=== PATIENT | female | born 1955 | race African-American/Black ===

== ENCOUNTER 2016-09-17 14:55 | Emergency (ER) | payer MEDICAID ==
[2016-09-17] MEDS ORDERED: ASPIRIN 325 MG TABLET, ENT COATED PO ONE (16:05)
[2016-09-17] MEDS ORDERED: FUROSEMIDE 40 MG TABLET PO ONE (16:05)
--- NOTE | 2016-09-17 16:06 | ER Document Report ---
ED Medical Screen (RME) - General Chief Complaint: Chest Pain Stated Complaint: CHEST PAINS Time Seen by Provider: 09/17/16 16:03 Mode of Arrival: Ambulatory Information source: Patient Notes: Patient complains of 2 day history of indigestion type midsternal chest discomfort associated shortness of breath. She also reports worsening shortness of breath and dyspnea on exertion for 2 weeks. Patient reports prior history of symptoms like this in association with congestive heart failure urine she reports no recent changes in her medicines. Also noted to be hypertensive and outpatient facility today and was referred to [facility] for that reason. She is pain-free at the moment Physical exam Well-developed well-nourished female alert no respiratory distress rest Skin warm and dry Chest faint crackles in bases bilaterally good aeration no accessory muscle use Heart regular rate and rhythm TRAVEL OUTSIDE OF THE [place] IN LAST 30 DAYS: No - Related Data Allergies/Adverse Reactions: No Known Allergies Allergy (Verified 09/17/16 15:46) Past Medical History - Past Medical History Cardiac Medical History: Reports: Hx Congestive Heart Failure - Chronic systolic last EF was 45%, Hx Coronary Artery Disease, Hx Hypercholesterolemia, Hx Hypertension Denies: Hx DVT, Hx Heart Attack, Hx Pulmonary Embolism Pulmonary Medical History: Reports: Hx Asthma - medicated prn/no hospitalizations, Hx Bronchitis, Hx COPD Denies: Hx Pneumonia Neurological Medical History: Reports: Hx Cerebrovascular Accident - several years ago/no residual effects. Denies: Hx Seizures Endocrine Medical History: Reports: Hx Diabetes Mellitus Type 2. Denies: Hx Hyperthyroidism, Hx Hypothyroidism Renal/ Medical History: Denies: Hx Peritoneal Dialysis GI Medical History: Denies: Hx Cirrhosis, Hx Gastroesophageal Reflux Disease, Hx Hepatitis, Hx Hiatal Hernia, Hx Ulcer Musculoskeltal Medical History: Denies Hx Arthritis Psychiatric Medical History: Reports: Hx Depression - denies suicidal/homicidal ideation Infectious Medical History: Denies: Hx Hepatitis Past Surgical History: Reports: Hx Section, Hx Tubal Ligation. Denies : Hx Hysterectomy, Hx Mastectomy, Hx Open Heart Surgery, Hx Pacemaker - Immunizations Hx Diphtheria, Pertussis, Tetanus Vaccination: No Physical Exam - Vital signs Vitals: Temp Pulse Resp BP Pulse Ox 98.5 F 86 18 185/93 H 95 09/17/16 15:18 09/17/16 15:18 09/17/16 15:18 09/17/16 15:18 09/17/16 15:18 Course - Vital Signs Vital signs: Temp Pulse Resp BP Pulse Ox 98.5 F 86 18 185/93 H 95 09/17/16 15:18 09/17/16 15:18 09/17/16 15:18 09/17/16 15:18 09/17/16 15:18
[2016-09-17 16:59] LABS: ABSOLUTE EOSINOPHILS # (AUTO) 0.1 10^3/uL (0.0-0.6); ABSOLUTE LYMPHOCYTES (AUTO) 1.9 10^3/uL (0.5-4.7); ABSOLUTE MONOCYTES (AUTO) 0.5 10^3/uL (0.1-1.4); ABSOLUTE NEUT (AUTO) 5.5 10^3/uL (1.7-8.2); BASOPHILS % (AUTO) 0.3 % (0-2); EOSINOPHILS % (AUTO) 0.8 % (0-6); HEMATOCRIT 39.3 % (36.0-47.0); HEMOGLOBIN 12.7 g/dL (12.0-15.5); HGB HCT DIFFERENCE -1.2; LYMPHOCYTES % (AUTO) 23.6 % (13-45); MEAN CORPUSCULAR HEMOGLOBIN 29.4 pg (27.0-33.4); MEAN CORPUSCULAR HGB CONC 32.3 g/dL (32.0-36.0); MEAN CORPUSCULAR VOLUME 91 fl (80-97); MONOCYTES % (AUTO) 6.1 % (3-13); RED BLOOD COUNT 4.33 10^6/uL (3.72-5.28); RED CELL DISTRIBUTION WIDTH 13.8 % (11.5-14.0); SEGMENTED NEUTROPHILS % (AUTO) 69.2 % (42-78)
[2016-09-17 17:19] LABS: ALANINE AMINOTRANSFERASE 23 U/L (9-52); ALBUMIN 4.1 g/dL (3.5-5.0); ALKALINE PHOSPHATASE 110 U/L (38-126); ANION GAP 12 (5-19); ASPARTATE AMINO TRANSFERASE 12 U/L (14-36); BILIRUBIN,DIRECT 0.4 mg/dL (0.0-0.4); BILIRUBIN,TOTAL 0.8 mg/dL (0.2-1.3); BLOOD UREA NITROGEN 15 mg/dL (7-20); CALCIUM 9.4 mg/dL (8.4-10.2); CARBON DIOXIDE 28 mmol/L (22-30); CHLORIDE 100 mmol/L (98-107); CREATINE KINASE 79 U/L (30-135); CREATININE RESULT 0.66 mg/dL (0.52-1.25); GLUCOSE 375 mg/dL (75-110); LIPASE 175.7 U/L (23-300); POTASSIUM 3.7 mmol/L (3.6-5.0); SODIUM 139.6 mmol/L (137-145); TOTAL PROTEIN 7.3 g/dL (6.3-8.2)
[2016-09-17 17:30] LABS: TROPONIN I < 0.012 ng/mL
[2016-09-17] MEDS ORDERED: LIDOCAINE 2% VISCOUS SOLN 20 ML UDCUP PO ONE (19:36)
[2016-09-17] MEDS ORDERED: MAG HYDROX/AL HYDROX/SIMETH SUSP 30 ML UDCUP PO ONE (19:36)
[2016-09-17] MEDS ORDERED: METOCLOPRAMIDE HCL ORAL SOLN 10 MG/10 ML UDCUP PO ONE (19:36)
--- NOTE | 2016-09-17 19:38 | ER Document Report ---
ED Cardiac - General Chief Complaint: Chest Pain Stated Complaint: CHEST PAINS Time Seen by Provider: 09/17/16 16:03 Mode of Arrival: Ambulatory Information source: Patient Notes: Patient is a 61-year-old -[place] female with history of CHF, diabetes, hypertension, hyperlipidemia who presents to the ER today for elevated blood pressure readings that began this morning with some intermittent chest pains. Patient describes her chest pain as "heartburn" and states that it is a burning feeling in the center of her chest that radiates over to the left. She has not taken anything for her chest pain today. She states that the chest pain is exacerbated by deep breathing. She states she was at the doctor this morning and had a normal blood pressure of 110/70. She has not taken her afternoon blood pressure medication yet, carvedilol. She has no history of heart attack or stroke. She denies any shortness of breath, nausea, vomiting, numbness or tingling anywhere. She denies any cough or other symptoms. TRAVEL OUTSIDE OF THE [place] IN LAST 30 DAYS: No - Related Data Allergies/Adverse Reactions: No Known Allergies Allergy (Verified 09/17/16 15:46) Past Medical History - General Information source: Patient - Social History Smoking Status: Never Smoker Chew tobacco use (# tins/day): No Frequency of alcohol use: None Drug Abuse: None Family History: CAD, CVA, DM Patient has suicidal ideation: No Patient has homicidal ideation: No - Past Medical History Cardiac Medical History: Reports: Hx Congestive Heart Failure - Chronic systolic last EF was 45%, Hx Coronary Artery Disease, Hx Hypercholesterolemia, Hx Hypertension Denies: Hx DVT, Hx Heart Attack, Hx Pulmonary Embolism Pulmonary Medical History: Reports: Hx Asthma - medicated prn/no hospitalizations, Hx Bronchitis, Hx COPD Denies: Hx Pneumonia Neurological Medical History: Reports: Hx Cerebrovascular Accident - several years ago/no residual effects. Denies: Hx Seizures Endocrine Medical History: Reports: Hx Diabetes Mellitus Type 2. Denies: Hx Hyperthyroidism, Hx Hypothyroidism Renal/ Medical History: Denies: Hx Peritoneal Dialysis GI Medical History: Denies: Hx Cirrhosis, Hx Gastroesophageal Reflux Disease, Hx Hepatitis, Hx Hiatal Hernia, Hx Ulcer Musculoskeltal Medical History: Denies Hx Arthritis Psychiatric Medical History: Reports: Hx Depression - denies suicidal/homicidal ideation Infectious Medical History: Denies: Hx Hepatitis Past Surgical History: Reports: Hx Section, Hx Tubal Ligation. Denies : Hx Hysterectomy, Hx Mastectomy, Hx Open Heart Surgery, Hx Pacemaker - Immunizations Hx Diphtheria, Pertussis, Tetanus Vaccination: No Review of Systems - Review of Systems Constitutional: No symptoms reported EENT: No symptoms reported Cardiovascular: See HPI Respiratory: See HPI Gastrointestinal: No symptoms reported Genitourinary: No symptoms reported Female Genitourinary: No symptoms reported Musculoskeletal: No symptoms reported Skin: No symptoms reported Hematologic/Lymphatic: No symptoms reported Neurological/Psychological: No symptoms reported Physical Exam - Vital signs Vitals: Temp Pulse Resp BP Pulse Ox 98.5 F 86 18 185/93 H 95 09/17/16 15:18 09/17/16 15:18 09/17/16 15:18 09/17/16 15:18 09/17/16 15:18 - Notes Notes: PHYSICAL EXAMINATION: GENERAL: Well-appearing, reading book, and in no acute distress. HEAD: Atraumatic, normocephalic. EYES: Pupils equal round and reactive to light, extraocular movements intact, sclera anicteric, conjunctiva are normal. NECK: Normal range of motion, supple without lymphadenopathy LUNGS: CTAB and equal. No wheezes rales or rhonchi. HEART: Left chest tender to palpation, Regular rate and rhythm without murmurs ABDOMEN: Soft, no tenderness. No guarding, no rebound BACK: no vertebral tenderness, normal ROM GI/: no CVA tenderness EXTREMITIES: Normal range of motion, no pitting edema. No cyanosis. NEUROLOGICAL: Cranial nerves grossly intact. Normal sensory/motor exams. PSYCH: Normal mood, normal affect. SKIN: Warm, Dry, normal turgor, no rashes or lesions noted Course - Re-evaluation Re-evalutation: 09/17/16 20:46 Patient states the GI cocktail did relieve her pain and also states that lifting her breast relieves her pain is well. She is tender to palpation chest. At this time she has 2 sets of negative cardiac enzymes 4 hours apart and an EKG revealing a normal sinus rhythm at a rate of 85 bpm without evidence of ischemia or abnormality. 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 Follow up with primary care provider, call tomorrow to make followup appointment. Prescriptions: Omeprazole Magnesium [Prilosec Otc] 20 mg PO BID #14 tablet. Sucralfate [Carafate 1 gm Tablet] 1 gm PO ACHS #40 tablet
[2016-09-17 20:04] LABS: APPEARANCE,URINE CLEAR; BILIRUBIN,URINE NEGATIVE (NEGATIVE); GLUCOSE, URINE NEGATIVE (NEGATIVE); KETONES,URINE NEGATIVE (NEGATIVE); LEUKOCYTE ESTERASE,URINE NEGATIVE (NEGATIVE); NITRITE,URINE NEGATIVE (NEGATIVE); PROTEIN,URINE NEGATIVE (NEGATIVE); URINE SPECIFIC GRAVITY 1.004; UROBILINOGEN,URINE NEGATIVE mg/dL (<2.0)
[2016-09-17 20:59] VITALS: BP 118/72
--- NOTE | 2016-09-17 23:38 | EKG REPORT ---
SEVERITY:- ABNORMAL ECG - SINUS RHYTHM PROBABLE LEFT ATRIAL ABNORMALITY LVH WITH SECONDARY REPOLARIZATION ABNORMALITY : Confirmed by: Sanjana Natarajan 17-Sep-2016 23:37:36
== END 2016-09-17 20:59 | disposition home or self-care (01) ==
LOC: ER 14:55
DX: R07.9 Chest pain, unspecified (principal); I10 Essential (primary) hypertension; I25.10 Atherosclerotic heart disease of native coronary artery without angina pectoris; E11.9 Type 2 diabetes mellitus without complications; J44.9 Chronic obstructive pulmonary disease, unspecified; Z79.899 Other long term (current) drug therapy; Z82.49 Family history of ischemic heart disease and other diseases of the circulatory system; Z86.73 Personal history of transient ischemic attack (TIA), and cerebral infarction without residual deficits
CPT/HCPCS: 93005; 99285; 36415; 82553; 82550; 83690; 85025; 80053; 81001; 84484; 83880; 71010; 93010; J3490 ×4

== ENCOUNTER → 2016-12-26 | Outpatient (CLI) | payer SELFPAY ==
--- NOTE | 2017-01-01 17:28 | WOMENS IMAGING REPORT ---
EXAM DESCRIPTION: BILAT SCREENING MAMMO W/CAD COMPLETED DATE/TIME: 12/26/2016 9:44 am REASON FOR STUDY: ROUTINE BILATERAL SCREENING;Z12.31 Z12.31 ENCNTR SCREEN MAMMOGRAM FOR MALIGNANT N EOPLASM OF MARITZA COMPARISON: 2013, 2012 TECHNIQUE: Standard craniocaudal and mediolateral oblique views of each breast recorded using [place] l acquisition. LIMITATIONS: None. FINDINGS: RIGHT BREAST MASSES: In the right breast, 10 cm from the nipple at the 12 o'clock position, for a 5 mm nodule is p resent, more prominent than on previous exams. This requires further evaluation with compression mag nification views, right breast 90 mediolateral view, and ultrasound. CALCIFICATIONS: No new or suspicious calcifications. ARCHITECTURAL DISTORTION: None. DEVELOPING DENSITY: None. ASYMMETRY: None noted. OTHER: No other significant findings. LEFT BREAST MASSES: No suspicious masses. CALCIFICATIONS: No new or suspicious calcifications. ARCHITECTURAL DISTORTION: None. DEVELOPING DENSITY: None. ASYMMETRY: None noted. OTHER: No other significant findings. Read with the assistance of CAD. .[facility] - R2 Cenova Version 1.3 .[facility] - R2 Cenova Version 1.3 .[facility] - R2 Cenova Version 2.4 .[facility] [place] R2 Cenova Version 2.4 .[facility] - R2 [employer] Version 9.2 IMPRESSION: Right breast nodule 12 o'clock position for which additional diagnostic compression magn ification views, 90 mediolateral view, and ultrasound are recommended for followup No mammographic evidence for malignancy left breast BREAST DENSITY: b. There are scattered areas of fibroglandular density. BIRAD: 0 Incomplete: Needs Additional Imaging Evaluation and/or prior Mammograms for Comparison. RECOMMENDATION: RECOMMENDED FOLLOW-UP: Right breast diagnostic mammograms and ultrasound The patient will be contacted for additional imaging. COMMENT: The patient has been notified of the results by letter per [place] requirements. Additional no tification policies are in place for contacting patient with suspicious or incomplete findings. Quality ID #[id number]: The [employer] recommends an annual screening mammogram for women aged 40 years or over. This facility utilizes a reminder system to ensure that all patients receive reminder letters, and/or direct phone calls for appointments. This includes reminders for routine scr eening mammograms, diagnostic mammograms, or other Breast Imaging Interventions when appropriate. Th is patient will be placed in the appropriate reminder system. The [employer] (ACR) has developed recommendations for screening MRI of the breast s in certain patient populations, to be used in conjunction with mammography. Breast MRI surveillanc e may be appropriate for women with more than 20% lifetime risk of developing breast cancer as deter mined by genetic testing, significant family history of the disease, or history of mantle radiation f or Hodgkins Disease. ACR Practice Guidelines 2008. TECHNICAL DOCUMENTATION: FINDING NUMBER: (1) ASSESSMENT: (1) JOB ID: [id number] [employer]- All Rights Reserved
== END ==
LOC: WI 09:56
PROVIDERS: ATTEND Physician Assistant
DX: Z12.31 Encounter for screening mammogram for malignant neoplasm of breast (principal); N63 Unspecified lump in breast
CPT/HCPCS: 77067; G0202

== ENCOUNTER → 2017-01-19 | Outpatient (CLI) | payer MEDICAID ==
--- NOTE | 2017-01-19 16:26 | WOMENS IMAGING REPORT ---
EXAM DESCRIPTION: RIGHT DIAGNOSTIC MAMMO W/CAD; U/S BREAST UNILATERAL, COMPL COMPLETED DATE/TIME: 01/19/2017 1:01 pm; 01/19/2017 11:22 am REASON FOR STUDY: NODULAR DENSITY N63 UNSPECIFIED LUMP IN BREAST COMPARISON: Bilateral screening mammogram 11/14/2011 TECHNIQUE: Cone compression craniocaudal and mediolateral oblique images of the breast recorded with digital acquisition. Right breast 90 mediolateral view. Right breast ultrasound performed by both myself as well as the technologist. LIMITATIONS: None. FINDINGS: BREAST: right MASSES: At the deep 12 o'clock position, a 5 mm mammographic nodule is present with lobular borders. No associated architectural distortion or calcifications. CALCIFICATIONS: No new or suspicious calcifications. ARCHITECTURAL DISTORTION: None. DEVELOPING DENSITY: None. ASYMMETRY: None noted. OTHER: No other significant findings. Right breast ultrasound: Ultrasound was performed by both myself as well as the technologist. The right breast 12 o'clock pos ition, a tiny cluster of cysts is present together measuring about 5 mm in size. This correlates wit h the mammographic findings this is a benign finding which requires no further follow-up. IMPRESSION: Small breast parenchymal cyst right side 12 o'clock position, benign. No mammographic o r sonographic evidence for malignancy. BREAST DENSITY: b. There are scattered areas of fibroglandular density. BIRAD: 2 Benign findings. RECOMMENDATION: RECOMMENDED FOLLOW UP: Please continue yearly bilateral screening mammography in Jan. Consider bilateral screening tomosynthesis. SPECIFIC INTERVENTION/IMAGING/CONSULTATION RECOMMENDED:No additional intervention/ imaging/consultati on needed at this time. COMMUNICATION:These results were discussed with the patient at the time of scanning COMMENT: The patient has been notified of the results by letter per MQ[facility] requirements. Additional no tification policies are in place for contacting patient with suspicious or incomplete findings. Quality ID #[id number]: The [employer] recommends an annual screening mammogram for women aged 40 years or over. This facility utilizes a reminder system to ensure that all patients receive reminder letters, and/or direct phone calls for appointments. This includes reminders for routine scr eening mammograms, diagnostic mammograms, or other Breast Imaging Interventions when appropriate. Th is patient will be placed in the appropriate reminder system. The [employer] (ACR) has developed recommendations for screening MRI of the breast s in certain patient populations, to be used in conjunction with mammography. Breast MRI surveillanc e may be appropriate for women with more than 20% lifetime risk of developing breast cancer as deter mined by genetic testing, significant family history of the disease, or history of mantle radiation f or Hodgkins Disease. ACR Practice Guidelines 2008. TECHNICAL DOCUMENTATION: FINDING NUMBER: (1) ASSESSMENT: (1) JOB ID: [id number]- All Rights Reserved
== END ==
LOC: WI 09:15
PROVIDERS: ATTEND Physician Assistant
DX: Z12.31 Encounter for screening mammogram for malignant neoplasm of breast (principal); N60.01 Solitary cyst of right breast
CPT/HCPCS: 76641; G0206

== ENCOUNTER 2018-06-06 03:49 | Inpatient (IN) | payer MEDICAID ==
[2018-06-06 04:21] LABS: INTERNATIONAL RATION (INR) 0.81; PROTHROMBIN TIME 11.7 SEC (11.4-15.4)
[2018-06-06 04:27] LABS: ABSOLUTE BASOPHILS # (AUTO) 0.1 10^3/uL (0.0-0.2); ABSOLUTE EOSINOPHILS # (AUTO) 0.4 10^3/uL (0.0-0.6); ABSOLUTE LYMPHOCYTES (AUTO) 3.3 10^3/uL (0.5-4.7); ABSOLUTE MONOCYTES (AUTO) 0.9 10^3/uL (0.1-1.4); BASOPHILS % (AUTO) 0.5 % (0-2); EOSINOPHILS % (AUTO) 3.7 % (0-6); HEMATOCRIT 42.6 % (36.0-47.0); HEMOGLOBIN 14.3 g/dL (12.0-15.5); LYMPHOCYTES % (AUTO) 28.3 % (13-45); MEAN CORPUSCULAR HEMOGLOBIN 31.5 pg (27.0-33.4); MEAN CORPUSCULAR HGB CONC 33.6 g/dL (32.0-36.0); MEAN CORPUSCULAR VOLUME 94 fl (80-97); MONOCYTES % (AUTO) 7.4 % (3-13); PLATELET COUNT 391 10^3/uL (150-450); RED BLOOD COUNT 4.54 10^6/uL (3.72-5.28); RED CELL DISTRIBUTION WIDTH 13.6 % (11.5-14.0); SEGMENTED NEUTROPHILS % (AUTO) 60.1 % (42-78); TOTAL CELLS COUNTED % (AUTO) 100 %; WHITE BLOOD COUNT 11.6 10^3/uL (4.0-10.5)
[2018-06-06] MEDS ORDERED: MAG HYDROX/AL HYDROX/SIMETH SUSP 30 ML UDCUP PO ONE (04:40)
[2018-06-06] MEDS ORDERED: FAMOTIDINE 20 MG TABLET PO ONE (04:40)
--- NOTE | 2018-06-06 04:41 | ER Document Report ---
ED Medical Screen (RME) - General Stated Complaint: CHEST PAIN Time Seen by Provider: 06/06/18 04:33 Primary Care Provider: HAILEY BARRETO PA-C [Primary Care Provider] - Follow up as needed Notes: 62-year-old female with chief complaint of chest pain that woke her up tonight. Pain is in the center of her chest. She states it feels like burning and she needs a Tums. Past medical history includes CHF, hypertension, hyperlipidemia, type 2 diabetes, denies history of heart attack. She admits to cocaine use within the past week but denies use over the past 48 hours. Already given 325 mg of aspirin, came by EMS. TRAVEL OUTSIDE OF THE [place] IN LAST 30 DAYS: No - Related Data Allergies/Adverse Reactions: No Known Allergies Allergy (Verified 09/17/16 15:46) Past Medical History - Past Medical History Cardiac Medical History: Reports: Hx Congestive Heart Failure - Chronic systolic last EF was 45%, Hx Coronary Artery Disease, Hx Hypercholesterolemia, Hx Hypertension Denies: Hx DVT, Hx Heart Attack, Hx Pulmonary Embolism Pulmonary Medical History: Reports: Hx Asthma - medicated prn/no hospitalizations, Hx Bronchitis, Hx COPD Denies: Hx Pneumonia Neurological Medical History: Reports: Hx Cerebrovascular Accident - several years ago/no residual effects. Denies: Hx Seizures Endocrine Medical History: Reports: Hx Diabetes Mellitus Type 2. Denies: Hx Hyperthyroidism, Hx Hypothyroidism Renal/ Medical History: Denies: Hx Peritoneal Dialysis GI Medical History: Denies: Hx Cirrhosis, Hx Gastroesophageal Reflux Disease, Hx Hepatitis, Hx Hiatal Hernia, Hx Ulcer Musculoskeltal Medical History: Denies Hx Arthritis Psychiatric Medical History: Reports: Hx Depression - denies suicidal/homicidal ideation Infectious Medical History: Denies: Hx Hepatitis Past Surgical History: Reports: Hx Section, Hx Tubal Ligation. Denies: Hx Hysterectomy, Hx Mastectomy, Hx Open Heart Surgery, Hx Pacemaker - Immunizations Hx Diphtheria, Pertussis, Tetanus Vaccination: No Physical Exam - Respiratory Respiratory status: No respiratory distress. No: Respiratory distress, Labored Chest status: Nontender Breath sounds: Rales - Rales noted bilaterally, worse on the right - Cardiovascular Rhythm: Regular, Extrasystoles. No: Tachycardia, Bradycardia Heart sounds: Normal auscultation, S1 appreciated, S2 appreciated Course - Laboratory Result Diagrams: 06/06/18 04:02 06/06/18 04:02 Laboratory results interpreted by me: 06/06/18 04:02 WBC 11.6 H Doctor's Discharge - Discharge Referrals: HAILEY BARRETO PA-C [Primary Care Provider] - Follow up as needed
--- NOTE | 2018-06-06 04:49 | RADIOLOGY REPORT (SQ) ---
EXAM DESCRIPTION: XR CHEST 1 VIEW COMPLETED DATE/TME: 06/06/2018 03:52 CLINICAL HISTORY: 62 years, Female, CP/SOB COMPARISON: 04/23/2016 chest NUMBER OF VIEWS: 1 TECHNIQUE: Portable chest LIMITATIONS: None. FINDINGS: Cardiomegaly. Osteopenia. Atheromatous change thoracic aorta. Lungs are clear. No pneumothorax IMPRESSION: Cardiomegaly. Lungs are clear copyright 2011 [employer]- All Rights Reserved
[2018-06-06 05:05] LABS: CREATINE KINASE MB 0.38 ng/mL (<4.55); TROPONIN I 0.016 ng/mL
[2018-06-06 06:12] LABS: ALANINE AMINOTRANSFERASE 8 U/L (9-52); ALBUMIN 3.9 g/dL (3.5-5.0); ALKALINE PHOSPHATASE 97 U/L (38-126); ANION GAP 7 (5-19); ASPARTATE AMINO TRANSFERASE 13 U/L (14-36); BILIRUBIN,DIRECT 0.3 mg/dL (0.0-0.4); BILIRUBIN,TOTAL 0.6 mg/dL (0.2-1.3); BLOOD UREA NITROGEN 17 mg/dL (7-20); CALCIUM 9.3 mg/dL (8.4-10.2); CARBON DIOXIDE 34 mmol/L (22-30); CHLORIDE 102 mmol/L (98-107); CREATINE KINASE 36 U/L (30-135); GLUCOSE 174 mg/dL (75-110); SODIUM 142.7 mmol/L (137-145); TOTAL PROTEIN 6.8 g/dL (6.3-8.2)
[2018-06-06] MEDS ORDERED: KETOROLAC TROMETHAMINE INJ/PF 30 MG/1 ML SDV IV ONE (06:31)
--- NOTE | 2018-06-06 07:53 | EKG REPORT ---
SEVERITY:- ABNORMAL ECG - SINUS RHYTHM PROBABLE LEFT ATRIAL ABNORMALITY LVH WITH SECONDARY REPOLARIZATION ABNORMALITY ANTERIOR ST ELEVATION, PROBABLY DUE TO LVH : Confirmed by: Marylin Cavazos MD 06-Jun-2018 07:52:46
--- NOTE | 2018-06-06 07:53 | EKG REPORT ---
SEVERITY:- ABNORMAL ECG - SINUS RHYTHM VENTRICULAR PREMATURE COMPLEX LVH WITH SECONDARY REPOLARIZATION ABNORMALITY : Confirmed by: Marylin Cavazos MD 06-Jun-2018 07:52:41
[2018-06-06] MEDS ORDERED: LEVALBUTEROL HCL NEB 0.63 MG/3 ML AMPUL NEB PRN (08:46)
[2018-06-06] MEDS ORDERED: ONDANSETRON HCL INJ/PF 4 MG/2 ML SDV IV PRN (08:46)
[2018-06-06] MEDS ORDERED: ALBUTEROL SULFATE 0.083% NEB 2.5 MG/3 ML AMPUL NEB PRN (08:46)
[2018-06-06] MEDS ORDERED: ACETAMINOPHEN 325 MG TABLET PO PRN (08:46)
[2018-06-06] MEDS ORDERED: GLUCAGON,HUMAN RECOMB 1 MG INJ IM PRN (09:05)
[2018-06-06] MEDS ORDERED: DEXTROSE 50%-WATER 25 GM/50 ML DISP.SYRIN IV PRN ×2 (09:05)
[2018-06-06] MEDS ORDERED: DEXTROSE 40% GEL 15 GM TUBE PO PRN ×2 (09:05)
--- NOTE | 2018-06-06 09:07 | PDOC H&P ---
History of Present Illness Admission Date/PCP: 06/06/2018 Patient complains of: Chest pain History of Present Illness: BARAK EWING is a 62 year old female history of a previous chest pain status post cardiac catheter twice no stent placements, history of congestive heart failure, history of cocaine use, hypertension, diabetes mellitus, hypertension, depression came to the emergency room with complaints of chest pain. This morning patient says she woke up and went to the restroom after she came back started to have the sudden onset of left-sided chest pains pain scale is 10 x 10 associated with nausea, sweating, shortness of breath ,localized pain describing the pain as heavyness/stabbing pain lasted for couple of hours-decided to came to the emergency room for further evaluation. The daughter gave the patient 4 baby aspirins at home without any relief of chest pain. In the emergency room workup was done by the ER physician EKGs when compared to the previous EKGs did not show any significant change his initial troponin is 0.06 and a repeat troponin is 0.0683. Medical consult was called for admission to rule out acute coronary syndrome. Past Medical History Cardiac Medical History: Reports: Congestive Heart Failure - Chronic systolic last EF was 45%, Coronary Artery Disease, Hyperlipidema, Hypertension Denies: DVT, Myocardial Infarction, Pulmonary Embolism Pulmonary Medical History: Reports: Asthma - medicated prn/no hospitalizations, Bronchitis, Chronic Obstructive Pulmonary Disease (COPD) Denies: Pneumonia Neurological Medical History: Denies: Seizures Endocrine Medical History: Reports: Diabetes Mellitus Type 2 Denies: Hyperthyroidism, Hypothyroidism GI Medical History: Denies: Cirrhosis, Gastroesophageal Reflux Disease, Hepatitis, Hiatal Hernia Musculoskeltal Medical History: Denies: Arthritis Psychiatric Medical History: Reports: Depression - denies suicidal/homicidal ideation Hematology: Denies: Anemia, Sickle Cell Disease Past Surgical History Past Surgical History: Reports: Section, Hysterectomy, Tubal Ligation Denies: Amputation, Mastectomy, Pacemaker Social History Information Source: Patient Smoking Status: Current Every Day Smoker Frequency of Alcohol Use: Rare Hx Recreational Drug Use: Yes - last use was prior to previous admission Drugs: Cocaine, None Hx Prescription Drug Abuse: No - Advance Directive Resuscitation Status: Full Code Family History Family History: CAD, CVA, DM Parental Family History Reviewed: Yes Children Family History Reviewed: Yes Sibling(s) Family History Reviewed.: Yes Medication/Allergy Home Medications: Aspirin [Ecotrin 81 mg EC Tablet] 81 mg PO DAILY #30 tabec 03/03/16 Furosemide [Lasix 20 mg Tablet] 40 mg PO QAM #90 tablet 03/18/16 Losartan Potassium 100 mg PO DAILY #30 tablet 03/18/16 Rosuvastatin Calcium 10 mg PO DAILY #30 03/18/16 Carvedilol 3.125 mg PO BID 04/23/16 Omeprazole Magnesium [Prilosec Otc] 20 mg PO BID #14 tablet. 09/17/16 Sucralfate [Carafate 1 gm Tablet] 1 gm PO ACHS #40 tablet 09/17/16 Allergies/Adverse Reactions: No Known Allergies Allergy (Verified 09/17/16 15:46) Review of Systems Constitutional: ABSENT: fever(s), headache(s) Eyes: ABSENT: visual disturbances Ears: ABSENT: hearing changes Cardiovascular: PRESENT: chest pain Respiratory: PRESENT: dyspnea Gastrointestinal: PRESENT: nausea Integumentary: ABSENT: rash, wounds Neurological: ABSENT: abnormal gait, abnormal speech, confusion, dizziness, focal weakness, syncope Psychiatric: ABSENT: anxiety, depression, homidical ideation, suicidal ideation Physical Exam Vital Signs: Temp Pulse Resp BP Pulse Ox 97.2 F 20 155/70 H 96 06/06/18 04:03 06/06/18 05:08 06/06/18 05:08 06/06/18 05:08 Intake & Output 06/05/18 06/06/18 06/07/18 06:59 06:59 06:59 Weight 74.843 kg General appearance: PRESENT: no acute distress Head exam: PRESENT: atraumatic Eye exam: PRESENT: PERRLA Mouth exam: PRESENT: moist Neck exam: ABSENT: carotid bruit, JVD, lymphadenopathy, thyromegaly Respiratory exam: PRESENT: decreased breath sounds Cardiovascular exam: PRESENT: RRR. ABSENT: diastolic murmur, rubs, systolic murmur GI/Abdominal exam: PRESENT: normal bowel sounds, soft. ABSENT: distended, guarding, mass, organolmegaly, rebound, tenderness Extremities exam: PRESENT: full ROM. ABSENT: calf tenderness, clubbing, pedal edema Neurological exam: PRESENT: alert, awake, oriented to person, oriented to place, oriented to time, oriented to situation, CN II-XII grossly intact. ABSENT: motor sensory deficit Psychiatric exam: PRESENT: appropriate affect, normal mood. ABSENT: homicidal ideation, suicidal ideation Results Laboratory Results: 06/06/18 04:02 06/06/18 05:10 06/06/18 06/06/18 06/06/18 04:02 04:02 05:10 WBC 11.6 H RBC 4.54 Hgb 14.3 Hct 42.6 MCV 94 MCH 31.5 MCHC 33.6 RDW 13.6 Plt Count 391 Seg Neutrophils % 60.1 Lymphocytes % 28.3 Monocytes % 7.4 Eosinophils % 3.7 Basophils % 0.5 Absolute Neutrophils 7.0 Absolute Lymphocytes 3.3 Absolute Monocytes 0.9 Absolute Eosinophils 0.4 Absolute Basophils 0.1 Sodium Cancelled 142.7 Potassium Cancelled 4.0 Chloride Cancelled 102 Carbon Dioxide Cancelled 34 H Anion Gap Cancelled 7 BUN Cancelled 17 Creatinine Cancelled 0.62 Est GFR ( Amer) Cancelled > 60 Est GFR (Non-Af Amer) Cancelled > 60 Glucose Cancelled 174 H Calcium Cancelled 9.3 Total Bilirubin Cancelled 0.6 AST Cancelled 13 L ALT Cancelled 8 L Alkaline Phosphatase Cancelled 97 Total Protein Cancelled 6.8 Albumin Cancelled 3.9 06/06/18 06/06/18 06/06/18 04:02 04:02 05:10 Creatine Kinase Cancelled 36 CK-MB (CK-2) 0.38 Troponin I 0.016 06/06/18 06:50 Creatine Kinase CK-MB (CK-2) Troponin I 0.083 Impressions: Chest X-Ray 06/06/18 03:52 IMPRESSION: Cardiomegaly. Lungs are clear copyright 2011 [employer]- All Rights Reserved Assessment & Plan - Diagnosis (1) Chest pain Is this a current diagnosis for this admission?: Yes Plan: 06/06/2018-patient came in with chest pains. Probably secondary to cocaine use. Cocaine may be causing the coronary arterial spasms. Plan is to put her in telemetry so far the EKG her troponins are normal. To do cardiac enzymes x3, echocardiogram, cardiology consult was requested. Plan is not to give beta-b lockers because of the cocaine use. Aspirin was started, placed on Lovenox 40 mg subcu daily. Patient is already on Crestor 10 mg p.o. nightly and lipid panel was requested for tomorrow morning. Patient was admitted under observation. (2) Cocaine use Plan: 06/06/2018 patient has history of chronic use of cocaine. she used the cocaine prior to the ER visit. Counseling was provided for more than 10 minutes to quit cocaine use. (3) CHF (congestive heart failure) Is this a current diagnosis for this admission?: Yes Plan: 06/06/2018 patient has history of congestive heart failure probably secondary to drug use. She is taking Lasix at home. On examination chest was clear no pedal edema. Patient is not in fluid overload. BNP was requested. We do not have any recent echocardiogram report requested for echocardiogram today. Patient is on Lasix 20 mg daily at home plan is to continue the medication during the hospital stay. (4) Hypertension Qualifiers: Hypertension type: essential hypertension Qualified Code(s): I10 - Essential (primary) hypertension Is this a current diagnosis for this admission?: Yes Plan: 06/06/2018 patient is given the history of hypertension. At home she is on amlodipine 10 mg p.o. daily, Coreg 25 mg p.o. twice a day, furosemide 20 mg daily. Plan is to hold Coreg because of the history of cocaine use. We will check the blood pressures every shift. (5) Diabetes 1.5, managed as type 2 Is this a current diagnosis for this admission?: Yes Plan: 06/06/2018-patient has a history of diabetes mellitus type 2 she is to take metformin at home that is 400 mg daily and she is also uses insulin at home patient does not know the name of the insulin she is taking plan is to start the patient on insulin sliding scale before meals and at bedtime to hold metformin and to check hemoglobin A1c during this hospital stay. (6) Smoker Is this a current diagnosis for this admission?: Yes Plan: 06/06/2018 patient has history of chronic smoking I am going to place her on nicotine patch 21 mg daily. Smoking counseling was provided more than 10 minutes patient was strongly advised to quit smoking. (7) Heartburn Is this a current diagnosis for this admission?: Yes Plan: 06/06/2018 patient is given the history of heartburn secondary to GERD. She was started on famotidine 20 mg p.o. twice a day. Chest pain may be secondary to heartburn. - Time Time Spent: 50 to 70 Minutes Smoking Cessation Education: over 10 minutes Anticipated discharge: Home
[2018-06-06] MEDS ORDERED: NICOTINE 21 MG/24 HR PATCH.TD24 TD ONE (09:08)
[2018-06-06] MEDS ORDERED: (PENDING PHARMACY ID) (Losartan Potassium [Losartan Potassium] 100 MG) PO SCH (10:00)
[2018-06-06] MEDS ORDERED: (PENDING PHARMACY ID) (Rosuvastatin Calcium [Rosuvastatin Calcium] 10 MG) PO SCH (10:00)
[2018-06-06] MEDS ORDERED: ENOXAPARIN SODIUM INJ 40 MG/0.4 ML DISP.SYRIN SUBCUT SCH (10:00)
[2018-06-06] MEDS: ASPIRIN 81 MG TABLET, ENT COATED PO SCH (10:13)
[2018-06-06] MEDS: SUCRALFATE 1 GM TABLET PO SCH ×3 (10:13→21:42)
[2018-06-06] MEDS: DOCUSATE SODIUM 100 MG CAPSULE PO SCH ×2 (10:13→18:00)
[2018-06-06] MEDS: LOSARTAN POTASSIUM 50 MG TABLET PO SCH (10:15)
[2018-06-06] MEDS: FAMOTIDINE INJ/PF 20 MG/2 ML SDV IV SCH ×2 (10:15→21:42)
--- NOTE | 2018-06-06 10:57 | ER Document Report ---
ED General - General Chief Complaint: Chest Pain Stated Complaint: CHEST PAIN Time Seen by Provider: 06/06/18 04:33 TRAVEL OUTSIDE OF THE [place] IN LAST 30 DAYS: No - HPI Patient complains to provider of: Chest pain Notes: Patient coming in for evaluation of chest pain. Patient seen by triage provider his notes provided below 62-year-old female with chief complaint of chest pain that woke her up tonight. Pain is in the center of her chest. She states it feels like burning and she needs a Tums. Past medical history includes CHF, hypertension, hyperlipidemia, type 2 diabetes, denies history of heart attack. She admits to cocaine use within the past week but denies use over the past 48 hours. Already given 325 mg of aspirin, came by EMS. Patient upon my evaluation stating that pain is better patient does state that she used cocaine however tells myself that he was on for a week ago. Patient denies any fever chills nausea vomiting denies any radiation of her chest pain. Patient denies any shortness of breath. Patient upon my evaluation is resting comfortably. Patient does state the pain is worse whenever she moves around no pain with deep breathing no recent travel A brief review of the patient's past medical records available in [employer] was performed - Related Data Allergies/Adverse Reactions: No Known Allergies Allergy (Verified 09/17/16 15:46) Past Medical History - Social History Smoking Status: Current Every Day Smoker Chew tobacco use (# tins/day): No Frequency of alcohol use: Rare Drug Abuse: Cocaine Family History: CAD, CVA, DM Patient has suicidal ideation: No Patient has homicidal ideation: No - Past Medical History Cardiac Medical History: Reports: Hx Congestive Heart Failure - Chronic systolic last EF was 45%, Hx Coronary Artery Disease, Hx Hypercholesterolemia, Hx Hypertension Denies: Hx DVT, Hx Heart Attack, Hx Pulmonary Embolism Pulmonary Medical History: Reports: Hx Asthma - medicated prn/no hos pitalizations, Hx Bronchitis, Hx COPD Denies: Hx Pneumonia Neurological Medical History: Reports: Hx Cerebrovascular Accident - several years ago/no residual effects. Denies: Hx Seizures Endocrine Medical History: Reports: Hx Diabetes Mellitus Type 2. Denies: Hx Hyperthyroidism, Hx Hypothyroidism Renal/ Medical History: Denies: Hx Peritoneal Dialysis GI Medical History: Denies: Hx Cirrhosis, Hx Gastroesophageal Reflux Disease, Hx Hepatitis, Hx Hiatal Hernia, Hx Ulcer Musculoskeletal Medical History: Denies Hx Arthritis Psychiatric Medical History: Reports: Hx Depression - denies suicidal/homicidal ideation Infectious Medical History: Denies: Hx Hepatitis Past Surgical History: Reports: Hx Section, Hx Hysterectomy, Hx Tubal Ligation. Denies: Hx Mastectomy, Hx Open Heart Surgery, Hx Pacemaker - Immunizations Hx Diphtheria, Pertussis, Tetanus Vaccination: No Review of Systems - Review of Systems Constitutional: No symptoms reported EENT: No symptoms reported Cardiovascular: Chest pain Respiratory: No symptoms reported Gastrointestinal: No symptoms reported Genitourinary: No symptoms reported Female Genitourinary: No symptoms reported Musculoskeletal: No symptoms reported Skin: No symptoms reported Hematologic/Lymphatic: No symptoms reported Neurological/Psychological: No symptoms reported Physical Exam - Vital signs Vitals: Pulse Ox 98 06/06/18 03:52 Interpretation: Normal - General General appearance: Appears well, Alert - HEENT Head: Normocephalic, Atraumatic Eyes: Normal Pupils: PERRL - Respiratory Respiratory status: No respiratory distress Chest status: Tender Breath sounds: Normal Chest palpation: Normal Notes: Palpation of the anterior chest wall does not reproduce the patient's pain - Cardiovascular Rhythm: Regular Heart sounds: Normal auscultation Murmur: No - Abdominal Inspection: Normal Distension: No distension Bowel sounds: Normal Tenderness: Nontender Organomegaly: No organomegaly - Back Back: Normal, Nontender - Extremities General upper extremity: Normal inspection, Nontender, Normal color, Normal ROM, Normal temperature General lower extremity: Normal inspection, Nontender, Normal color, Normal ROM, Normal temperature, Normal weight bearing. No: Kacie's sign - Neurological Neuro grossly intact: Yes Cognition: Normal Orientation: AAOx4 Bernice Coma Scale Eye Opening: Spontaneous [place] Coma Scale Verbal: Oriented Bernice Coma Scale Motor: Obeys Commands [place] Coma Scale Total: 15 Speech: Normal Motor strength normal: LUE, RUE, LLE, RLE Sensory: Normal - Psychological Associated symptoms: Normal affect, Normal mood - Skin Skin Temperature: Warm Skin Moisture: Dry Skin Color: Normal Course - Re-evaluation Re-evalutation: 06/06/18 13:28 Patient EKG does show some ST segment elevation that is very minimal in the anterior leads V2, V3, V4 which is similar to EKGs in the past. This is documented in knitting inspector notes more likely due to LVH patient denies history of any catheterization or stress testing. Initial troponin returned slightly elevated did encourage patient to stay for a second troponin at that upon my second evaluation patient requesting a leave is that she is chest pain-free. Second troponin returned elevated more than 3 times the initial however still indeterminate. Because of the continued elevation the patient's troponin do feel the best course would be to observe the patient discussed with the hospital staff agrees with observation at this time - Vital Signs Vital signs: Temp Pulse Resp BP Pulse Ox 97.2 F 20 155/70 H 96 06/06/18 04:03 06/06/18 05:08 06/06/18 05:08 06/06/18 05:08 - Laboratory Result Diagrams: 06/06/18 04:02 06/06/18 05:10 Laboratory results interpreted by me: 06/06/18 06/06/18 04:02 05:10 WBC 11.6 H Carbon Dioxide 34 H Glucose 174 H AST 13 L ALT 8 L Discharge - Discharge Clinical Impression: Cocaine use, Obstructive sleep apnea, Smoker, Dyslipidemia Hypertension Qualifiers: Hypertension type: essential hypertension Qualified Code(s): I10 - Essential (primary) hypertension Chest pain Qualifiers: Chest pain type: other chest pain Qualified Code(s): R07.89 - Other chest pain Condition: Good Disposition: ADMITTED OBSERVATION Admitting Provider: Hospitalist - [facility] Unit Admitted: Telemetry
[2018-06-06 11:23] LABS: CREATINE KINASE MB 3.63 ng/mL (<4.55)
[2018-06-06 11:30] LABS: TROPONIN I 0.53 ng/mL
--- NOTE | 2018-06-06 12:16 | XCELERA REPORT ---
[address] [address] Transthoracic Echocardiogram Report Name: BARAK EWING Age: 62 yrs Gender: Female : 1955 Patient Status: Emergency Patient Location: ER Study Date: 06/06/2018 10:05 AM Reason For Study: chest pain Ordering Physician: CELESTINO LEBRON Performed By: Federico Gruber Interpretation Summary Study quality fair. Mild asymmetrical LVH with LVEF visually estimated low normal at around 50% and 48% by biplane method. RV size and systolic function appears normal. The transmitral spectral Doppler flow pattern is abnormal for age There is a mild amount of mitral regurgitation AV leaflets appear focally thickened/ calcified but appear to open well. There is a trace amount of tricuspid regurgitation Right ventricular systolic pressure is normal. There is a trace or physiologic amount of pulmonic regurgitation There is no pericardial effusion. IVC normal in size and respiratory variation. The aortic root is normal size. MMode/2D Measurements & Calculations RVDd: 2.5 cm LVIDd: 5.9 cm FS: 15.5 % Ao root diam: IVSd: 0.98 cm LVIDs: 5.0 cm EDV(Teich): 175.0 ml2.5 cm LVPWd: 1.3 cm ESV(Teich): 118.6 mlAo root area: EF(Teich): 32.2 % 4.9 cm2 LVOT diam: 1.8 cmEDV(MOD-sp4): SV(MOD-sp4): LVOT area: 188.7 ml 108.2 ml 2.4 cm2 ESV(MOD-sp4): 80.5 ml EF(MOD-sp4): 57.3 % Doppler Measurements & Calculations MV E max cachorro: MV dec slope: Ao V2 max: LV V1 max P.3 cm/sec 140.7 cm/sec 6.2 mmHg MV A max cachorro: 470.4 cm/sec2 Ao max PG: LV V1 mean P.9 cm/sec MV dec time: 7.9 mmHg 2.9 mmHg MV E/A: 1.6 0.22 sec Ao V2 mean: LV V1 max: 97.1 cm/sec 124.8 cm/sec Ao mean PG: LV V1 mean: 4.2 mmHg 78.8 cm/sec Ao V2 VTI: 25.5 cmLV V1 VTI: 22.5 cm JONATHON(I,D): 2.1 cm2 JONATHON(V,D): 2.2 cm2 MR max cachorro: SV(LVOT): 54.6 ml PA V2 max: PI end-d cachorro: 417.9 cm/sec 76.4 cm/sec 94.6 cm/sec MR max PG: PA max P.9 mmHg 2.3 mmHg TR max cachorro: 234.8 cm/sec TR max P.0 mmHg Left Ventricle LV EF is 50%. The transmitral spectral Doppler flow pattern is abnormal for age. Right Ventricle A moderator band is seen in the right ventricle. The right ventricle is normal in size, thickness and function. The right ventricular systolic function is normal. Atria The right atrium is normal. LA volume index not provided. Mitral Valve The mitral valve leaflets appear thickened, but open well. There is no mitral valve stenosis. There is a mild amount of mitral regurgitation. Aortic Valve AV leaflets appear focally thickened/ calcified but appear to open well. The aortic valve is trileaflet. There is a peak gradient of 7.92 mm of Hg. Tricuspid Valve TV partially seen. There is a trace amount of tricuspid regurgitation. Right ventricular systolic pressure is normal. Pulmonic Valve The pulmonic valve is not well visualized. There is a trace or physiologic amount of pulmonic regurgitation. Great Vessels The aortic root is normal size. IVC normal in size and respiratory variation. Effusions There is no pericardial effusion. : CELESTINO LEBRON > Merrick Hollins
[2018-06-06 12:26] LABS: AMORPHOUS SEDIMENT,URINE TRACE /HPF; APPEARANCE,URINE CLOUDY; BILIRUBIN,URINE NEGATIVE (NEGATIVE); COLOR,URINE AMBER; GLUCOSE, URINE NEGATIVE (NEGATIVE); KETONES,URINE TRACE mg/dL (NEGATIVE); LEUKOCYTE ESTERASE,URINE NEGATIVE (NEGATIVE); NITRITE,URINE NEGATIVE (NEGATIVE); PROTEIN,URINE NEGATIVE (NEGATIVE); URINE SPECIFIC GRAVITY 1.032
[2018-06-06 12:39] LABS: URINE AMPHETAMINES SCREEN NEGATIVE; URINE BARBITURATES SCREEN NEGATIVE; URINE BENZODIAZEPINES SCREEN NEGATIVE; URINE COCAINE SCREEN UNCONFIRMED POSITIVE; URINE MARIJUANA (THC) SCREEN NEGATIVE; URINE METHADONE SCREEN NEGATIVE; URINE PHENCYCLIDINE SCREEN NEGATIVE
--- NOTE | 2018-06-06 12:42 | PDOC CONSULTATION ---
Consultation Consult Date: 06/06/18 Consult reason:: chest pain History of Present Illness Admission Date/PCP: 06/06/18 10:17 History of Present Illness: BARAK EWING is a 62 year old female with with past medical history of substance abuse with both cigarette smoking and cocaine use, hypertension, hyperlipidemia comes in with complaints of left-sided chest pain which she claims happened at rest last night and felt like a pressure but has improved somewhat since she has been in the ER. 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 She claims she has had more than one stress test in the past which were negative but cannot recollect if she ever had a cardiac cath. She used to smoke almost a pack of cigarettes a day but now smokes 1-2 cigarettes a day. She also claims that she uses cocaine once or twice a month and use it around 6 days ago. She is single and lives with her boyfriend for the last 20 years. She denies any previous cardiac stents or bypass surgery. She claims that her mother had a stroke. At this point of time she denies any shortness of breath but still reports chest pain at rest which is not related or worsened by exertion or postural change. He also gives a history of heartburn and nausea at times and feels like her chest pain is related to her diet. Past Medical History Cardiac Medical History: Reports: Congestive Heart Failure - Chronic systolic last EF was 45%, Coronary Artery Disease, Hyperlipidema, Hypertension Denies: DVT, Myocardial Infarction, Pulmonary Embolism Pulmonary Medical History: Reports: Asthma - medicated prn/no hospitalizations, Bronchitis, Chronic Obstructive Pulmonary Disease (COPD) Denies: Pneumonia Neurological Medical History: Denies: Seizures Endocrine Medical History: Reports: Diabetes Mellitus Type 2 Denies: Hyperthyroidism, Hypothyroidism GI Medical History: Denies: Cirrhosis, Gastroesophageal Reflux Disease, Hepatitis, Hiatal Hernia Musculoskeltal Medical History: Denies: Arthritis Psychiatric Medical History: Reports: Depression - denies suicidal/homicidal ideation, Substance Abuse, Tobacco Dependency Hematology: Denies: Anemia, Sickle Cell Disease Past Surgical History Past Surgical History: Reports: Section, Hysterectomy, Tubal Ligation Denies: Amputation, Mastectomy, Pacemaker Social History Smoking Status: Current Every Day Smoker Frequency of Alcohol Use: Rare Hx Recreational Drug Use: Yes - last use was prior to previous admission Drugs: None, Cocaine Hx Prescription Drug Abuse: No - Advance Directive Resuscitation Status: Full Code Family History Family History: CAD, CVA, DM Parental Family History Reviewed: Yes Children Family History Reviewed: Unknown Sibling(s) Family History Reviewed.: Unknown Medication/Allergy Home Medications: Aspirin [Ecotrin 81 mg EC Tablet] 81 mg PO DAILY #30 tabec 03/03/16 Furosemide [Lasix 20 mg Tablet] 40 mg PO QAM #90 tablet 03/18/16 Losartan Potassium 100 mg PO DAILY #30 tablet 03/18/16 Rosuvastatin Calcium 10 mg PO DAILY #30 03/18/16 Carvedilol 3.125 mg PO BID 04/23/16 Omeprazole Magnesium [Prilosec Otc] 20 mg PO BID #14 tablet. 09/17/16 Sucralfate [Carafate 1 gm Tablet] 1 gm PO ACHS #40 tablet 09/17/16 Allergies/Adverse Reactions: No Known Allergies Allergy (Verified 09/17/16 15:46) Review of Systems Cardiovascular: PRESENT: chest pain, dyspnea on exertion Gastrointestinal: PRESENT: heartburn Physical Exam Vital Signs: Temp Pulse Resp BP Pulse Ox 97.2 F 20 155/70 H 96 06/06/18 04:03 06/06/18 05:08 06/06/18 05:08 06/06/18 05:08 Intake & Output 06/05/18 06/06/18 06/07/18 06:59 06:59 06:59 Weight 74.843 kg General appearance: PRESENT: no acute distress Head exam: PRESENT: atraumatic, normocephalic Respiratory exam: PRESENT: chest wall tenderness, clear to auscultation sindy Pulses: PRESENT: normal radial pulses, normal femoral pulses, normal dorsalis pedis pul, +2 pedal pulses bilateral Musculoskeletal exam: PRESENT: ambulatory, full ROM Neurological exam: PRESENT: alert, oriented to person, oriented to place, oriented to time, oriented to situation, CN II-XII grossly intact Results Laboratory Results: 06/06/18 04:02 06/06/18 05:10 06/06/18 06/06/18 06/06/18 04:02 04:02 05:10 WBC 11.6 H RBC 4.54 Hgb 14.3 Hct 42.6 MCV 94 MCH 31.5 MCHC 33.6 RDW 13.6 Plt Count 391 Seg Neutrophils % 60.1 Lymphocytes % 28.3 Monocytes % 7.4 Eosinophils % 3.7 Basophils % 0.5 Absolute Neutrophils 7.0 Absolute Lymphocytes 3.3 Absolute Monocytes 0.9 Absolute Eosinophils 0.4 Absolute Basophils 0.1 Sodium Cancelled 142.7 Potassium Cancelled 4.0 Chloride Cancelled 102 Carbon Dioxide Cancelled 34 H Anion Gap Cancelled 7 BUN Cancelled 17 Creatinine Cancelled 0.62 Est GFR ( Amer) Cancelled > 60 Est GFR (Non-Af Amer) Cancelled > 60 Glucose Cancelled 174 H Calcium Cancelled 9.3 Total Bilirubin Cancelled 0.6 AST Cancelled 13 L ALT Cancelled 8 L Alkaline Phosphatase Cancelled 97 Total Protein Cancelled 6.8 Albumin Cancelled 3.9 Urine Color Urine Appearance Urine pH Ur Specific [place] Urine Protein Urine Glucose (UA) Urine Ketones Urine Blood Urine Nitrite Ur Leukocyte Esterase Urine WBC (Auto) Urine RBC (Auto) 06/06/18 11:37 WBC RBC Hgb Hct MCV MCH MCHC RDW Plt Count Seg Neutrophils % Lymphocytes % Monocytes % Eosinophils % Basophils % Absolute Neutrophils Absolute Lymphocytes Absolute Monocytes Absolute Eosinophils Absolute Basophils Sodium Potassium Chloride Carbon Dioxide Anion Gap BUN Creatinine Est GFR ( Amer) Est GFR (Non-Af Amer) Glucose Calcium Total Bilirubin AST ALT Alkaline Phosphatase Total Protein Albumin Urine Color [place] Urine Appearance CLOUDY Urine pH 5.0 Ur Specific [place] 1.032 Urine Protein NEGATIVE Urine Glucose (UA) NEGATIVE Urine Ketones TRACE H Urine Blood NEGATIVE Urine Nitrite NEGATIVE Ur Leukocyte Esterase NEGATIVE Urine WBC (Auto) 5 Urine RBC (Auto) 1 06/06/18 06/06/18 06/06/18 04:02 04:02 05:10 Creatine Kinase Cancelled 36 CK-MB (CK-2) 0.38 Troponin I 0.016 06/06/18 06/06/18 06/06/18 06:50 10:33 10:33 Creatine Kinase 62 CK-MB (CK-2) 3.63 Troponin I 0.083 0.530 Impressions: Chest X-Ray 06/06/18 03:52 IMPRESSION: Cardiomegaly. Lungs are clear copyright 2011 [email or web address]- All Rights Reserved Assessment & Plan - Diagnosis (1) Chest pain Qualifiers: Chest pain type: other chest pain Qualified Code(s): R07.89 - Other chest pain; R07.8 - Other chest pain Is this a current diagnosis for this admission?: Yes (2) Elevated troponin I level Is this a current diagnosis for this admission?: Yes (3) Hypertension Qualifiers: Hypertension type: essential hypertension Qualified Code(s): I10 - Essential (primary) hypertension Is this a current diagnosis for this admission?: Yes (5) Smoker Is this a current diagnosis for this admission?: Yes - Notes Notes: Reviewed labs, EKG and imaging test. Patient with multiple risk factors for atherosclerotic cardiovascular disease and continued substance abuse presents with somewhat atypical chest pain and found to have elevated cardiac biomarkers. EKG shows sinus rhythm with LVH with secondary repolarization changes. Recent cocaine use can lead to myocardial injury and elevated cardiac biomarkers. In view of her multiple risk for atherosclerotic disease will treated as a non-ST elevation [place] and recommend aspirin, statin, therapeutic anticoagulation and avoidance of beta-gregorio therapy at this point of time. Recommend urine toxicology. Reviewed her echocardiogram and she has low normal EF at around 50% and her echocardiogram a few years ago showed a EF of 45-50%. Recommend getting old records of the patient to see if she is ever had any cardiac catheterization and if not then she would need invasive coronary workup to rule out obstructive coronary artery disease. As discussed at length with patient need for risk factor reduction and lifestyle changes including substance abuse cessation. Will discuss with Dr. Cavazos who is going to assume care of the patient tomorrow regarding timing of her cardiac catheterization. - Time Time Spent: Greater than 70 Minutes Smoking Education Provided: Over 3 minutes
[2018-06-06] MEDS: INSULIN REG, HUMAN 100 UNIT/ML 3 ML VIAL (PYX) SUBCUT PRN (13:05)
[2018-06-06 17:10] LABS: CREATINE KINASE MB 3.42 ng/mL (<4.55)
[2018-06-06 17:14] LABS: TROPONIN I 0.832 ng/mL
[2018-06-06] MEDS: CITALOPRAM HYDROBROMIDE 20 MG TABLET PO SCH (18:00)
[2018-06-06] MEDS: ATORVASTATIN CALCIUM 20 MG TABLET PO SCH (21:42)
[2018-06-06] MEDS: ENOXAPARIN SODIUM INJ 80 MG/0.8 ML DISP.SYRIN SUBCUT SCH (21:43)
[2018-06-06] MEDS ORDERED: ENOXAPARIN SODIUM INJ 80 MG/0.8 ML DISP.SYRIN SUBCUT SCH (22:00)
[2018-06-06] MEDS ORDERED: CARVEDILOL 12.5 MG TABLET PO SCH (22:00)
[2018-06-06] MEDS ORDERED: CARVEDILOL 3.125 MG TABLET PO SCH (22:00)
[2018-06-06 22:59] LABS: CREATINE KINASE MB 2.72 ng/mL (<4.55); TROPONIN I 0.765 ng/mL
[2018-06-07 04:42] LABS: HEMATOCRIT 37.7 % (36.0-47.0); HEMOGLOBIN 12.5 g/dL (12.0-15.5); MEAN CORPUSCULAR HEMOGLOBIN 30.7 pg (27.0-33.4); MEAN CORPUSCULAR HGB CONC 33.1 g/dL (32.0-36.0); MEAN CORPUSCULAR VOLUME 93 fl (80-97); PLATELET COUNT 345 10^3/uL (150-450); RED BLOOD COUNT 4.07 10^6/uL (3.72-5.28); RED CELL DISTRIBUTION WIDTH 13.6 % (11.5-14.0); WHITE BLOOD COUNT 8.2 10^3/uL (4.0-10.5)
[2018-06-07 04:48] LABS: INTERNATIONAL RATION (INR) 0.88; PROTHROMBIN TIME 12.4 SEC (11.4-15.4)
[2018-06-07 05:07] LABS: ALANINE AMINOTRANSFERASE 14 U/L (9-52); ALBUMIN 3.5 g/dL (3.5-5.0); ALKALINE PHOSPHATASE 73 U/L (38-126); ANION GAP 7 (5-19); ASPARTATE AMINO TRANSFERASE 14 U/L (14-36); BILIRUBIN,DIRECT 0.2 mg/dL (0.0-0.4); BILIRUBIN,TOTAL 0.5 mg/dL (0.2-1.3); BLOOD UREA NITROGEN 18 mg/dL (7-20); CARBON DIOXIDE 32 mmol/L (22-30); CHLORIDE 103 mmol/L (98-107); CHOLESTEROL 181.39 mg/dL (0-200); CREATINE KINASE 52 U/L (30-135); GLUCOSE 140 mg/dL (75-110); POTASSIUM 4.2 mmol/L (3.6-5.0); SODIUM 141.8 mmol/L (137-145); TOTAL PROTEIN 6.2 g/dL (6.3-8.2); TRIGLYCERIDES 104 mg/dL (<150)
[2018-06-07 05:18] LABS: DIRECT LDL 110 mg/dL (<100)
[2018-06-07 05:19] LABS: CREATINE KINASE MB 1.65 ng/mL (<4.55); TROPONIN I 0.563 ng/mL
--- NOTE | 2018-06-07 07:29 | EKG REPORT ---
SEVERITY:- ABNORMAL ECG - SINUS RHYTHM PROBABLE LEFT ATRIAL ABNORMALITY LEFT VENTRICULAR HYPERTROPHY BORDERLINE PROLONGED QT INTERVAL : Confirmed by: Marylin Cavazos MD 07-Jun-2018 07:28:45
[2018-06-07] MEDS: SUCRALFATE 1 GM TABLET PO SCH ×4 (08:45→21:35)
[2018-06-07] MEDS: FUROSEMIDE 20 MG TABLET PO SCH ×2 (08:46)
[2018-06-07] MEDS ORDERED: (PENDING PHARMACY ID) (Citalopram Hydrobromide [Citalopram Hbr] 20 MG) PO SCH (10:00)
[2018-06-07] MEDS: DOCUSATE SODIUM 100 MG CAPSULE PO SCH ×2 (10:25→17:15)
[2018-06-07] MEDS: CITALOPRAM HYDROBROMIDE 20 MG TABLET PO SCH (10:25)
[2018-06-07] MEDS: ASPIRIN 81 MG TABLET, ENT COATED PO SCH (10:25)
[2018-06-07] MEDS: AMLODIPINE BESYLATE 10 MG TABLET PO SCH (10:25)
[2018-06-07] MEDS: FAMOTIDINE INJ/PF 20 MG/2 ML SDV IV SCH ×2 (10:26→21:35)
[2018-06-07] MEDS: LOSARTAN POTASSIUM 50 MG TABLET PO SCH (10:26)
[2018-06-07] MEDS: ENOXAPARIN SODIUM INJ 80 MG/0.8 ML DISP.SYRIN SUBCUT SCH ×2 (10:26→21:34)
--- NOTE | 2018-06-07 10:51 | PDOC PROGRESS REPORT ---
Subjective Progress Note for:: 06/07/18 Subjective:: 06/07/2018-this 62-year-old female came to the emergency room with complaints of chest pain he has a previous history of chest pain is also admitting using cocaine before the ER visit. Troponins are slightly elevated at the time of admission and trended up 2.8 on the latest troponin is 0.563. No EKG changes. Discussed the care with the tag writer yesterday he recommended cardiac cath. This morning he had a long discussion with the patient patient agreed to have a cardiac catheter tomorrow. We are going to repeat the cardiac enzymes today. INR is 0.88 today. She is going to receive Lovenox 75 mg at 6 PM instead of 10 PM tonight. Reason For Visit: CHEST PAIN Physical Exam Vital Signs: Temp Pulse Resp BP Pulse Ox 98.5 F 59 L 14 150/71 H 95 06/07/18 05:02 06/07/18 10:30 06/07/18 10:30 06/07/18 05:02 06/07/18 10:30 Intake & Output 06/06/18 06/07/18 06/08/18 06:59 06:59 06:59 Intake Total 280 Balance 280 Weight 74.843 kg 71.3 kg General appearance: PRESENT: no acute distress Head exam: PRESENT: atraumatic Eye exam: PRESENT: PERRLA Neck exam: ABSENT: carotid bruit, JVD, lymphadenopathy, thyromegaly Respiratory exam: PRESENT: clear to auscultation sindy. ABSENT: rales, rhonchi, wheezes Cardiovascular exam: PRESENT: RRR. ABSENT: diastolic murmur, rubs, systolic murmur GI/Abdominal exam: PRESENT: normal bowel sounds, soft. ABSENT: distended, guarding, mass, organolmegaly, rebound, tenderness Extremities exam: PRESENT: full ROM. ABSENT: calf tenderness, clubbing, pedal edema Neurological exam: PRESENT: alert, awake, oriented to person, oriented to place, oriented to time, oriented to situation, CN II-XII grossly intact. ABSENT: motor sensory deficit Psychiatric exam: PRESENT: appropriate affect, normal mood. ABSENT: homicidal ideation, suicidal ideation Results Laboratory Results: 06/07/18 04:08 06/07/18 04:08 06/06/18 06/07/18 06/07/18 11:37 04:08 04:08 WBC 8.2 RBC 4.07 Hgb 12.5 Hct 37.7 MCV 93 MCH 30.7 MCHC 33.1 RDW 13.6 Plt Count 345 Sodium 141.8 Potassium 4.2 Chloride 103 Carbon Dioxide 32 H Anion Gap 7 BUN 18 Creatinine 0.68 Est GFR ( Amer) > 60 Est GFR (Non-Af Amer) > 60 Glucose 140 H Calcium 9.0 Magnesium 2.0 Total Bilirubin 0.5 AST 14 ALT 14 Alkaline Phosphatase 73 Total Protein 6.2 L Albumin 3.5 Triglycerides 104 Cholesterol 181.39 LDL Cholesterol Direct 110 H VLDL Cholesterol 21.0 HDL Cholesterol 47 TSH Urine Color [place] Urine Appearance CLOUDY Urine pH 5.0 Ur Specific [place] 1.032 Urine Protein NEGATIVE Urine Glucose (UA) NEGATIVE Urine Ketones TRACE H Urine Blood NEGATIVE Urine Nitrite NEGATIVE Ur Leukocyte Esterase NEGATIVE Urine WBC (Auto) 5 Urine RBC (Auto) 1 06/07/18 04:08 WBC RBC Hgb Hct MCV MCH MCHC RDW Plt Count Sodium Potassium Chloride Carbon Dioxide Anion Gap BUN Creatinine Est GFR ( Amer) Est GFR (Non-Af Amer) Glucose Calcium Magnesium Total Bilirubin AST ALT Alkaline Phosphatase Total Protein Albumin Triglycerides Cholesterol LDL Cholesterol Direct VLDL Cholesterol HDL Cholesterol TSH 2.14 Urine Color Urine Appearance Urine pH Ur Specific [place] Urine Protein Urine Glucose (UA) Urine Ketones Urine Blood Urine Nitrite Ur Leukocyte Esterase Urine WBC (Auto) Urine RBC (Auto) 06/06/18 06/06/18 06/06/18 04:02 04:02 05:10 Creatine Kinase Cancelled 36 CK-MB (CK-2) 0.38 Troponin I 0.016 NT-Pro-B Natriuret Pep 06/06/18 06/06/18 06/06/18 06:50 10:33 10:33 Creatine Kinase 62 CK-MB (CK-2) 3.63 Troponin I 0.083 0.530 NT-Pro-B Natriuret Pep 06/06/18 06/06/18 06/06/18 16:20 16:20 22:23 Creatine Kinase 69 49 CK-MB (CK-2) 3.42 Troponin I 0.832 NT-Pro-B Natriuret Pep 06/06/18 06/07/18 06/07/18 22:23 04:08 04:08 Creatine Kinase 52 CK-MB (CK-2) 2.72 1.65 Troponin I 0.765 0.563 NT-Pro-B Natriuret Pep 1010 H Impressions: Chest X-Ray 06/06/18 03:52 IMPRESSION: Cardiomegaly. Lungs are clear copyright 2010 [employer]- All Rights Reserved Assessment & Plan - Diagnosis (1) Chest pain Qualifiers: Chest pain type: other chest pain Qualified Code(s): R07.89 - Other chest pain; R07.8 - Other chest pain Is this a current diagnosis for this admission?: Yes Plan: 06/06/2018-patient came in with chest pains. Probably secondary to cocaine use. Cocaine may be causing the coronary arterial spasms. Plan is to put her in telemetry so far the EKG her troponins are normal. To do cardiac enzymes x3, echocardiogram, cardiology consult was requested. Plan is not to give beta- blockers because of the cocaine use. Aspirin was started, placed on Lovenox 40 mg subcu daily. Patient is already on Crestor 10 mg p.o. nightly and lipid panel was requested for tomorrow morning. Patient was admitted under observation. 06/07/2018-patient came in with chest pain. Acute HI core measures were implemented. Initial troponin is 0.5 trended up to 0.863 and latest troponin is 0.56. Discussed the care with tag writer yesterday he is recommended cardiac cath. Patient agreed for the cardiac catheter tomorrow. Be going to give her Lovenox 75 mg subcu at 6 PM today instead of 10 PM for cardiac catheter tomorrow INR is 0.88. Patient status is going to be changed from observation to inpatient. Chest pain most likely due to cocaine use causing coronary artery spasm. (2) Cocaine use Is this a current diagnosis for this admission?: Yes Plan: 06/06/2018 patient has history of chronic use of cocaine. she used the cocaine prior to the ER visit. Counseling was provided for more than 10 minutes to quit cocaine use. 06/07/2018-patient has history of cocaine use. She admitted to take cocaine before her ER visit. Patient was strongly advised to quit using cocaine. (3) CHF (congestive heart failure) Is this a current diagnosis for this admission?: Yes Plan: 06/06/2018 patient has history of congestive heart failure probably secondary to drug use. She is taking Lasix at home. On examination chest was clear no pedal edema. Patient is not in fluid overload. BNP was requested. We do not have any recent echocardiogram report requested for echocardiogram today. Patient is on Lasix 20 mg daily at home plan is to continue the medication during the hospital stay. 06/07/2018-patient has history of congestive heart failure. BNP is 1000. Echocardiogram was requested. Patient is presently on Lasix 20 mg p.o. daily plan to continue the present management. In my opinion patient has a chronic congestive heart failure with EF of around 50%. she has a systolic heart failure. (4) Hypertension Qualifiers: Hypertension type: essential hypertension Qualified Code(s): I10 - Essential (primary) hypertension Is this a current diagnosis for this admission?: Yes Plan: 06/06/2018 patient is given the history of hypertension. At home she is on amlodipine 10 mg p.o. daily, Coreg 25 mg p.o. twice a day, furosemide 20 mg daily. Plan is to hold Coreg because of the history of cocaine use. We will check the blood pressures every shift. 06/07/2018-patient's blood pressure today is 150/71. Asymptomatic. Presently on amlodipine 10 mg p.o. daily furosemide 20 mg daily. Coreg was on hold for now and the patient is going for cardiac catheter tomorrow. (5) Diabetes 1.5, managed as type 2 Is this a current diagnosis for this admission?: Yes Plan: 06/06/2018-patient has a history of diabetes mellitus type 2 she is to take metformin at home that is 400 mg daily and she is also uses insulin at home patient does not know the name of the insulin she is taking plan is to start the patient on insulin sliding scale before meals and at bedtime to hold metformin and to check hemoglobin A1c during this hospital stay. 06/07/2018-patient has history of type 2 diabetes mellitus she is taking metformin 500 mg p.o. daily at home and also insulin at home. Started on insulin sliding scale and metformin is on hold during this hospital stay latest blood sugar is 130 and hemoglobin A1c 7.8. Diet ,exercise, weight loss compliant with the medications was discussed with the patient. Dietary consult was requested. (6) Smoker Is this a current diagnosis for this admission?: Yes Plan: 06/06/2018 patient has history of chronic smoking I am going to place her on nicotine patch 21 mg daily. Smoking counseling was provided more than 10 minutes patient was strongly advised to quit smoking. 06/07/2018-patient has history of chronic smoking she was placed on nicotine patch 21 mg daily. Again smoking counseling was provided today. (7) Heartburn Is this a current diagnosis for this admission?: Yes Plan: 06/06/2018 patient is given the history of heartburn secondary to GERD. She was started on famotidine 20 mg p.o. twice a day. Chest pain may be secondary to heartburn. 06/07/2018-patient has history of heartburn probably secondary to GERD. She is on famotidine 20 mg p.o. twice daily no complaints today. - Time Time Spent with patient: 15-24 minutes Smoking Cessation Education: over 10 minutes Medications reviewed and adjusted accordingly: Yes Anticipated discharge: Home
[2018-06-07 11:47] LABS: CREATINE KINASE MB 1.35 ng/mL (<4.55); TROPONIN I 0.373 ng/mL
[2018-06-07 11:50] LABS: APPEARANCE,URINE SLIGHTLY-CLOUDY; BILIRUBIN,URINE NEGATIVE (NEGATIVE); COLOR,URINE YELLOW; GLUCOSE, URINE NEGATIVE (NEGATIVE); KETONES,URINE NEGATIVE (NEGATIVE); LEUKOCYTE ESTERASE,URINE NEGATIVE (NEGATIVE); NITRITE,URINE NEGATIVE (NEGATIVE); PROTEIN,URINE NEGATIVE (NEGATIVE); URINE SPECIFIC GRAVITY 1.014; UROBILINOGEN,URINE NEGATIVE mg/dL (<2.0)
--- NOTE | 2018-06-07 13:45 | Physician Advisory Note ---
Physician Advisor ProgressNote .: Pursuant to the plan for Rolando Black, I have reviewed the medical record for this patient. Physician Advisor Statement: Nice documentation of type CHF. Per recent review of [employer], AMI dx is appropriate when there is typical trop I rise & fall + either (A) Acute sx, or (B) Acute EKG changes, or (C) New wall mostion abnormality; Unstable angina dx is appropriate when there are sx, but no trop I change of significance, +/- EKG changes. Please consider documenting, if you agree: 1. "Acute CP, suspect due to " [acute NSTEMI likely involving __ wall & __ coronary artery? unstable angina? acute ischemic heart dz? cocaine without HI/angina/ischemic heart dz? ....?] STatus: Medicaid pt, needing cath after Alo are sufficiently decreased & last Lovenox dose is not fully active. Appropriately changed to Inpt status. CK
[2018-06-07 18:47] LABS: CREATINE KINASE MB 0.64 ng/mL (<4.55); TROPONIN I 0.344 ng/mL
[2018-06-07] MEDS: ATORVASTATIN CALCIUM 20 MG TABLET PO SCH (21:35)
[2018-06-07] MEDS: INSULIN REG, HUMAN 100 UNIT/ML 3 ML VIAL (PYX) SUBCUT PRN (21:35)
--- NOTE | 2018-06-07 22:38 | Progress Note ---
Provider Note Provider Note: CARDIOLOGY PROGRESS NOTE by Dr. Marylin Goetz on 05/31/2018. SUBJECTIVE: The patient has no further chest pain. There is the troponins are trending down. There is no shortness of breath. There is no PND orthopnea. There is no palpitations. There is no arrhythmias seen on the monitor. After discussions done [see below] the patient is consented for cardiac catheterization for definitive delineation of her coronary anatomy. There is no TIA CVA symptoms. \ PHYSICAL EXAMINATION: The patient is well-built and well-nourished. In no acute distress. She is well-groomed. Selected Entries 06/07/18 06/07/18 11:16 19:14 Temperature 97.6 F 97.7 F Temperature Oral Oral Source Pulse Rate 51 L 68 Respiratory 18 16 Rate Blood Pressure 154/82 H 154/71 H Blood Pressure 106 98 Mean BP Location Left Arm Left Arm BP Position Supine Supine O2 Sat by Pulse 100 98 Oximetry Oxygen Delivery Room Air Room Air Method HEAD: Is atraumatic normocephalic. EYES: Pupils are equal round regular react to light accommodation. Extraocular movements are normal. There is no conjunc tival pallor. There is no scleral icterus. ENT: Is negative. NECK: Is supple. There is no JVD. Carotids are equal there is no bruit. There is no lymphadenopathy. There is no goiter. There is no accessory muscles of respiration in use. LUNGS: There is diminished air entry and prolonged expiration, without any rhonchi rales or wheezing. On percussion there is hyperresonance. There is no chest wall tenderness on palpation. HEART: S1-S2 is heard there is no S3 gallop. There is no S4 gallop there is systolic murmur left sternal border and the apex without radiation. There is no rub. ABDOMEN: Is soft. Nontender. There is no paraspinal megaly. Bowel sounds are well heard. There is no tender areas masses. Extremities: Femorals are well felt. There is no femoral bruits. Leg pulses well felt. There is no pedal edema. There is no DVT or cellulitis. There is no calf tenderness. [employer] SALES [employer]ESSION[employer]: The patient is conscious awake alert oriented x3 with no focal deficits. PSYCH: The patie nt's judgment and insight are intact her affect is normal. 06/06/18 06/06/1819 11:37 22:23 04:08 WBC RBC Hgb Hct MCV MCH MCHC RDW Plt Count PT INR Sodium 141.8 Potassium 4.2 Chloride 103 Carbon Dioxide 32 H BUN 18 Creatinine 0.68 Est GFR ( Amer) > 60 Glucose 140 H POC Glucose Calcium 9.0 Magnesium 2.0 Total Bilirubin 0.5 Direct Bilirubin 0.2 Neonat Total Bilirubin Not Reportable Neonat Direct Bilirubin Not Reportable Neonat Indirect Bili Not Reportable AST 14 ALT 14 Alkaline Phosphatase 73 Creatine Kinase 52 CK-MB (CK-2) 2.72 Troponin I 0.765 NT-Pro-B Natriuret Pep Total Protein 6.2 L Albumin 3.5 Triglycerides 104 Cholesterol 181.39 VLDL Cholesterol 21.0 HDL Cholesterol 47 TSH Urine Cocaine Screen UNCONFIRMED POSITIVE 06/07/18 06/07/18 06/07/18 04:08 04:08 04:08 WBC 8.2 RBC 4.07 Hgb 12.5 Hct 37.7 MCV 93 MCH 30.7 MCHC 33.1 RDW 13.6 Plt Count 345 PT 12.4 INR 0.88 Sodium Potassium Chloride Carbon Dioxide BUN Creatinine Est GFR ( Amer) Glucose POC Glucose Calcium Magnesium Total Bilirubin Direct Bilirubin Neonat Total Bilirubin Neonat Direct Bilirubin Neonat Indirect Bili AST ALT Alkaline Phosphatase Creatine Kinase CK-MB (CK-2) 1.65 Troponin I 0.563 NT-Pro-B Natriuret Pep 1010 H Total Protein Albumin Triglycerides Cholesterol VLDL Cholesterol HDL Cholesterol TSH Urine Cocaine Screen 06/07/18 06/07/18 06/07/18 04:08 11:04 11:17 WBC RBC Hgb Hct MCV MCH MCHC RDW Plt Count PT INR Sodium Potassium Chloride Carbon Dioxide BUN Creatinine Est GFR ( Amer) Glucose POC Glucose 177 H Calcium Magnesium Total Bilirubin Direct Bilirubin Neonat Total Bilirubin Neonat Direct Bilirubin Neonat Indirect Bili AST ALT Alkaline Phosphatase Creatine Kinase CK-MB (CK-2) 1.35 Troponin I 0.373 NT-Pro-B Natriuret Pep Total Protein Albumin Triglycerides Cholesterol VLDL Cholesterol HDL Cholesterol TSH 2.14 Urine Cocaine Screen 06/07/18 06/07/18 17:43 17:43 WBC RBC Hgb Hct MCV MCH MCHC RDW Plt Count PT INR Sodium Potassium Chloride Carbon Dioxide BUN Creatinine Est GFR ( Amer) Glucose POC Glucose Calcium Magnesium Total Bilirubin Direct Bilirubin Neonat Total Bilirubin Neonat Direct Bilirubin Neonat Indirect Bili AST ALT Alkaline Phosphatase Creatine Kinase 43 CK-MB (CK-2) 0.64 Troponin I 0.344 NT-Pro-B Natriuret Pep Total Protein Albumin Triglycerides Cholesterol VLDL Cholesterol HDL Cholesterol TSH Urine Cocaine Screen IMPRESSION/RECOMMENDATION: 1. Non-ST elevation SD: The troponins are trending down. The patient is chest pain-free this is most likely secondary to spasm, but with the patient's multiple risk factors cannot exclude underlying coronary artery disease. Note the patient the patient in the past states that she has a negative stress test. She in 2016 had a cardiac MRI, which was consistent with old myocardial infarction. At that time she was treated medically. The patient since then has had admissions for non-ST elevation SD following chest pain. Even now the patient states that on the days that she does not take cocaine she does have with exertion on occasions chest heaviness which turns into heartburn. Hence I agree with the recommendation by Dr. Hollins, the patient for cardiac catheter ization to define coronary anatomy. This has been discussed with the patient. The risks benefits and complications of conscious sedation and cardiac catheterization have been discussed in detail. We showed the patient cardiac cath teaching video. The patient is agreeable for cardiac catheterization, and gives fully informed consent. This has been discussed with Dr. Raheem Mendoza, who is agreeable. Would recommend not to use a beta-gregorio for at least a few days, would treat the patient's hypertension with the amlodipine. If heart rate is a problem would recommend starting the patient on clonidine. 2. 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 3. Hypertension: Would avoid beta-blockers. Recommendations as above. 4. COPD by exam. 5. Cardia myopathy with chronic systolic heart failure. Patient's LV ejection fraction is 50% by recent echo. 6. Hyperlipidemia: Continue statins 7. Cocaine abuse: I have discussed the ill effects of cocaine the fact that cocaine can lead to coronary artery spasm and myocardial infarction cardia myopathy has been discussed with the patient detail. 8. Tobacco abuse disorder: Tobacco cessation counseling given. Medications reviewed. Management plan discussed with the attending physician on the case. As mentioned earlier case was discussed with Dr. Raheem Mendoza. Patient set up for cardiac catheterization in the morning. Medical decision making is of high complexity. 40 minutes spent on this patient more than 50% of time spent in direct patient care. The patient is a full code. The patient's daughter is her surrogate healthcare decision maker
[2018-06-08 00:24] LABS: CREATINE KINASE MB 0.51 ng/mL (<4.55); TROPONIN I 0.358 ng/mL
[2018-06-08] MEDS ORDERED: RADIAL COCKTAIL SYRINGE 10 ML IV PRN ×4 (05:00)
[2018-06-08 06:34] LABS: INTERNATIONAL RATION (INR) 0.83; PROTHROMBIN TIME 11.8 SEC (11.4-15.4)
[2018-06-08] MEDS: SUCRALFATE 1 GM TABLET PO SCH (08:22)
[2018-06-08] MEDS: FUROSEMIDE 20 MG TABLET PO SCH ×2 (08:22→08:23)
[2018-06-08] MEDS ORDERED: HEPARIN SODIUM,PORCINE/NS/PF 2,000 UNIT/1,000 ML RTUINJ IV ONE (09:29)
[2018-06-08] MEDS ORDERED: LIDOCAINE 1% INJ-PF (10 MG/ML) 30 ML SDV ONE (09:29)
[2018-06-08] MEDS: DOCUSATE SODIUM 100 MG CAPSULE PO SCH ×2 (09:44→17:38)
[2018-06-08] MEDS: CITALOPRAM HYDROBROMIDE 20 MG TABLET PO SCH (09:44)
[2018-06-08] MEDS: ASPIRIN 81 MG TABLET, ENT COATED PO SCH (09:45)
[2018-06-08] MEDS: LOSARTAN POTASSIUM 50 MG TABLET PO SCH (09:45)
[2018-06-08] MEDS: FAMOTIDINE INJ/PF 20 MG/2 ML SDV IV SCH (09:45)
[2018-06-08] MEDS: AMLODIPINE BESYLATE 10 MG TABLET PO SCH (09:45)
[2018-06-08] MEDS ORDERED: DIAZEPAM 5 MG TABLET ONE (09:47)
[2018-06-08] MEDS ORDERED: DIPHENHYDRAMINE HCL 25 MG CAPSULE ONE (09:47)
[2018-06-08] MEDS ORDERED: MIDAZOLAM 2 MG/2 ML INJ ONE (10:00)
[2018-06-08] MEDS ORDERED: FENTANYL CITRATE INJ/PF 100 MCG/2 ML AMPUL ONE ×2 (10:00→11:10)
[2018-06-08] MEDS ORDERED: HEPARIN SOD (PORCINE) 1,000 UNIT/ML 10 ML VIAL ONE (10:00)
[2018-06-08] MEDS ORDERED: DIPHENHYDRAMINE HCL 50 MG/ML VIAL ONE (10:30)
[2018-06-08] MEDS ORDERED: NITROGLYCERIN/D5W 50 MG/250 ML RTUINJ IV ONE (11:03)
[2018-06-08] MEDS ORDERED: INSULIN REG, HUMAN 100 UNIT/ML 3 ML VIAL (PYX) SUBCUT SCH (12:00)
--- NOTE | 2018-06-08 12:06 | Operative Report ---
Operative Report DATE OF SURGERY: 06/08/18 PREOPERATIVE DIAGNOSIS: Angina, chest pain POSTOPERATIVE DIAGNOSIS: Multivessel coronary disease ischemic cardiomyopathy OPERATION: Radial approach left heart catheterization coronary angiography and left ventriculography SURGEON: SHERITA BENITO ANESTHESIA: Moderate Sedation INTRAOPERATIVE FINDINGS: After informed consent was obtained the patient was brought to the cardiac catheterization lab the right wrist was prepared in usual sterile great manner and anesthetized with 1% lidocaine solution hemogram and access was gained without difficulty using micropuncture technique. The patient was anticoagulated with 4000 units of heparin and an intra-arterial cocktail of verapamil and lidocaine was administered. The patient had significant radial ar gagan spasm which was managed carefully during the procedure with moderate sedation and IV nitroglycerin drip was administered. Conscious sedation was initiated monitored and maintained during the procedure with a start time 1039 and a completion time of 1131 for conscious sedation time of 52 minutes. A total of 100 mcg of fentanyl and 1 mg of Versed were administered for conscious sedation. Hemodynamic data: Left ventricular pressure at the beginning the case is 153/19 post ventriculography LV pressure is 157/20 3 aortic pressure on pullback is 159/63 there is no gradient across the aortic valve. Left ventriculography: Fluoroscopy demonstrates heavy calcification of all 3 of the false pass vessels including the left main LAD circumflex and right coronary artery there is mild anterior hypokinesis mitral regurgitation is not seen the ascending aortic root is normal in diameter global left ventricular function appears to be well preserved. Coronary angiography: The right coronary artery is heavily calcified in the proximal right coronary artery has a 30-40% stenosis there is a 90% stenosis in the proximal third between the right atrial and first right ventricular branch there is also a 50-60% stenosis in the midportion of the RCA with a high-grade stenosis after the second right ventricular marginal branch the right coronary artery is a dominant vessel. Left main: The left main has an eccentric stenosis that appears in the 50-80% range in certain views. LAD: The LAD is a very large transapical vessel the first major diagonal branch of the LAD also has a 75-85% stenosis. Circumflex: The circumflex is also diffusely diseased there is a 60% ostial stenosis there is a 40-50% stenosis between the first and second obtuse marginal branch the second obtuse marginal branch at its origin has a 70% stenosis in. Impression: 1. Preserved left ventricular function. 2. Eccentric 60-70% distal left main stenosis. 3. Severe multivessel coronary disease involving the proximal LAD, first LAD diagonal, second obtuse marginal, and right coronary artery PROCEDURE: Recommendations: Cardiothoracic bypass surgery
--- NOTE | 2018-06-08 12:45 | PDOC TRANSFER SUMMARY ---
General Admission Date/PCP: 06/07/18 10:40 Resuscitation Status: Full Code - Transfer Diagnosis (1) Chest pain Is this a current diagnosis for this admission?: Yes Diagnosis Summary: 06/06/2018-patient came in with chest pains. Probably secondary to cocaine use. Cocaine may be causing the coronary arterial spasms. Plan is to put her in telemetry so far the EKG her troponins are normal. To do cardiac enzymes x3, echocardiogram, cardiology consult was requested. Plan is not to give beta- blockers because of the cocaine use. Aspirin was started, placed on Lovenox 40 mg subcu daily. Patient is already on Crestor 10 mg p.o. nightly and lipid panel was requested for tomorrow morning. Patient was admitted under observation. 06/07/2018-patient came in with chest pain. Acute ND core measures were im plemented. Initial troponin is 0.5 trended up to 0.863 and latest troponin is 0.56. Discussed the care with r d internship yesterday he is recommended cardiac cath. Patient agreed for the cardiac catheter tomorrow. Be going to give her Lovenox 75 mg subcu at 6 PM today instead of 10 PM for cardiac catheter tomorrow INR is 0.88. Patient status is going to be changed from observation to inpatient. Chest pain most likely due to cocaine use causing coronary artery spasm. [id number]-ohzh-old female with history of coronary artery disease came to the emergency room with complaints of chest pain. Initial troponin is 0.5 trended up to 2.863 and we continue to do the follow-up troponins the last one was 0.56. Cardiology consult was done the recommendation is patient benefits from the cardiac cath. Acute ND core measures were implemented. She was started on Lovenox therapeutic dose. Patient went for the cardiac cath this morning. Dr. Raheem Mendoza call me if both abnormal findings noticed during the cardiac cath. The findings on the cardiac cath are Left ventriculography: Fluoroscopy demonstrates heavy calcification of all 3 of the seminole vessels including the left main LAD circumflex and right coronary artery there is mild anterior hypokinesis mitral regurgitation is not seen the ascending aortic root is normal in diameter global left ventricular function appears to be well preserved. Coronary angiography: The right coronary artery is heavily calcified in the proximal right coronary artery has a 30-40% stenosis there is a 90% stenosis in the proximal third between the right atrial and first right ventricular branch there is also a 50-60% stenosis in the midportion of the RCA with a high-grade stenosis after the second right ventricular marginal branch the right coronary artery is a dominant vessel. Left main: The left main has an eccentric stenosis that appears in the 50-80% range in certain views. LAD: The LAD is a very large transapical vessel the first major diagonal branch of the LAD also has a 75-85% stenosis. Circumflex: The circumflex is also diffusely diseased there is a 60% ostial stenosis there is a 40-50% stenosis between the first and second obtuse marginal branch the second obtuse marginal branch at its origin has a 70% stenosis in. Impression: 1. Preserved left ventricular function. 2. Eccentric 60-70% distal left main stenosis. 3. Severe multivessel coronary disease involving the proximal LAD, first LAD diagonal, second obtuse marginal, and right coronary artery Recommendation is cardiothoracic bypass surgery . Be going to make arrangements for the patient was transferred to [facility] for the procedure. Chest pain is most likely secondary to ischemic heart disease. (2) Cocaine use Is this a current diagnosis for this admission?: Yes Diagnosis Summary: 06/06/2018 patient has history of chronic use of cocaine. she used the cocaine prior to the ER visit. Counseling was provided for more than 10 minutes to quit cocaine use. 06/07/2018-patient has history of cocaine use. She admitted to take cocaine before her ER visit. Patient was strongly advised to quit using cocaine. 06/07/2018 patient has history of chronic use of cocaine. As per her she was in the hospital a few times before for the chest pains. Never had a cardiac cath b efore but she did tell me she had a stress test in [facility]. She was strongly advised to stop using cocaine. (3) CHF (congestive heart failure) Is this a current diagnosis for this admission?: Yes Diagnosis Summary: 06/06/2018 patient has history of congestive heart failure probably secondary to drug use. She is taking Lasix at home. On examination chest was clear no pedal edema. Patient is not in fluid overload. BNP was requested. We do not have any recent echocardiogram report requested for echocardiogram today. Patient is on Lasix 20 mg daily at home plan is to continue the medication during the hospi yasmine stay. 06/07/2018-patient has history of congestive heart failure. BNP is 1000. Echocardiogram was requested. Patient is presently on Lasix 20 mg p.o. daily plan to continue the present management. In my opinion patient has a chronic congestive heart failure with EF of around 50%. she has a systolic heart failure. 06/08/2018-echocardiogram shows EF of around 50%. She has chronic systolic heart failure. Initial BNP is around 1000. No evidence of any fluid overload on examination. (4) Hypertension Is this a current diagnosis for this admission?: Yes Diagnosis Summary: 06/06/2018 patient is given the history of hypertension. At home she is on amlodipine 10 mg p.o. daily, Coreg 25 mg p.o. twice a day, furosemide 20 mg daily. Plan is to hold Coreg because of the history of cocaine use. We will check the blood pressures every shift. 06/07/2018-patient's blood pressure today is 150/71. Asymptomatic. Presently on amlodipine 10 mg p.o. daily furosemide 20 mg daily. Coreg was on hold for now and the patient is going for cardiac catheter tomorrow. 06/08/2018-patient's blood pressure today is 141/65 with heart rate of 55. Patient is on amlodipine 10 mg daily, furosemide 20 mg p.o. daily. She is also on Coreg at home. Coreg was on hold because of the history of cocaine use. (5) Diabetes 1.5, managed as type 2 Is this a current diagnosis for this admission?: Yes Diagnosis Summary: 06/06/2018-patient has a history of diabetes mellitus type 2 she is to take metformin at home that is 400 mg daily and she is also uses insulin at home p atient does not know the name of the insulin she is taking plan is to start the patient on insulin sliding scale before meals and at bedtime to hold metformin and to check hemoglobin A1c during this hospital stay. 06/07/2018-patient has history of type 2 diabetes mellitus she is taking metformin 500 mg p.o. daily at home and also insulin at home. Started on insulin sliding scale and metformin is on hold during this hospital stay latest blood sugar is 130 and hemoglobin A1c 7.8. Diet ,exercise, weight loss compliant with the medications was discussed with the patient. Dietary consult was requested. 06/08/2018 patient has history of type 2 diabetes mellitus she is on insulin, metformin at home. Presently she is on insulin sliding scale in the hospital. Hemoglobin A1c was 7.8. Latest blood sugar is 150. (6) Smoker Is this a current diagnosis for this admission?: Yes Diagnosis Summary: 06/08/2018 patient is a chronic smoker smoking counseling was provided for more than 10 minutes. She was placed on nicotine patch during the hospital stay. (7) Heartburn Is this a current diagnosis for this admission?: Yes Diagnosis Summary: 06/06/2018 patient is given the history of heartburn secondary to GERD. She was started on famotidine 20 mg p.o. twice a day. Chest pain may be secondary to heartburn. 06/07/2018-patient has history of heartburn probably secondary to GERD. She is on famotidine 20 mg p.o. twice daily no complaints today. 06/08/2018 at the time of admission patient is complaining of heartburn probably secondary to GERD. She was started on famotidine 20 mg p.o. twice daily and no complaints during the hospital stay. - Transfer Medications Home Medications: Amlodipine Besylate [Norvasc 10 mg Tablet] 10 mg PO DAILY 06/06/18 Carvedilol [Coreg 25 mg Tablet] 25 mg PO Q12 06/06/18 Citalopram Hydrobromide [Citalopram HBr] 20 mg PO DAILY 06/06/18 Furosemide [Lasix 20 mg Tablet] 20 mg PO QAM 06/06/18 Insulin Glargine,Hum.rec.anlog [Lantus Insulin Inj 300 Unit/3 ml Pen] 1 unit SUBCUT QHS 06/06/18 Insulin Lispro [Humalog Insulin 100 Unit/1 ml 3 ml Vial] 0 unit SUBCUT .SLD SCALE 06/06/18 Metformin HCl [Metformin HCl ER] 1,000 mg PO DAILY 06/06/18 Pravastatin Sodium [Pravachol] 10 mg PO QHS 06/06/18 Transfer Medications: Current Medications Acetaminophen (Tylenol 325 Mg Tablet) 650 mg PO Q4HP PRN PRN Reason: FEVER >101 Stop: 07/06/18 08:45 Albuterol (Ventolin 0.083% Neb 2.5 Mg/3 Ml Ampul) 2.5 mg NEB [id number] PRN PRN Reason: SHORTNESS OF BREATH Stop: 07/06/18 08:45 Amlodipine Besylate (Norvasc 10 Mg Tablet) 10 mg PO DAILY [facility] Stop: 07/07/18 09:59 Last Admin: 06/08/18 09:45 Dose: Not Given Documented by: Aspirin (Ecotrin 81 Mg Ec Tablet) 81 mg PO DAILY [facility] Stop: 07/06/18 09:59 Last Admin: 06/08/18 09:45 Dose: Not Given Documented by: Atorvastatin Calcium (Lipitor 20 Mg Tablet) 20 mg PO QHS [facility] Stop: 07/06/18 21:59 Last Admin: 06/07/18 21:35 Dose: 20 mg Documented by: Citalopram Hydrobromide (Celexa 20 Mg Tablet) 20 mg PO DAILY [facility] Stop: 07/06/18 16:59 Last Admin: 06/08/18 09:44 Dose: Not Given Documented by: Dextrose (Dextrose Inj 50% Syringe (25 Gm/50 Ml)) 25 gm IV PRN PRN; Protocol PRN Reason: PER PROTOCOL Stop: 07/06/18 09:04 Dextrose (Dextrose Inj 50% Syringe (25 Gm/50 Ml)) 12.5 gm IV PRN PRN; Protocol PRN Reason: FOR BG 50-69 IN ALERT PATIENT Stop: 07/06/18 09:04 Diazepam (Valium 5 Mg Tablet) 5 mg PO .ONCALL TO VICE CHANCELLOR PRN PRN Reason: THIS MED IS NOT "PRN" Stop: 06/09/18 23:59 Diphenhydramine HCl (Benadryl 50 Mg Capsule) 50 mg PO .ONCALL TO VICE CHANCELLOR PRN PRN Reason: THIS MED IS NOT "PRN" Stop: 06/09/18 23:59 Docusate Sodium (Colace 100 Mg Capsule) 100 mg PO BID [facility] Stop: 07/06/18 09:59 Last Admin: 06/08/18 09:44 Dose: Not Given Documented by: Famotidine (Pepcid Inj/Pf 20 Mg/2 Ml Sdv) 20 mg IV Q12 [facility] Stop: 07/06/18 09:59 Last Admin: 06/08/18 09:45 Dose: Not Given Documented by: Furosemide (Lasix 20 Mg Tablet) 40 mg PO QAM [facility] Stop: 07/07/18 07:59 Last Admin: 06/08/18 08:22 Dose: Not Given Documented by: Furosemide (Lasix 20 Mg Tablet) 20 mg PO QAM [facility] Stop: 07/07/18 07:59 Last Admin: 06/08/18 08:23 Dose: Not Given Documented by: Glucagon (Glucagen Inj 1 Mg Vial) 1 mg IM PRN PRN; Protocol PRN Reason: Evaluate for BG < 70 Stop: 07/06/18 09:04 Glucose (Glutose 40% Gel 15 Gm Tube) 15 gm PO PRN PRN; Protocol PRN Reason: FOR BG 50-69 IN ALERT PATIENT Stop: 07/06/18 09:04 Glucose (Glutose 40% Gel 15 Gm Tube) 30 gm PO PRN PRN; Protocol PRN Reason: FOR BG < 50 IN ALERT PATIENT Stop: 07/06/18 09:04 Verapamil HCl 5 mg/ Lidocaine HCl 2 ml/ Sodium Chloride 6 ml / Syringe 10 mls @ 0 mls/hr IV .CATHLAB PRN PRN Reason: THIS MED IS NOT "PRN" Stop: 06/08/18 23:59 Sodium Chloride (Nacl 0.9% 1000 Ml Iv Soln) 1,000 mls @ 100 mls/hr IV MORGAN NUOUS PRN PRN Reason: THIS MED IS NOT "PRN" Stop: 06/09/18 23:59 Last Admin: 06/08/18 05:55 Dose: 100 mls/hr Documented by: Insulin Human Regular (Humulin R (Pyxis) Insulin 100 Unit/Ml 3ml) 0 - 12 unit SUBCUT Q6 [facility]; Protocol Stop: 07/06/18 11:59 Levalbuterol HCl (Xopenex Neb 0.63 Mg/3 Ml Ampul) 0.63 mg NEB RTQ4HP PRN PRN Reason: SHORTNESS OF BREATH Stop: 07/06/18 08:45 Losartan Potassium (Cozaar 50 Mg Tablet) 100 mg PO DAILY [facility] Stop: 07/06/18 09:59 Last Admin: 06/08/18 09:45 Dose: Not Given Documented by: Ondansetron HCl (Zofran Inj/Pf 4 Mg/2 Ml Sdv) 4 mg IV Q8HP PRN PRN Reason: FOR NAUSEA/VOMITING Stop: 07/06/18 08:45 Patient Own Medication (Pravastatin Sodium [Pravachol]) 10 mg PO .QHS [facility] Stop: 07/06/18 21:59 Sucralfate (Carafate 1 Gm Tablet) 1 gm PO ACHS MELINDA Stop: 07/06/18 10:59 Last Admin: 06/08/18 08:22 Dose: Not Given Documented by: - Allergies Allergies/Adverse Reactions: No Known Allergies Allergy (Verified 09/17/16 15:46) - Diet/Activity Discharge Diet: Diabetic Discharge Activity: Bedrest Physical Exam Vital Signs: Temp Pulse Resp BP Pulse Ox 97.8 F 57 L 19 144/86 H 98 06/08/18 07:36 06/08/18 12:00 06/08/18 12:00 06/08/18 12:00 06/08/18 12:00 Intake & Output 06/07/18 06/08/18 06/09/18 06:59 06:59 06:59 Intake Total 280 1075 Balance 280 1075 Weight 71.3 kg 71.1 kg General appearance: PRESENT: no acute distress Head exam: PRESENT: atraumatic Eye exam: PRESENT: PERRLA Mouth exam: PRESENT: moist, tongue midline Neck exam: ABSENT: carotid bruit, JVD, lymphadenopathy, thyromegaly Respiratory exam: PRESENT: decreased breath sounds Cardiovascular exam: PRESENT: RRR. ABSENT: diastolic murmur, rubs, systolic murmur GI/Abdominal exam: PRESENT: normal bowel sounds, soft. ABSENT: distended, guarding, mass, organolmegaly, rebound, tenderness Extremities exam: PRESENT: full ROM. ABSENT: calf tenderness, clubbing, pedal edema Neurological exam: PRESENT: alert, awake, oriented to person, oriented to place, oriented to time, oriented to situation, CN II-XII grossly intact. ABSENT: motor sensory deficit Psychiatric exam: PRESENT: appropriate affect, normal mood. ABSENT: homicidal ideation, suicidal ideation Results Laboratory Results: 06/07/18 04:08 06/07/18 04:08 06/06/18 06/06/18 06/06/18 04:02 04:02 05:10 Creatine Kinase Cancelled 36 CK-MB (CK-2) 0.38 Troponin I 0.016 NT-Pro-B Natriuret Pep 06/06/18 06/06/18 06/06/18 06:50 10:33 10:33 Creatine Kinase 62 CK-MB (CK-2) 3.63 Troponin I 0.083 0.530 NT-Pro-B Natriuret Pep 06/06/18 06/06/18 06/06/18 16:20 16:20 22:23 Creatine Kinase 69 49 CK-MB (CK-2) 3.42 Troponin I 0.832 NT-Pro-B Natriuret Pep 06/06/18 06/07/18 06/07/18 22:23 04:08 04:08 Creatine Kinase 52 CK-MB (CK-2) 2.72 1.65 Troponin I 0.765 0.563 NT-Pro-B Natriuret Pep 1010 H 06/07/18 06/07/18 06/07/18 11:04 11:04 17:43 Creatine Kinase 54 43 CK-MB (CK-2) 1.35 Troponin I 0.373 NT-Pro-B Natriuret Pep 06/07/18 06/07/18 06/07/18 17:43 23:50 23:50 Creatine Kinase 40 CK-MB (CK-2) 0.64 0.51 Troponin I 0.344 0.358 NT-Pro-B Natriuret Pep Impressions: Chest X-Ray 06/06/18 03:52 IMPRESSION: Cardiomegaly. Lungs are clear copyright 2011 [employer]- All Rights Reserved Plan Discharge Plan: Plan is to transfer the patient to [facility] for cardiothoracic surgery. Time Spent: Greater than 30 Minutes
[2018-06-08 23:40] VITALS: BP 156/86
[2018-06-09] MEDS ORDERED: NORMAL SALINE 1000 ML 1,000 ML IV PRN (05:00)
[2018-06-09] MEDS ORDERED: DIPHENHYDRAMINE HCL 50 MG CAPSULE PO PRN (05:00)
[2018-06-09] MEDS ORDERED: DIAZEPAM 5 MG TABLET PO PRN (05:00)
== END 2018-06-08 21:30 | disposition short-term general hospital (02) | DRG 287 ==
LOC: ER 03:49 → EH 10:17 → 3S 17:01 → OBSVTOIN 06-07 10:40
PROVIDERS: ADMIT Internal Medicine; ATTEND Internal Medicine
PROC: 4A023N7 Measurement of Cardiac Sampling and Pressure, Left Heart, Percutaneous Approach (ICD-10-PCS; principal; 2018-06-08)
PROC: B2151ZZ Fluoroscopy of Left Heart using Low Osmolar Contrast (ICD-10-PCS; 2018-06-08)
PROC: B2111ZZ Fluoroscopy of Multiple Coronary Arteries using Low Osmolar Contrast (ICD-10-PCS; 2018-06-08)
DX: I25.10 Atherosclerotic heart disease of native coronary artery without angina pectoris (principal); I50.22 Chronic systolic (congestive) heart failure; I11.0 Hypertensive heart disease with heart failure; F14.10 Cocaine abuse, uncomplicated; E78.5 Hyperlipidemia, unspecified; E11.9 Type 2 diabetes mellitus without complications; F17.210 Nicotine dependence, cigarettes, uncomplicated; I42.9 Cardiomyopathy, unspecified; F32.9 Major depressive disorder, single episode, unspecified; R74.8 Abnormal levels of other serum enzymes; G47.33 Obstructive sleep apnea (adult) (pediatric); K21.9 Gastro-esophageal reflux disease without esophagitis; R12 Heartburn; Z79.4 Long term (current) use of insulin; Z79.82 Long term (current) use of aspirin; Z79.899 Other long term (current) drug therapy; Z82.49 Family history of ischemic heart disease and other diseases of the circulatory system; Z83.3 Family history of diabetes mellitus; Z86.73 Personal history of transient ischemic attack (TIA), and cerebral infarction without residual deficits
CPT/HCPCS: 36415; 71045; 80053; 80061; 80307; 81001; 82550; 82553; 82962; 83036; 83735; 83880; 84443; 84484; 85025; 85027; 85610; 93005; 93010; 93306; 93458; 96372; 96374; 99285; G0378; J1200; J1644; J1650; J1815; J1885; J2250; J3010; J3490; J7030; S0028

== ENCOUNTER 2019-02-15 19:52 | Observation (INO) | payer MEDICAID ==
--- NOTE | 2019-02-15 20:18 | ER Document Report ---
ED Medical Screen (RME) - General Chief Complaint: Chest Pressure Stated Complaint: CHEST DISCOMFORT/SHORTNESS OF BREATH Time Seen by Provider: 02/15/19 20:02 Notes: Patient is a 63-year-old female with history of hypertension, CHF, cardiomyopa thy, sleep apnea, hyperlipidemia, and stroke who presents emergency department with shortness of breath. She also states that she has some chest heaviness. She has had this for the past month. She also stopped taking her medications about a month ago. Exam: Crackles noted to the bases of lungs. I have greeted and performed a rapid initial assessment of this patient. A comprehensive ED assessment and evaluation of the patient, analysis of test results and completion of medical decision making process will be conducted by an additional ED providers. TRAVEL OUTSIDE OF THE [place] IN LAST 30 DAYS: No - Related Data Allergies/Adverse Reactions: No Known Allergies Allergy (Verified 09/17/16 15:46) Past Medical History - Social History Chew tobacco use (# tins/day): No Frequency of alcohol use: None Drug Abuse: None - Past Medical History Cardiac Medical History: Reports: Hx Congestive Heart Failure - Chronic systolic last EF was 45%, Hx Coronary Artery Disease, Hx Hypercholesterolemia, Hx Hypertension Denies: Hx DVT, Hx Heart Attack, Hx Pulmonary Embolism Pulmonary Medical History: Reports: Hx Asthma - medicated prn/no hospitaliza tions, Hx Bronchitis, Hx COPD Denies: Hx Pneumonia Neurological Medical History: Reports: Hx Cerebrovascular Accident - several years ago/no residual effects. Denies: Hx Seizures Endocrine Medical History: Reports: Hx Diabetes Mellitus Type 2. Denies: Hx Hyperthyroidism, Hx Hypothyroidism Renal/ Medical History: Denies: Hx Peritoneal Dialysis GI Medical History: Denies: Hx Cirrhosis, Hx Gastroesophageal Reflux Disease, Hx Hepatitis, Hx Hiatal Hernia, Hx Ulcer Musculoskeltal Medical History: Denies Hx Arthritis Psychiatric Medical History: Reports: Hx Depression - denies suicidal/homicidal ideation Infectious Medical History: Denies: Hx Hepatitis Past Surgical History: Reports: Hx Section, Hx Hysterectomy, Hx Tubal Ligation. Denies: Hx Mastectomy, Hx Open Heart Surgery, Hx Pacemaker - Immunizations Hx Diphtheria, Pertussis, Tetanus Vaccination: No Physical Exam - Vital signs Vitals: Temp Pulse Resp BP 97.8 F 82 98 H 206/101 H 02/15/19 19:53 02/15/19 19:53 02/15/19 19:53 02/15/19 19:53 Course - Vital Signs Vital signs: Temp Pulse Resp BP Pulse Ox 97.8 F 82 98 H 206/101 H 02/15/19 19:53 02/15/19 19:53 02/15/19 19:53 02/15/19 19:53
[2019-02-15 20:51] LABS: ABSOLUTE EOSINOPHILS # (AUTO) 0.2 10^3/uL (0.0-0.6); ABSOLUTE LYMPHOCYTES (AUTO) 2.1 10^3/uL (0.5-4.7); ABSOLUTE MONOCYTES (AUTO) 0.6 10^3/uL (0.1-1.4); ABSOLUTE NEUT (AUTO) 5.9 10^3/uL (1.7-8.2); BASOPHILS % (AUTO) 0.5 % (0-2); EOSINOPHILS % (AUTO) 2.3 % (0-6); HEMATOCRIT 41.5 % (36.0-47.0); HEMOGLOBIN 13.5 g/dL (12.0-15.5); LYMPHOCYTES % (AUTO) 23.9 % (13-45); MEAN CORPUSCULAR HGB CONC 32.6 g/dL (32.0-36.0); MEAN CORPUSCULAR VOLUME 92 fl (80-97); MONOCYTES % (AUTO) 6.3 % (3-13); PLATELET COUNT 339 10^3/uL (150-450); RED BLOOD COUNT 4.51 10^6/uL (3.72-5.28); RED CELL DISTRIBUTION WIDTH 14.1 % (11.5-14.0); TOTAL CELLS COUNTED % (AUTO) 100 %; WHITE BLOOD COUNT 8.8 10^3/uL (4.0-10.5)
--- NOTE | 2019-02-15 20:51 | RADIOLOGY REPORT (SQ) ---
EXAM DESCRIPTION: XR CHEST 1 VIEW COMPLETED DATE/TME: 02/15/2019 20:17 CLINICAL HISTORY: 63 years, Female, shortness of breath Findings: The heart is moderately enlarged. Status post median sternotomy. No consolidation or pleural effusion. No pulmonary edema or pneumothorax. IMPRESSION: No acute disease.
--- NOTE | 2019-02-15 20:54 | ER Document Report ---
ED Cardiac - General Chief Complaint: Chest Pressure Stated Complaint: CHEST DISCOMFORT/SHORTNESS OF BREATH Time Seen by Provider: 02/15/19 20:54 Mode of Arrival: Ambulatory Information source: Patient Notes: HISTORY OF PRESENT ILLNESS: Patient is a 63-year-old female with a past medical history of multiple chronic conditions including coronary artery disease status post CABG who presents with sudden onset chest heaviness described as "a weight on my chest" associated with shortness of breath that began acutely one day ago while the patient was at rest. Patient reports she had identical symptoms before her last CABG 2 years ago. Location: Substernal chest Onset: Sudden one day ago Alleviation: None Provocation: Movement Quality: Heaviness, difficulty breathing Radiation: None Severity: Moderate at worst, currently resolved Timing: Intermittent History of CAD: Yes Associated symptoms: Reports shortness of breath and difficulty breathing, reports postural nocturnal dyspnea, denies swelling of the extremities REVIEW OF SYSTEMS: CONSTITUTIONAL : Denies fever or chills, no sweats. Denies recent illness. EENT: Denies eye, ear, throat, or mouth pain or symptoms. Denies nasal or sinus congestion. CARDIOVASCULAR: Positive for chest pain. Denies swelling of the legs. RESPIRATORY: Denies cough, cold, or chest congestion. Positive for shortness of breath and difficulty breathing. Denies wheezing. GASTROINTESTINAL: Denies abdominal pain. Denies nausea, vomiting, or diarrhea. Denies constipation. GENITOURINARY: Denies difficulty urinating, painful urination, burning, frequency, or blood in urine. MUSCULOSKELETAL: Denies neck or back pain or joint pain or swelling. SKIN: Denies rash or skin lesions. HEMATOLOGIC : Denies easy bruising or bleeding. LYMPHATIC: Denies swollen, enlarged glands. NEUROLOGICAL: Denies altered mental status or loss of consciousness. Denies headache. Denies weakness or paralysis or loss of use of either side. Denies problems with gait or speech. Denies sensory or motor loss. PSYCHIATRIC: Denies anxiety or stress or depression. All other systems reviewed and negative. PHYSICAL EXAMINATION: GENERAL: Well-appearing, well-nourished and in no acute distress. HEAD: Atraumatic, normocephalic. No scalp deformity, depression, or crepitance. EYES: Pupils are 3 mm and equal/round/reactive to light, extraocular movements intact, sclera anicteric, conjunctiva are normal. ENT: Nares patent bilaterally, oropharynx. Moist mucous membranes. No tonsil hypertrophy. NECK: Normal range of motion, supple without lymphadenopathy. LUNGS: Breath sounds present, equal, and clear to auscultation bilaterally. No wheezes, rales, or rhonchi. HEART: Regular rate and rhythm without murmurs, rubs, or gallops. 2+ peripheral pulses. Normal capillary refill. ABDOMEN: Soft, nontender, nondistended. Normoactive bowel sounds. No guarding, no rebound. No masses appreciated. BACK: Normal contour, no midline tenderness. Rectal exam deferred. GENITAL/PELVIC: Deferred. EXTREMITIES: Normal range of motion, no pitting or edema. No cyanosis. NEUROLOGICAL: No focal neurological deficits. Moves all extremities spontaneously and on command. PSYCH: Normal mood, normal affect. No suicidal thoughts/ideations. No homicidal thoughts/ideations. No hallucinations. SKIN: Warm, dry, normal turgor, no rashes or lesions noted. ASSESSMENT AND PLAN: This patient is a 63-year-old female who presents with chest pain or shortness of breath that began 1 day ago concerning for unstable angina. 1. Will obtain cardiac work-up and admit to the hospital. 2. Will give morphine as needed for pain control. TRAVEL OUTSIDE OF THE [place] IN LAST 30 DAYS: No - HPI Patient complains to provider of: Chest tightness, Shortness of breath Was the onset of pain: Sudden Is the pain a: New problem Chest pain location: Substernal Quality of pain: Heaviness Chest pain radiation location: None Severity now: Mild Severity at worst: Moderate Pain level currently: 1 Chest pain precipitating factors: At Rest Cardiac risk factors: Diabetes, Hypertension, Hx CHF, Hx [place] Positive cardiac history: Yes Associated symptoms: Shortness of breath Exacerbated by: Denies Relieved by: Nothing Similar symptoms previously: Yes Recently seen / treated by doctor: No - Related Data Allergies/Adverse Reactions: No Known Allergies Allergy (Verified 09/17/16 15:46) Past Medical History - General Information source: Patient - Social History Smoking Status: Current Every Day Smoker Chew tobacco use (# tins/day): No Frequency of alcohol use: None Drug Abuse: None Lives with: Alone Family History: CAD, CVA, DM Patient has suicidal ideation: No Patient has homicidal ideation: No - Past Medical History Cardiac Medical History: Reports: Hx Congestive Heart Failure - Chronic systolic last EF was 45%, Hx Coronary Artery Disease, Hx Hypercholesterolemia, Hx Hypertension Denies: Hx DVT, Hx Heart Attack, Hx Pulmonary Embolism Pulmonary Medical History: Reports: Hx Asthma - medicated prn/no hospitalizations, Hx Bronchitis, Hx COPD Denies: Hx Pneumonia EENT Medical History: Reports: None Neurological Medical History: Reports: Hx Cerebrovascular Accident - several years ago/no residual effects. Denies: Hx Seizures Endocrine Medical History: Reports: Hx Diabetes Mellitus Type 2. Denies: Hx Hyperthyroidism, Hx Hypothyroidism Renal/ Medical History: Reports: None. Denies: Hx Peritoneal Dialysis Malignancy Medical History: Reports: None GI Medical History: Reports: None. Denies: Hx Cirrhosis, Hx Gastroesophageal Reflux Disease, Hx Hepatitis, Hx Hiatal Hernia, Hx Ulcer Musculoskeletal Medical History: Reports None, Denies Hx Arthritis Skin Medical History: Reports None Psychiatric Medical History: Reports: Hx Depression - denies suicidal/homicidal ideation Traumatic Medical History: Reports: None Infectious Medical History: Reports: None. Denies: Hx Hepatitis Past Surgical History: Reports: Hx Section, Hx Hysterectomy, Hx Tubal Ligation. Denies: Hx Mastectomy, Hx Open Heart Surgery, Hx Pacemaker - Immunizations Hx Diphtheria, Pertussis, Tetanus Vaccination: No Review of Systems - Review of Systems Constitutional: No symptoms reported EENT: No symptoms reported Cardiovascular: See HPI, Chest pain, Dyspnea Respiratory: See HPI, Short of breath Gastrointestinal: No symptoms reported Genitourinary: No symptoms reported Female Genitourinary: No symptoms reported Musculoskeletal: No symptoms reported Skin: No symptoms reported Hematologic/Lymphatic: No symptoms reported Neurological/Psychological: No symptoms reported -: Yes All other systems reviewed and negative Physical Exam - Vital signs Vitals: Temp Pulse Resp BP 97.8 F 82 98 H 206/101 H 02/15/19 19:53 02/15/19 19:53 02/15/19 19:53 02/15/19 19:53 Interpretation: Normal Course - Re-evaluation Re-evalutation: 02/15/19 23:27 Troponin is negative. Labs are otherwise at the patient's baseline with mildly elevated BNP, chest x-ray is normal. Will admit to the hospital. - Vital Signs Vital signs: Temp Pulse Resp BP Pulse Ox 97.8 F 82 18 173/76 H 97 02/15/19 19:53 02/15/19 19:53 02/15/19 23:01 02/15/19 23:01 02/15/19 23:01 - Laboratory Result Diagrams: 02/15/19 20:24 02/15/19 20:24 Laboratory results interpreted by me: 02/15/19 02/15/19 02/15/19 20:24 20:24 20:24 RDW 14.1 H Est GFR (MDRD) Non-Af 59 L Glucose 145 H Magnesium 1.5 L NT-Pro-B Natriuret Pep 1080 H - Diagnostic Test Radiology reviewed: Image reviewed, Reports reviewed - EKG Interpretation by Me EKG shows normal: Sinus rhythm Rate: Normal Rhythm: NSR [place]/QRS: No: Right axis deviation, Left axis deviation, RBBB, LBBB, IVCD, LAHB/LAFB, LPHB/LPFB, Bifasicular block Voltage: No: Increased voltage, Consistant with LVH, Decreased voltage, Throughout, Limb leads P Waves: No: BRYON, LAE, Absent, AV Dissociation, Other Heart block present: No: 1st Degree, Mobitz 1, Mobitz 2, CHB (3rd degree block) When compared to previous EKG there are: Changes noted, Other - More pronounced T wave inversions in the lateral leads - Consults Dr. Lemus Time consulted: 00:08 - will admit Consulted provider: will come to ER Discharge - Discharge Clinical Impression: Dyspnea on exertion Chest pain Qualifiers: Chest pain type: unspecified Qualified Code(s): R07.9 - Chest pain, unspecified Condition: Stable Disposition: ADMITTED INPATIENT Admitting Provider: Allan (Hospitalist) Unit Admitted: Telemetry
[2019-02-15 21:07] LABS: ALBUMIN 3.9 g/dL (3.5-5.0); ALKALINE PHOSPHATASE 115 U/L (38-126); ANION GAP 8 (5-19); ASPARTATE AMINO TRANSFERASE 16 U/L (14-36); BILIRUBIN,DIRECT 0.1 mg/dL (0.0-0.4); BILIRUBIN,TOTAL 0.4 mg/dL (0.2-1.3); BLOOD UREA NITROGEN 19 mg/dL (7-20); CALCIUM 9.2 mg/dL (8.4-10.2); CARBON DIOXIDE 30 mmol/L (22-30); CHLORIDE 102 mmol/L (98-107); CREATINE KINASE 79 U/L (30-135); GLUCOSE 145 mg/dL (75-110); POTASSIUM 3.6 mmol/L (3.6-5.0); TOTAL PROTEIN 7.2 g/dL (6.3-8.2)
[2019-02-15 21:30] LABS: CREATINE KINASE MB 0.92 ng/mL (<4.55); NT PRO BNP 1080 pg/mL (5-900); TROPONIN I < 0.012 ng/mL
[2019-02-16 00:04] LABS: APPEARANCE,URINE CLEAR; BILIRUBIN,URINE NEGATIVE (NEGATIVE); COLOR,URINE STRAW; GLUCOSE, URINE NEGATIVE (NEGATIVE); KETONES,URINE NEGATIVE (NEGATIVE); LEUKOCYTE ESTERASE,URINE NEGATIVE (NEGATIVE); NITRITE,URINE NEGATIVE (NEGATIVE); PROTEIN,URINE NEGATIVE (NEGATIVE); URINE SPECIFIC GRAVITY 1.005; UROBILINOGEN,URINE NEGATIVE mg/dL (<2.0)
[2019-02-16 00:11] LABS: URINE AMPHETAMINES SCREEN NEGATIVE; URINE BARBITURATES SCREEN NEGATIVE; URINE BENZODIAZEPINES SCREEN NEGATIVE; URINE COCAINE SCREEN NEGATIVE; URINE MARIJUANA (THC) SCREEN NEGATIVE; URINE METHADONE SCREEN NEGATIVE; URINE PHENCYCLIDINE SCREEN NEGATIVE
[2019-02-16] MEDS ORDERED: ACETAMINOPHEN 325 MG TABLET PO PRN (05:30)
[2019-02-16] MEDS ORDERED: NITROGLYCERIN 0.4 MG/TAB 25 TAB/BOTTLE SL PRN (05:30)
--- NOTE | 2019-02-16 06:33 | PDOC H&P ---
History of Present Illness Admission Date/PCP: 02/16/19 00:18 Patient complains of: Cough and shortness of breath History of Present Illness: BARAK EWING is a 63 year old female with a past medical history of COPD, coronary artery disease status post coronary artery bypass graft 9 months ago at [facility]. Current tobacco, alcohol and crack cocaine abuse and medication noncompliance. Patient presents with approximately 1 week of shortness of breath and nonproductive cough with some degree of chest heaviness prompting evaluation in the emergency room where she is found to have an unremarkable work-up and is referred to the hospitalist for chest pain. Patient may admits regular crack cocaine use, discontinuing all medications 4 months ago. She is pain-free and her primary complaint is clearly respiratory. Past Medical History Cardiac Medical History: Reports: Congestive Heart Failure - Chronic systolic last EF was 45%, Coronary Artery Disease, Hyperlipidema, Hypertension Denies: DVT, Myocardial Infarction, Pulmonary Embolism Pulmonary Medical History: Reports: Asthma - medicated prn/no hospitalizations, Bronchitis, Chronic Obstructive Pulmonary Disease (COPD) Denies: Pneumonia EENT Medical History: Reports: None Neurological Medical History: Denies: Seizures Endocrine Medical History: Reports: Diabetes Mellitus Type 2 Denies: Hyperthyroidism, Hypothyroidism Renal/ Medical History: Reports: None Malignancy Medical History: Reports: None GI Medical History: Reports: None Denies: Cirrhosis, Gastroesophageal Reflux Disease, Hepatitis, Hiatal Hernia Musculoskeltal Medical History: Reports: None Denies: Arthritis Skin Medical History: Reports: None Psychiatric Medical History: Reports: Depression - denies suicidal/homicidal ideation Traumatic Medical History: Reports: None Hematology: Denies: Anemia, Sickle Cell Disease Infectious Medical History: Reports: None Past Surgical History Past Surgical History: Reports: Cardiac Catheterization, Section, Coronary Artery Bypass Graft, Hysterectomy, Tubal Ligation Denies: Amputation, Mastectomy, Pacemaker Social History Information Source: Patient Lives with: Alone Smoking Status: Current Every Day Smoker Electronic Cigarette use?: No Frequency of Alcohol Use: Occasional Hx Recreational Drug Use: Yes - last use was prior to previous admission Drugs: Cocaine Hx Prescription Drug Abuse: No - Advance Directive Resuscitation Status: Full Code Family History Family History: CAD, CVA, DM Parental Family History Reviewed: Yes Children Family History Reviewed: Yes Sibling(s) Family History Reviewed.: Yes Medication/Allergy Home Medications: Aspirin [Ecotrin 81 mg EC Tablet] 81 mg PO DAILY #30 tabec 03/03/16 Losartan Potassium 100 mg PO DAILY #30 tablet 03/18/16 Amlodipine Besylate [Norvasc 10 mg Tablet] 10 mg PO DAILY 06/06/18 Carvedilol [Coreg 25 mg Tablet] 25 mg PO Q12 06/06/18 Citalopram Hydrobromide [Citalopram HBr] 20 mg PO DAILY 06/06/18 Furosemide [Lasix 20 mg Tablet] 20 mg PO QAM 06/06/18 Insulin Glargine,Hum.rec.anlog [Lantus Insulin Inj 300 Unit/3 ml Pen] 1 unit SUBCUT QHS 06/06/18 Insulin Lispro [Humalog Insulin 100 Unit/1 ml 3 ml Vial] 0 unit SUBCUT .SLD SCALE 06/06/18 Metformin HCl [Metformin HCl ER] 1,000 mg PO DAILY 06/06/18 Pravastatin Sodium [Pravachol] 10 mg PO QHS 06/06/18 Allergies/Adverse Reactions: No Known Allergies Allergy (Verified 09/17/16 15:46) Review of Systems Constitutional: ABSENT: chills, fever(s), headache(s), weight gain, weight loss Eyes: ABSENT: visual disturbances Ears: ABSENT: hearing changes Cardiovascular: ABSENT: chest pain, dyspnea on exertion, edema, orthropnea, palpitations Respiratory: PRESENT: as per HPI, cough, dyspnea, sputum. ABSENT: hemoptysis Gastrointestinal: ABSENT: abdominal pain, constipation, diarrhea, hematemesis, hematochezia, nausea, vomiting Genitourinary: ABSENT: dysuria, hematuria Musculoskeletal: ABSENT: joint swelling Integumentary: ABSENT: rash, wounds Neurological: ABSENT: abnormal gait, abnormal speech, confusion, dizziness, focal weakness, syncope Psychiatric: ABSENT: anxiety, depression, homidical ideation, suicidal ideation Endocrine: ABSENT: cold intolerance, heat intolerance, polydipsia, polyuria Hematologic/Lymphatic: ABSENT: easy bleeding, easy bruising Physical Exam Vital Signs: Temp Pulse Resp BP Pulse Ox 97.9 F 82 14 172/77 H 97 02/16/19 05:59 02/15/19 19:53 02/16/19 05:01 02/16/19 05:01 02/16/19 05:01 Intake & Output 02/14/19 02/15/19 02/16/19 11:59 11:59 11:59 Weight 73.3 kg General appearance: PRESENT: no acute distress, cooperative, well-developed, well-nourished Head exam: PRESENT: atraumatic, normocephalic Eye exam: PRESENT: conjunctiva pink, EOMI, PERRLA. ABSENT: scleral icterus Ear exam: PRESENT: normal external ear exam Mouth exam: PRESENT: moist, tongue midline Neck exam: ABSENT: carotid bruit, JVD, lymphadenopathy, thyromegaly Respiratory exam: PRESENT: accessory muscle use, prolonged expiratory phas, rales, retraction, symmetrical, tachypnea. ABSENT: rhonchi, wheezes Cardiovascular exam: PRESENT: RRR. ABSENT: diastolic murmur, rubs, systolic murmur Pulses: PRESENT: normal dorsalis pedis pul Vascular exam: PRESENT: normal capillary refill GI/Abdominal exam: PRESENT: normal bowel sounds, soft. ABSENT: distended, guarding, mass, organolmegaly, rebound, tenderness Rectal exam: PRESENT: deferred Extremities exam: PRESENT: full ROM. ABSENT: calf tenderness, clubbing, pedal edema Neurological exam: PRESENT: alert, awake, oriented to person, oriented to place, oriented to time, oriented to situation, CN II-XII grossly intact. ABSENT: m otor sensory deficit Psychiatric exam: PRESENT: appropriate affect, normal mood. ABSENT: homicidal ideation, suicidal ideation Skin exam: PRESENT: dry, intact, warm. ABSENT: cyanosis, rash Results Laboratory Results: 02/15/19 20:24 02/15/19 20:24 02/15/19 02/15/19 02/15/19 20:24 20:24 23:32 WBC 8.8 RBC 4.51 Hgb 13.5 Hct 41.5 MCV 92 MCH 30.0 MCHC 32.6 RDW 14.1 H Plt Count 339 Seg Neutrophils % 67.0 Sodium 139.7 Potassium 3.6 Chloride 102 Carbon Dioxide 30 Anion Gap 8 BUN 19 Creatinine 0.96 Est GFR ( Amer) > 60 Glucose 145 H Calcium 9.2 Magnesium 1.5 L Total Bilirubin 0.4 AST 16 Alkaline Phosphatase 115 Total Protein 7.2 Albumin 3.9 Urine Color STRAW Urine Appearance CLEAR Urine pH 7.0 Ur Specific Yolyn 1.005 Urine Protein NEGATIVE Urine Glucose (UA) NEGATIVE Urine Ketones NEGATIVE Urine Blood NEGATIVE Urine Nitrite NEGATIVE Ur Leukocyte Esterase NEGATIVE Urine WBC (Auto) 0 02/15/19 02/15/19 02/16/19 20:24 20:24 00:30 Creatine Kinase 79 CK-MB (CK-2) 0.92 Troponin I < 0.012 0.015 NT-Pro-B Natriuret Pep 1080 H 02/16/19 04:06 Creatine Kinase CK-MB (CK-2) Troponin I < 0.012 NT-Pro-B Natriuret Pep Impressions: Chest X-Ray 02/15/19 20:17 IMPRESSION: No acute disease. Assessment and Plan - Diagnosis (1) Acute bronchitis Is this a current diagnosis for this admission?: Yes Plan: Empiric antibiotics, chlorpheniramine, Flonase, albuterol and Atrovent (2) COPD exacerbation Is this a current diagnosis for this admission?: Yes Plan: Supplemental oxygen, flutter valve, education (3) Chest pain Qualifiers: Chest pain type: unspecified Qualified Code(s): R07.9 - Chest pain, unspecified Is this a current diagnosis for this admission?: Yes Plan: Atypical chest pain though the patient's pain is atypical there are multiple risk factors for coronary artery disease and subsequently will observe and evaluation of acute coronary syndrome versus coronary artery disease with anginal equivalents. Cardiac monitoring blood pressure Q6 hours ,TSH, lipid profile, serial cardiac enzymes and cardiac stress test (4) Dyspnea on exertion Is this a current diagnosis for this admission?: Yes Plan: Most likely secondary to #1, (5) Cocaine use Is this a current diagnosis for this admission?: Yes Plan: Supportive care, clonidine, Valium as needed - Time Time Spent with patient: 25-34 minutes - Inpatient Certification Medical Necessity: Need Close Monitoring Due to Risk of Patient Decompensation
[2019-02-16 07:06] LABS: CHOLESTEROL 212.72 mg/dL (0-200); TRIGLYCERIDES 126 mg/dL (<150)
[2019-02-16 07:17] LABS: DIRECT LDL 136 mg/dL (<100)
[2019-02-16] MEDS: CHLORPHENIRAMINE MALEATE 4 MG TABLET PO SCH ×3 (07:38→21:26)
--- NOTE | 2019-02-16 08:01 | EKG REPORT ---
SEVERITY:- ABNORMAL ECG - SINUS RHYTHM PROBABLE LEFT ATRIAL ABNORMALITY LVH WITH SECONDARY REPOLARIZATION ABNORMALITY ANTERIOR ST ELEVATION, PROBABLY DUE TO LVH : Confirmed by: Lennox Yusuf MD 16-Feb-2019 08:01:24
[2019-02-16] MEDS: PREDNISONE 20 MG TABLET PO SCH ×2 (10:12→17:33)
[2019-02-16] MEDS: ASPIRIN 81 MG TABLET, ENT COATED PO SCH (10:12)
[2019-02-16] MEDS: CLOPIDOGREL BISULFATE 75 MG TABLET PO SCH (10:12)
[2019-02-16] MEDS: AZITHROMYCIN 500 MG in DEXTROSE 5%-WATER 250 ML IV SCH (10:13)
[2019-02-16] MEDS: FLUTICASONE NASAL SPRAY 50 MCG/SPRY 120 SPRAY/16 GM NASL SCH ×2 (10:13→21:30)
[2019-02-16] MEDS: HYDRALAZINE HCL INJ/PF 20 MG/1 ML SDV IV PRN (17:58)
[2019-02-16] MEDS ORDERED: ATORVASTATIN CALCIUM 40 MG TABLET PO SCH (22:00)
[2019-02-17] MEDS: CHLORPHENIRAMINE MALEATE 4 MG TABLET PO SCH (04:27)
[2019-02-17] MEDS ORDERED: INFLUENZA QUAD (6MOS+) 2019-20 VAC 0.5 ML SYR IM ONE (08:00)
[2019-02-17] MEDS: HYDRALAZINE HCL INJ/PF 20 MG/1 ML SDV IV PRN (09:07)
[2019-02-17] MEDS: PREDNISONE 20 MG TABLET PO SCH (11:29)
[2019-02-17] MEDS: AZITHROMYCIN 500 MG in DEXTROSE 5%-WATER 250 ML IV SCH (11:29)
[2019-02-17] MEDS: ASPIRIN 81 MG TABLET, ENT COATED PO SCH (11:29)
[2019-02-17] MEDS: CLOPIDOGREL BISULFATE 75 MG TABLET PO SCH (11:29)
[2019-02-17] MEDS: FLUTICASONE NASAL SPRAY 50 MCG/SPRY 120 SPRAY/16 GM NASL SCH (11:30)
[2019-02-17 15:28] VITALS: BP 174/85
--- NOTE | 2019-02-17 17:54 | PDOC DISCHARGE SUMMARY ---
Impression - Admit/DC Date/PCP Admission Date/Primary Care Provider: 02/16/19 00:18 Discharge Date: 02/17/19 - Additional Information Resuscitation Status: Full Code Discharge Diet: Cardiac Discharge Activity: Balance Activity w/Rest, Slowly Increase Activity Referrals: ISAIAS NAPIER MD [NO LOCAL MD] - 03/10/19 11:30 am HAILEY BARRETO PA-C [NO LOCAL MD] - 03/01/19 11:00 am Prescriptions: Azithromycin 500 mg PO DAILY #5 tablet Prednisone [Deltasone 20 mg Tablet] 40 mg PO DAILY #10 tablet Lisinopril [Prinivil 10 mg Tablet] 10 mg PO DAILY #30 tablet Home Medications: Albuterol Sulfate [Proair HFA Inhalation Aerosol 8.5 gm MDI] 2 puff IH Q4HP PRN 02/16/19 Aspirin [Ecotrin 81 mg EC Tablet] 81 mg PO DAILY 02/16/19 Potassium Chloride [Klor-Con 10 Meq Capsule ER] 10 meq PO DAILY 02/16/19 Azithromycin 500 mg PO DAILY #5 tablet 02/17/19 Lisinopril [Prinivil 10 mg Tablet] 10 mg PO DAILY #30 tablet 02/17/19 Prednisone [Deltasone 20 mg Tablet] 40 mg PO DAILY #10 tablet 02/17/19 History of Present Illiness History of Present Illness: BARAK EWING is a 63 year old female with a past medical history of COPD, coronary artery disease status post coronary artery bypass graft 9 months ago at [facility]. Current tobacco, alcohol and crack cocaine abuse and medication noncompliance. Patient presents with approximately 1 week of shortness of breath and nonproductive cough with some degree of chest heaviness prompting evaluation in the emergency room where she is found to have an unremarkable work-up and is referred to the hospitalist for chest pain. Patient may admits regular crack cocaine use, discontinuing all medications 4 months ago. She is pain-free and her primary complaint is clearly respiratory. Hospital Course Hospital Course: She was put on some prednisone and some azithromycin and she had some improvement in her breathing. Her troponins were negative. She had a stress test that was negative. It was noted that she had an EF of around 36%. She already has a blast setter in [place] and follow-up has been scheduled. I put her on some lisinopril for her blood pressure, I did not put her on a beta- gregorio because I am concerned about the negative interaction between that and the crack cocaine that she has been using. If she can go for a length of time without being on crack cocaine then initiation of a beta-gregorio can be considered at that time. Her labs and examination were reassuring and she was discharged in good condition. Physical Exam Vital Signs: Temp Pulse Resp BP Pulse Ox 97.8 F 88 18 174/85 H 100 02/17/19 15:22 02/17/19 15:22 02/17/19 15:22 02/17/19 15:22 02/17/19 15:22 Intake & Output 02/16/19 02/17/19 02/18/19 06:59 06:59 06:59 Intake Total 472 250 Balance 472 250 Weight 73.3 kg 68.5 kg General appearance: PRESENT: no acute distress, cooperative, disheveled Respiratory exam: PRESENT: rhonchi, symmetrical, unlabored. ABSENT: accessory muscle use, chest wall tenderness, clear to auscultation sindy, crackles, prolonged expiratory phas, tachypnea, wheezes Cardiovascular exam: PRESENT: RRR, +S1, +S2 Pulses: PRESENT: normal carotid pulses Vascular exam: PRESENT: normal capillary refill GI/Abdominal exam: PRESENT: normal bowel sounds, soft. ABSENT: distended, guarding, rebound, tenderness Extremities exam: ABSENT: clubbing, pedal edema Musculoskeletal exam: PRESENT: normal inspection. ABSENT: deformity Neurological exam: PRESENT: alert, awake, oriented to person, oriented to place, oriented to time, oriented to situation Psychiatric exam: PRESENT: appropriate affect, normal mood Skin exam: PRESENT: dry, warm Results Laboratory Results: WBC 8.8 10^3/uL (4.0-10.5) 02/15/19 20:24 RBC 4.51 10^6/uL (3.72-5.28) 02/15/19 20:24 Hgb 13.5 g/dL (12.0-15.5) 02/15/19 20:24 Hct 41.5 % (36.0-47.0) 02/15/19 20:24 MCV 92 fl (80-97) 02/15/19 20:24 MCH 30.0 pg (27.0-33.4) 02/15/19 20:24 MCHC 32.6 g/dL (32.0-36.0) 02/15/19 20:24 RDW 14.1 % (11.5-14.0) H 02/15/19 20:24 Plt Count 339 10^3/uL (150-450) 02/15/19 20:24 Lymph % (Auto) 23.9 % (13-45) 02/15/19 20:24 [place] % (Auto) 6.3 % (3-13) 02/15/19 20:24 Eos % (Auto) 2.3 % (0-6) 02/15/19 20:24 Baso % (Auto) 0.5 % (0-2) 02/15/19 20:24 Absolute Neuts (auto) 5.9 10^3/uL (1.7-8.2) 02/15/19 20:24 Absolute Lymphs (auto) 2.1 10^3/uL (0.5-4.7) 02/15/19 20:24 Absolute Monos (auto) 0.6 10^3/uL (0.1-1.4) 02/15/19 20:24 Absolute Eos (auto) 0.2 10^3/uL (0.0-0.6) 02/15/19 20:24 Absolute Basos (auto) 0.0 10^3/uL (0.0-0.2) 02/15/19 20:24 Seg Neutrophils % 67.0 % (42-78) 02/15/19 20:24 Sodium 139.7 mmol/L (137-145) 02/15/19 20:24 Potassium 3.6 mmol/L (3.6-5.0) 02/15/19 20:24 Chloride 102 mmol/L (98-107) 02/15/19 20:24 Carbon Dioxide 30 mmol/L (22-30) 02/15/19 20:24 Anion Gap 8 (5-19) 02/15/19 20:24 BUN 19 mg/dL (7-20) 02/15/19 20:24 Creatinine 0.96 mg/dL (0.52-1.25) 02/15/19 20:24 Est GFR ( Amer) > 60 (>60) 02/15/19 20:24 Est GFR (MDRD) Non-Af 59 (>60) L 02/15/19 20:24 Glucose 145 mg/dL (75-110) H 02/15/19 20:24 POC Glucose 248 mg/dL (70-110) H 02/16/19 18:48 Hemoglobin A1c % 8.0 % (4.7-6.0) H 02/16/19 06:34 Calcium 9.2 mg/dL (8.4-10.2) 02/15/19 20:24 Magnesium 1.5 mg/dL (1.6-2.3) L 02/15/19 20:24 Total Bilirubin 0.4 mg/dL (0.2-1.3) 02/15/19 20:24 Direct Bilirubin 0.1 mg/dL (0.0-0.4) 02/15/19 20:24 Neonat Total Bilirubin Not Reportable 02/15/19 20:24 Neonat Direct Bilirubin Not Reportable 02/15/19 20:24 Neonat Indirect Bili Not Reportable 02/15/19 20:24 AST 16 U/L (14-36) 02/15/19 20:24 ALT 13 U/L (<35) 02/15/19 20:24 Alkaline Phosphatase 115 U/L (38-126) 02/15/19 20:24 Creatine Kinase 79 U/L (30-135) 02/15/19 20:24 CK-MB (CK-2) 0.92 ng/mL (<4.55) 02/15/19 20:24 Troponin I < 0.012 ng/mL 02/16/19 19:07 NT-Pro-B Natriuret Pep 1080 pg/mL (5-900) H 02/15/19 20:24 Total Protein 7.2 g/dL (6.3-8.2) 02/15/19 20:24 Albumin 3.9 g/dL (3.5-5.0) 02/15/19 20:24 Triglycerides 126 mg/dL (<150) 02/16/19 06:34 Cholesterol 212.72 mg/dL (0-200) H 02/16/19 06:34 LDL Cholesterol Direct 136 mg/dL (<100) H 02/16/19 06:34 VLDL Cholesterol 25.0 mg/dL (10-31) 02/16/19 06:34 HDL Cholesterol 51 mg/dL (>40) 02/16/19 06:34 Urine Color STRAW 02/15/19 23:32 Urine Appearance CLEAR 02/15/19 23:32 Urine pH 7.0 (5.0-9.0) 02/15/19 23:32 Ur Specific Mobile 1.005 02/15/19 23:32 Urine Protein NEGATIVE mg/dL (NEGATIVE) 02/15/19 23:32 Urine Glucose (UA) NEGATIVE mg/dL (NEGATIVE) 02/15/19 23:32 Urine Ketones NEGATIVE mg/dL (NEGATIVE) 02/15/19 23:32 Urine Blood NEGATIVE (NEGATIVE) 02/15/19 23:32 Urine Nitrite NEGATIVE (NEGATIVE) 02/15/19 23:32 Urine Bilirubin NEGATIVE (NEGATIVE) 02/15/19 23:32 Urine Urobilinogen NEGATIVE mg/dL (<2.0) 02/15/19 23:32 Ur Leukocyte Esterase NEGATIVE (NEGATIVE) 02/15/19 23:32 Urine WBC (Auto) 0 /HPF 02/15/19 23:32 Urine Bacteria (Auto) TRACE /HPF 02/15/19 23:32 Squamous Epi Cells Auto 2 /HPF 02/15/19 23:32 Urine Mucus (Auto) RARE /LPF 02/15/19 23:32 Urine Ascorbic Acid NEGATIVE (NEGATIVE) 02/15/19 23:32 Urine Opiates Screen NEGATIVE 02/15/19 23:32 Urine Methadone Screen NEGATIVE 02/15/19 23:32 Ur Barbiturates Screen NEGATIVE 02/15/19 23:32 Ur Phencyclidine Scrn NEGATIVE 02/15/19 23:32 Ur Amphetamines Screen NEGATIVE 02/15/19 23:32 U Benzodiazepines Scrn NEGATIVE 02/15/19 23:32 Urine Cocaine Screen NEGATIVE 02/15/19 23:32 U Marijuana (THC) Screen NEGATIVE 02/15/19 23:32 02/15/19 02/16/19 02/16/19 20:24 00:30 04:06 CK-MB (CK-2) 0.92 Troponin I < 0.012 0.015 < 0.012 NT-Pro-B Natriuret Pep 1080 H 02/16/19 02/16/19 02/16/19 06:34 13:33 19:07 CK-MB (CK-2) Troponin I < 0.012 < 0.012 < 0.012 NT-Pro-B Natriuret Pep Impressions: Chest X-Ray 02/15/19 20:17 IMPRESSION: No acute disease. Plan Time Spent: Greater than 30 Minutes Stroke Is this a Stroke Patient?: No Acute Heart Failure - Is this a Heart Failure Patient?: Yes Documentation of LVEF assessment?: Planned for after discharge LVEF < 40%?: Yes-if yes answer questions a through e a) Discharged on ACEI?: Yes b) Discharges on ARB?: No-document contraindications c) Discharged on ARNI?: No-Document Contraindications - Discharged on FLORENCIA inhibitor d) Discharged on evidence-based Beta gregorio(carvedilol, sustained release metoprolol succinate, or bisoprolol)?: No, document contraindications - Current cocaine use e) For LVEF <35%, discharged on Aldosterone antagonist?: N/A (LVEF > or = 35%) 3. Anticoagulant therapy for permanect/persistent/paraoxysmal Afib or Aflutter: N/A Follow-up Appointment scheduled within 7 days?: Yes
--- NOTE | 2019-02-18 00:33 | DRAGON STRESS TEST REPORT ---
Intravenous Lexiscan Cardiolite stress test using single photon emmision computerized tomography. Date of procedure: 02/17/2019. Ordering Provider: Patient's status Indication: Chest pain. Coronary risk factors: Age, diabetes mellitus, hypertension, dyslipidemia, tobacco abuse disorder, and family history of coronary artery disease. Resting EKG: Sinus Rhythm. LVH with strain pattern Stress EKG: No changes of ischemia. The patient had no chest pain or discomfort. There was no arrhythmias seen. The patient complained of increasing shortness of breath with some end expiratory wheezing. This was reversed and resolved with 50 mg of intravenous Aminophyllin given slowly. Reason for termination: Protocol. Conclusions: Normal EKG and hemodynamic response to IV Lexiscan. Nuclear data: At rest the patient was given 11.88 millicuries of technetium 99m sestamibi injected intravenously. As per protocol rest non gated SPECT images were obtained. Subsequently the patient was given intravenous Lexiscan at a dose of 0.4 mg in 5 mL intravenously, followed by flush with normal saline. Subsequently the stress dose of 34.5 millicuries of technetium 99m sestamibi was injected intravenously. As per protocol stress gated images were obtained. Nuclear interpretation: Review of images showed that all segments of the myocardium had normal perfusion at rest, and normal perfusion post stress with IV Lexiscan. All segments of the myocardium had normal thickening by gated study. The left ventricle was dilated in both rest and stress images, with enlargement of the left ventricle in both the rest and stress images. There is moderate global hypokinesis. T. I D. ratio was normal at 1.08. There is no transient ischemic dilatation of the left ventricle. Computer read rest, and stress left ventricular ejection fraction were 36 %, and 34 %, respectively. Visually the left ventricle ejection fraction both the stress and rest images were moderately decreased. Conclusion: 1. There is no scintigraphic evidence of Lexiscan induced myocardial ischemia. 2. There is no scintigraphic evidence of myocardial infarction/scar. 3. There is evidence of dilated cardiomyopathy with moderately reduced LV ejection fraction. Recommendations: Aggressive risk factor modification, and treating the underlying co- morbidities. Check echo for LV ejection fraction correlation. Aggressive treatment of cardiomyopathy. [facility]
== END 2019-02-17 16:00 | disposition home or self-care (01) ==
LOC: ER 19:52 → EH 02-16 00:18 → INTOOBSV 02-16 00:18 → 5 02-16 17:29
PROVIDERS: ADMIT Internal Medicine; ATTEND Internal Medicine
DX: J44.1 Chronic obstructive pulmonary disease with (acute) exacerbation (principal); R07.9 Chest pain, unspecified; I11.0 Hypertensive heart disease with heart failure; I50.9 Heart failure, unspecified; E66.9 Obesity, unspecified; I25.10 Atherosclerotic heart disease of native coronary artery without angina pectoris; F10.10 Alcohol abuse, uncomplicated; F14.10 Cocaine abuse, uncomplicated; E78.5 Hyperlipidemia, unspecified; J45.909 Unspecified asthma, uncomplicated; E11.9 Type 2 diabetes mellitus without complications; F17.200 Nicotine dependence, unspecified, uncomplicated; Z79.82 Long term (current) use of aspirin; Z95.5 Presence of coronary angioplasty implant and graft; Z91.14 Patient's other noncompliance with medication regimen; Z83.3 Family history of diabetes mellitus; Z82.3 Family history of stroke; Z82.49 Family history of ischemic heart disease and other diseases of the circulatory system
CPT/HCPCS: 93005; 99285; 36415 ×2; 82553; 82962; 82550; 83735; 85025; 80053; 81001; 84484 ×2; 80307; 83036; 80061; 83880; 93017; 71045; 78452; 90686; 94799 ×2; 93010; 94667 ×2; 94668; G0378 ×3; A9500; J3490 ×5; J0360 ×2; J7512 ×2; J7060 ×2; J0456 ×2; Q9969

== ENCOUNTER 2019-12-06 00:43 | Emergency (ER) | payer MEDICAID ==
[2019-12-06 00:59] VITALS: BP 168/74
--- NOTE | 2019-12-06 03:02 | ER Document Report ---
ED Medical Screen (RME) - General Chief Complaint: Numbness of Arm Stated Complaint: LEFT ARM PAIN/MOUTH TWITCHING/CHEST TIGHTNESS Time Seen by Provider: 12/06/19 02:53 Notes: 64-year-old female with more than 1 complaint. First complaint is that she started feeling pain in her right shoulder area that felt sharp with radiating pain down her arm and shooting tingling sensation in her hand. She also started feeling chest pressure at the time, she states she also developed a headache at that time. She also had twitching on her left side of her mouth, but denies facial drooping. She states she was almost at [facility] so she went anyway but she continued to feel this and became concerned. This was before 5 PM. She states her headache resolved, she still has intermittent discomfort and tingling in her right arm. Patient has had a CABG and had a stroke 2 months ago, states she is taking baby aspirin. TRAVEL OUTSIDE OF THE [place] IN LAST 30 DAYS: No - Related Data Allergies/Adverse Reactions: No Known Allergies Allergy (Verified 09/17/16 15:46) Past Medical History - Past Medical History Cardiac Medical History: Reports: Hx Congestive Heart Failure, Hx Coronary Artery Disease, Hx Hypercholesterolemia, Hx Hypertension Denies: Hx DVT, Hx Heart Attack, Hx Pulmonary Embolism Pulmonary Medical History: Reports: Hx Asthma, Hx Bronchitis, Hx COPD Denies: Hx Pneumonia Neurological Medical History: Reports: Hx Cerebrovascular Accident - several ye ars ago/no residual effects. Denies: Hx Seizures Endocrine Medical History: Reports: Hx Diabetes Mellitus Type 2. Denies: Hx Hyperthyroidism, Hx Hypothyroidism Renal/ Medical History: Denies: Hx Peritoneal Dialysis GI Medical History: Denies: Hx Cirrhosis, Hx Gastroesophageal Reflux Disease, Hx Hepatitis, Hx Hiatal Hernia, Hx Ulcer Musculoskeltal Medical History: Denies Hx Arthritis Psychiatric Medical History: Reports: Hx Depression - denies suicidal/homicidal ideation Infectious Medical History: Denies: Hx Hepatitis Past Surgical History: Reports: Hx Cardiac Catheterization, Hx Cardiac Surgery - CABG, Hx Section, Hx Coronary Artery Bypass Graft, Hx Hysterectomy, Hx Tubal Ligation. Denies: Hx Mastectomy, Hx Open Heart Surgery, Hx Pacemaker - Immunizations Hx Diphtheria, Pertussis, Tetanus Vaccination: No Physical Exam - Vital signs Vitals: Temp Pulse Resp BP Pulse Ox 98.5 F 66 20 168/74 H 98 12/06/19 00:58 12/06/19 00:58 12/06/19 00:58 12/06/19 00:58 12/06/19 00:58 - Neurological Orientation: AAOx4. No: Disoriented to person [place] Coma Scale Eye Opening: Spontaneous Bernice Coma Scale Verbal: Oriented Bernice Coma Scale Motor: Obeys Commands Bernice Coma Scale Total: 15 Speech: Normal. No: Dysarthria Cranial nerves: Normal. No: Facial palsy, Forehead sparing Cerebellar coordination: Normal. 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 Patient has no current chest pain but she does have pain with palpation and movement of the right arm. Initiating work-up for chest pain, CT of the head will be performed, remaining work-up pending. I have greeted and performed a rapid initial assessment of this patient. A comprehensive ED assessment and evaluation of the patient, analysis of test results and completion of the medical decision making process will be conducted by additional ED providers. - Vital Signs Vital signs: Temp Pulse Resp BP Pulse Ox 98.5 F 66 20 168/74 H 98 12/06/19 00:58 12/06/19 00:58 12/06/19 00:58 12/06/19 00:58 12/06/19 00:58
[2019-12-06 03:48] LABS: ABSOLUTE EOSINOPHILS # (AUTO) 0.2 10^3/uL (0.0-0.6); ABSOLUTE LYMPHOCYTES (AUTO) 2.3 10^3/uL (0.5-4.7); ABSOLUTE MONOCYTES (AUTO) 0.6 10^3/uL (0.1-1.4); ABSOLUTE NEUT (AUTO) 5.9 10^3/uL (1.7-8.2); BASOPHILS % (AUTO) 0.4 % (0-2); EOSINOPHILS % (AUTO) 1.9 % (0-6); HEMATOCRIT 38.5 % (36.0-47.0); HEMOGLOBIN 12.6 g/dL (12.0-15.5); LYMPHOCYTES % (AUTO) 25.4 % (13-45); MEAN CORPUSCULAR HEMOGLOBIN 30.9 pg (27.0-33.4); MEAN CORPUSCULAR HGB CONC 32.8 g/dL (32.0-36.0); MEAN CORPUSCULAR VOLUME 94 fl (80-97); MONOCYTES % (AUTO) 6.2 % (3-13); PLATELET COUNT 383 10^3/uL (150-450); SEGMENTED NEUTROPHILS % (AUTO) 66.1 % (42-78); TOTAL CELLS COUNTED % (AUTO) 100 %; WHITE BLOOD COUNT 8.9 10^3/uL (4.0-10.5)
[2019-12-06 04:04] LABS: ALBUMIN 4.6 g/dL (3.5-5.0); ALKALINE PHOSPHATASE 122 U/L (38-126); ANION GAP 8 (5-19); ASPARTATE AMINO TRANSFERASE 17 U/L (14-36); BILIRUBIN,TOTAL 0.6 mg/dL (0.2-1.3); BLOOD UREA NITROGEN 22 mg/dL (7-20); CALCIUM 9.5 mg/dL (8.4-10.2); CARBON DIOXIDE 32 mmol/L (22-30); CHLORIDE 100 mmol/L (98-107); GLUCOSE 173 mg/dL (75-110); POTASSIUM 3.5 mmol/L (3.6-5.0); TOTAL PROTEIN 8.1 g/dL (6.3-8.2)
[2019-12-06 04:22] LABS: APPEARANCE,URINE SLIGHTLY-CLOUDY; BILIRUBIN,URINE NEGATIVE (NEGATIVE); COLOR,URINE YELLOW; GLUCOSE, URINE 150 mg/dL (NEGATIVE); KETONES,URINE NEGATIVE (NEGATIVE); LEUKOCYTE ESTERASE,URINE NEGATIVE (NEGATIVE); NITRITE,URINE NEGATIVE (NEGATIVE); PROTEIN,URINE NEGATIVE (NEGATIVE); UROBILINOGEN,URINE NEGATIVE mg/dL (<2.0)
--- NOTE | 2019-12-06 04:36 | RADIOLOGY REPORT (SQ) ---
INDICATION: headache, right arm numbness. COMPARISON: None CORRELATION: None TECHNIQUE: Noncontrast spiral axial CT images were obtained from the skull base to vertex. This exam was performed according to our departmental dose-optimization program, which includes automated exposure control, adjustment of the mA and/or kV according to patient size and/or use of iterative reconstruction techniques. FINDINGS: There is no evidence of acute intracranial hemorrhage, midline shift, mass effect or mass lesion. Nelson-white differentiation is normal. There is no evidence of acute large territory infarct. Ventricles and extracerebral spaces are within normal limits, for age. Vascular calcification The visualized paranasal sinuses are grossly clear. The orbits and eyeballs are unremarkable. The mastoid air cells are clear. Skull base and calvarium appear intact. IMPRESSION: No acute intracranial process is identified.
--- NOTE | 2019-12-06 04:37 | RADIOLOGY REPORT (SQ) ---
Right shoulder three view on 12/06/2019 at 4:00 AM CLINICAL INDICATION: Right shoulder pain COMPARISON: 05/23/2013 FINDINGS: The AC joint is well aligned. Mild degenerative changes are noted in the glenohumeral joint. The glenohumeral joint is well located. There are no fractures. No other bony abnormality is noted. IMPRESSION: Degenerative changes of the right shoulder with no acute abnormality.
--- NOTE | 2019-12-06 04:38 | RADIOLOGY REPORT (SQ) ---
CHEST 1 VIEW on 12/06/2019 at 3:59 AM CLINICAL INDICATION: Chest pain COMPARISON: 02/15/2019 FINDINGS: The patient is status post median sternotomy. Heart is borderline in size. There is minimal biapical scarring. The lungs are otherwise clear. Hilar and mediastinal contours are within normal limits. Pulmonary vascularity is within normal limits. IMPRESSION: No acute disease.
--- NOTE | 2019-12-06 10:13 | EKG REPORT ---
SEVERITY:- ABNORMAL ECG - SINUS RHYTHM PROBABLE LEFT ATRIAL ABNORMALITY LVH WITH SECONDARY REPOLARIZATION ABNORMALITY : Confirmed by: Marylin Cavazos MD 06-Dec-2019 10:13:02
== END 2019-12-06 07:21 | disposition left against medical advice (07) ==
LOC: ER 00:43
DX: R20.0 Anesthesia of skin (principal); M79.602 Pain in left arm; I50.9 Heart failure, unspecified; I25.10 Atherosclerotic heart disease of native coronary artery without angina pectoris; I11.0 Hypertensive heart disease with heart failure; E78.00 Pure hypercholesterolemia, unspecified; E11.9 Type 2 diabetes mellitus without complications; Z86.73 Personal history of transient ischemic attack (TIA), and cerebral infarction without residual deficits; Z95.1 Presence of aortocoronary bypass graft; Z79.82 Long term (current) use of aspirin
CPT/HCPCS: 36415; 70450; 71045; 80053; 81001; 84484; 85025; 93005; 93010; 99281

== ENCOUNTER 2020-01-06 12:59 | Emergency (ER) | payer MEDICAID ==
--- NOTE | 2020-01-06 13:18 | ER Document Report ---
ED Medical Screen (RME) - General Chief Complaint: Syncope Stated Complaint: SYNCOPE Time Seen by Provider: 01/06/20 13:10 Mode of Arrival: Ambulatory Information source: Patient Notes: 64-year-old female presented to ED for syncopal episode at home. She states she woke up this morning took her medicines went to the bathroom felt a little dizzy and unsteady and then the next thing she knows she woke up in the floor in a different room. She states she injured both knees but she is able to walk. She states she does have a history of a cardiac arrest with a 5 way bypass stroke blood pressure stroke and diabetes. She is on multiple blood pressure medicine she is on Brilinta states she is also on a shot that she takes once a week but she does not remember the name of that. She is alert oriented answering questions appropriately at this time. I have greeted and performed a rapid initial assessment of this patient. A comprehensive ED assessment and evaluation of the patient, analysis of test results and completion of medical decision making process will be conducted by an additional ED providers. TRAVEL OUTSIDE OF THE [place] IN LAST 30 DAYS: No - Related Data Allergies/Adverse Reactions: No Known Allergies Allergy (Verified 09/17/16 15:46) Past Medical History - Past Medical History Cardiac Medical History: Reports: Hx Congestive Heart Failure, Hx Coronary Artery Disease, Hx Hypercholesterolemia, Hx Hypertension Denies: Hx DVT, Hx Heart Attack, Hx Pulmonary Embolism Pulmonary Medical History: Reports: Hx Asthma, Hx Bronchitis, Hx COPD Denies: Hx Pneumonia Neurological Medical History: Reports: Hx Cerebrovascular Accident - several years ago/no residual effects. Denies: Hx Seizures Endocrine Medical History: Reports: Hx Diabetes Mellitus Type 2. Denies: Hx Hyperthyroidism, Hx Hypothyroidism Renal/ Medical History: Denies: Hx Peritoneal Dialysis GI Medical History: Denies: Hx Cirrhosis, Hx Gastroesophageal Reflux Disease, Hx Hepatitis, Hx Hiatal Hernia, Hx Ulcer Musculoskeltal Medical History: Denies Hx Arthritis Psychiatric Medical History: Reports: Hx Depression - denies suicidal/homicidal ideation Infectious Medical History: Denies: Hx Hepatitis Past Surgical History: Reports: Hx Cardiac Catheterization, Hx Cardiac Surgery - CABG, Hx Section, Hx Coronary Artery Bypass Graft, Hx Hysterectomy, Hx Tubal Ligation. Denies: Hx Mastectomy, Hx Open Heart Surgery, Hx Pacemaker - Immunizations Hx Diphtheria, Pertussis, Tetanus Vaccination: No Physical Exam - Vital signs Vitals: Temp Pulse Resp BP Pulse Ox 98.0 F 78 24 H 128/68 H 96 01/06/20 13:03 01/06/20 13:03 01/06/20 13:03 01/06/20 13:03 01/06/20 13:03 Course - Vital Signs Vital signs: Temp Pulse Resp BP Pulse Ox 98.0 F 78 24 H 128/68 H 96 01/06/20 13:03 01/06/20 13:03 01/06/20 13:03 01/06/20 13:03 01/06/20 13:03
--- NOTE | 2020-01-06 13:45 | RADIOLOGY REPORT (SQ) ---
EXAM DESCRIPTION: CT HEAD WITHOUT IMAGES COMPLETED DATE/TIME: 01/06/2020 1:29 pm REASON FOR STUDY: Syncope with loss of consciousness COMPARISON: CT of the head without contrast from 12/06/2019. TECHNIQUE: Axial images acquired through the brain without intravenous contrast. Images reviewed wi th bone, brain and subdural windows. Additional sagittal and coronal reconstructions were generated. Images stored on PACS. All CT scanners at this facility use dose modulation, iterative reconstruction, and/or weight based d osing when appropriate to reduce radiation dose to as low as reasonably achievable (ALARA). [facility]: Dose Right [facility]: CareDose [facility]: Dose Right [facility]: Teradose 4D [facility]: [employer] RADIATION DOSE: CT Rad equipment meets quality standard of care and radiation dose reduction techniq ues were employed. CTDIvol: 53.2 mGy. DLP: 937 mGy-cm. LIMITATIONS: None. FINDINGS: There is no acute intracranial hemorrhage, vascular territorial infarct, extra-axial fluid collection, mass effect or midline shift. The gtz-white matter differentiation is preserved. The caliber of the ventricles is concordant with the degree of sulcation. There is no effacement of the cerebral sulci or basal subarachnoid cisterns. The globes are aphakic. The orbits are intact. The paranasal sinuses are clear. There is no fractu re of the calvarium. IMPRESSION: No acute intracranial abnormality. EVIDENCE OF ACUTE STROKE: NO. COMMENT: Quality ID # [id number]: Final reports with documentation of one or more dose reduction techniques (e.g., Automated exposure control, adjustment of the mA and/or kV according to patient size, use of iterative reconstruction technique) TECHNICAL DOCUMENTATION: JOB ID: [id number] 2010 [employer]- All Rights Reserved Reading location - IP/workstation name: [email or web address]-[email or web address]
[2020-01-06 14:04] LABS: ABSOLUTE EOSINOPHILS # (AUTO) 0.1 10^3/uL (0.0-0.6); ABSOLUTE LYMPHOCYTES (AUTO) 1.4 10^3/uL (0.5-4.7); ABSOLUTE MONOCYTES (AUTO) 0.5 10^3/uL (0.1-1.4); ABSOLUTE NEUT (AUTO) 5.6 10^3/uL (1.7-8.2); BASOPHILS % (AUTO) 0.2 % (0-2); EOSINOPHILS % (AUTO) 1.4 % (0-6); HEMATOCRIT 37.9 % (36.0-47.0); HEMOGLOBIN 12.6 g/dL (12.0-15.5); LYMPHOCYTES % (AUTO) 18.4 % (13-45); MEAN CORPUSCULAR HGB CONC 33.3 g/dL (32.0-36.0); MEAN CORPUSCULAR VOLUME 93 fl (80-97); MONOCYTES % (AUTO) 7.1 % (3-13); PLATELET COUNT 333 10^3/uL (150-450); RED BLOOD COUNT 4.07 10^6/uL (3.72-5.28); RED CELL DISTRIBUTION WIDTH 14.7 % (11.5-14.0); SEGMENTED NEUTROPHILS % (AUTO) 72.9 % (42-78); TOTAL CELLS COUNTED % (AUTO) 100 %; WHITE BLOOD COUNT 7.7 10^3/uL (4.0-10.5)
--- NOTE | 2020-01-06 14:17 | RADIOLOGY REPORT (SQ) ---
EXAM DESCRIPTION: CHEST SINGLE VIEW IMAGES COMPLETED DATE/TIME: 01/06/2020 2:10 pm REASON FOR STUDY: Syncope COMPARISON: AP view of the chest from 12/06/2019. EXAM PARAMETERS: NUMBER OF VIEWS: One view. TECHNIQUE: An AP view of the chest was obtained. RADIATION DOSE: NA LIMITATIONS: None. FINDINGS: LUNGS AND PLEURA: No consolidation, pleural effusion or pneumothorax. MEDIASTINUM AND HILAR STRUCTURES: No mediastinal or hilar contour abnormality. HEART AND VASCULAR STRUCTURES: The cardiac silhouette is enlarged. BONES: No acute findings. HARDWARE: Sternotomy wires. OTHER: No other finding. IMPRESSION: Low inspiratory lung volumes and cardiomegaly without a superimposed acute cardiopulmona ry process. TECHNICAL DOCUMENTATION: JOB ID: [id number] 2010 [employer]- All Rights Reserved Reading location - IP/workstation name: [email or web address]
[2020-01-06 14:23] LABS: ALBUMIN 4.4 g/dL (3.5-5.0); ALKALINE PHOSPHATASE 210 U/L (38-126); ANION GAP 11 (5-19); ASPARTATE AMINO TRANSFERASE 19 U/L (14-36); BILIRUBIN,DIRECT 0.2 mg/dL (0.0-0.4); BILIRUBIN,TOTAL 0.7 mg/dL (0.2-1.3); BLOOD UREA NITROGEN 21 mg/dL (7-20); CALCIUM 9.6 mg/dL (8.4-10.2); CARBON DIOXIDE 31 mmol/L (22-30); CHLORIDE 97 mmol/L (98-107); CREATINE KINASE 75 U/L (30-135); GLUCOSE 381 mg/dL (75-110); POTASSIUM 4.6 mmol/L (3.6-5.0); TOTAL PROTEIN 7.4 g/dL (6.3-8.2)
[2020-01-06 14:34] LABS: INTERNATIONAL RATION (INR) 0.86; PROTHROMBIN TIME 11.9 SEC (11.4-15.4)
[2020-01-06 14:35] LABS: PARTIAL THROMBOPLASTIN TIME 26.9 SEC (23.5-35.8)
[2020-01-06 14:38] LABS: CREATINE KINASE MB 0.98 ng/mL (<4.55)
[2020-01-06 14:39] LABS: TROPONIN I < 0.012 ng/mL
--- NOTE | 2020-01-06 15:12 | ER Document Report ---
ED General - General Chief Complaint: Syncope Stated Complaint: SYNCOPE Time Seen by Provider: 01/06/20 13:10 Mode of Arrival: Ambulatory Information source: Patient Notes: ED Medical Screen (Donato uriostegui last month) - General Chief Complaint: Numbness of Arm Stated Complaint: LEFT ARM PAIN/MOUTH TWITCHING/CHEST TIGHTNESS Time Seen by Provider: 12/06/19 02:53 Notes: 64-year-old female with more than 1 complaint. First complaint is that she started feeling pain in her right shoulder area that felt sharp with radiating pain down her arm and shooting tingling sensation in her hand. She also started feeling chest pressure at the time, she states she also developed a headache at that time. She also had twitching on her left side of her mouth, but denies facial drooping. She states she was almost at bingo so she went anyway but she continued to feel this and became concerned. This was before 5 PM. She states her headache resolved, she still has intermittent discomfort and tingling in her right arm. Patient has had a CABG and had a stroke 2 months ago, states she is taking baby aspirin. 01/06/20 13:10 - ED Nursing Note by NIHARIKA HIRSCH Acct Num: [id number] : 1955 Patient Age: 64 Pt arrives to Er today for c/o syncope episode at her home today prior to arrival pt states she does not remember what happened, pt states she went to bathroom and came back and next think she knew she woke up on the floor. pt states she was on her knees when she woke up, pt c/o pain in both knees, pt is alert and oriented x4 skin warm and dry respirations even and unlabored. ED Medical Screen (Jeffery uriostegui) - General Chief Complaint: Syncope Stated Complaint: SYNCOPE Time Seen by Provider: 01/06/20 13:10 Mode of Arrival: Ambulatory Information source: Patient Notes: 64-year-old female presented to ED for syncopal episode at home. She states she woke up this morning took her medicines went to the bathroom felt a little dizzy and unsteady and then the next thing she knows she woke up in the floor in a different room. She states she injured both knees but she is able to walk. She states she does have a history of a cardiac arrest with a 5 way bypass stroke blood pressure stroke and diabetes. She is on multiple blood pressure medicine she is on Brilinta states she is also on a shot that she takes once a week but she does not remember the name of that. She is alert oriented answering questions appropriately at this time. My Notes 64-year-old black female arrives with chief complaint of having high blood sugar and supposed to have a self injected shot weekly but cannot see well enough in order to mix the solvent and the bottle with sediment together well in order to inject herself. She cannot recall the name of her physician. She has a pocketbook that has several medications to include Coreg atorvastatin iron Giardia Lasix Brilinta and aspirin. Her CT of head was negative today and chest x-ray reveals cardiomegaly but otherwise within normal limits. Patient had a 319 glucose and alkaline phosphatase of 210. Patient reports this morning she took her medications and went to the bathroom but cannot recall going to another room or passing out. She awoke on the floor of another room. Patient has a respiratory rate of 23 but has no problems speaking or moving her neck. Patient had a right neck stent placed this year. TRAVEL OUTSIDE OF THE [place] IN LAST 30 DAYS: No - HPI Onset: Just prior to arrival Onset/Duration: Sudden, Better Quality of pain: No pain Severity: None Pain Level: Denies Associated symptoms: None Exacerbated by: Denies Relieved by: Denies Similar symptoms previously: No Recently seen / treated by doctor: No - Related Data Allergies/Adverse Reactions: No Known Allergies Allergy (Verified 09/17/16 15:46) Past Medical History - General Information source: Patient - Social History Smoking Status: Never Smoker Cigarette use (# per day): No Chew tobacco use (# tins/day): No Smoking Education Provided: No Frequency of alcohol use: None Drug Abuse: None Family History: CAD, CVA, DM Patient has suicidal ideation: No Patient has homicidal ideation: No - Past Medical History Cardiac Medical History: Reports: Hx Congestive Heart Failure, Hx Coronary Artery Disease, Hx Hypercholesterolemia, Hx Hypertension Denies: Hx DVT, Hx Heart Attack, Hx Pulmonary Embolism Pulmonary Medical History: Reports: Hx Asthma, Hx Bronchitis, Hx COPD Denies: Hx Pneumonia Neurological Medical History: Reports: Hx Cerebrovascular Accident - several years ago/no residual effects. Denies: Hx Seizures Endocrine Medical History: Reports: Hx Diabetes Mellitus Type 2. Denies: Hx Hyperthyroidism, Hx Hypothyroidism Renal/ Medical History: Denies: Hx Peritoneal Dialysis GI Medical History: Denies: Hx Cirrhosis, Hx Gastroesophageal Reflux Disease, Hx Hepatitis, Hx Hiatal Hernia, Hx Ulcer Musculoskeletal Medical History: Denies Hx Arthritis Psychiatric Medical History: Reports: Hx Depression - denies suicidal/homicidal ideation Infectious Medical History: Denies: Hx Hepatitis Past Surgical History: Reports: Hx Cardiac Catheterization, Hx Cardiac Surgery - CABG, Hx Section, Hx Coronary Artery Bypass Graft, Hx Hysterectomy, Hx Tubal Ligation. Denies: Hx Mastectomy, Hx Open Heart Surgery, Hx Pacemaker - Immunizations Hx Diphtheria, Pertussis, Tetanus Vaccination: No Physical Exam - Vital signs Vitals: Temp Pulse Resp BP Pulse Ox 98.0 F 78 24 H 128/68 H 96 01/06/20 13:03 01/06/20 13:03 01/06/20 13:03 01/06/20 13:03 01/06/20 13:03 Interpretation: Tachypneic - General General appearance: Appears well, Alert - HEENT Head: Normocephalic, Atraumatic Eyes: Normal Extraocular movements intact: Yes Eyelashes: Normal Pupils: PERRL Ears: Normal Sinus: Normal Nasal: Normal Mouth/Lips: Normal Mucous membranes: Normal Pharynx: Normal Neck: Normal, Other - No carotid bruits or masses noted. - Respiratory Respiratory status: No respiratory distress, Tachypnea Chest status: Nontender Breath sounds: Normal Chest palpation: Normal - Cardiovascular Rhythm: Regular Heart sounds: Normal auscultation Murmur: No - Abdominal Inspection: Normal Distension: No distension Bowel sounds: Normal Tenderness: Nontender Organomegaly: No organomegaly - Rectal Hemorrhoids: Other - deferred - Genitourinary Bimanuel exam: Other - deferred - Back Back: Normal - Extremities General upper extremity: Normal inspection General lower extremity: Normal inspection - Neurological Neuro grossly intact: Yes Cognition: Normal Orientation: AAOx4 Miller Coma Scale Eye Opening: Spontaneous Bernice Coma Scale Verbal: Oriented Miller Coma Scale Motor: Obeys Commands Bernice Coma Scale Total: 15 Speech: Normal Motor strength normal: LUE, RUE, LLE, RLE Sensory: Normal - Psychological Associated symptoms: Normal affect - Skin Skin Temperature: Warm Skin Moisture: Dry Course - Vital Signs Vital signs: Temp Pulse Resp BP Pulse Ox 98.0 F 74 15 137/48 H 96 01/06/20 13:03 01/06/20 14:55 01/06/20 19:01 01/06/20 19:01 01/06/20 19:01 - Laboratory Result Diagrams: 01/06/20 13:41 01/06/20 13:41 Laboratory results interpreted by me: 01/06/20 01/06/20 01/06/20 13:40 13:41 13:41 RDW 14.7 H Chloride 97 L Carbon Dioxide 31 H BUN 21 H Glucose 381 H POC Glucose 390 H Alkaline Phosphatase 210 H Urine Glucose (UA) 01/06/20 18:18 RDW Chloride Carbon Dioxide BUN Glucose POC Glucose Alkaline Phosphatase Urine Glucose (UA) >=500 H - Diagnostic Test Radiology reviewed: Reports reviewed - EKG with 57 bpm LVH with secondary repolarization abnormality. Critical Care Note - Critical Care Note Comments: I spoke with Dr. Driver at 1750 and he advises he will see the patient tomorrow in his office at 2 PM. He also advises he will do echo at that time.. He advised that if any further incidents occurs she may call him. On his cell phone. Phone number is [phone] Discharge - Discharge Clinical Impression: Atypical syncope, Hyperglycemia Condition: Good Disposition: HOME, SELF-CARE Additional Instructions: I spoke with Dr. Driver at 1750 and he advises he will see you tomorrow in his o ffice at 2 PM. He also advises he will do echo at that time.. He advised that if any further incidents occurs she may call him. On his cell phone. Phone number is [phone] Prescriptions: Glyburide/Metformin HCl [Glyburide-Metformin 5-500 mg] 1 each PO DAILY #15 tabl et
--- NOTE | 2020-01-06 18:52 | RADIOLOGY REPORT (SQ) ---
EXAM DESCRIPTION: CT CERVICAL SPINE WITHOUT IMAGES COMPLETED DATE/TIME: 01/06/2020 6:13 pm REASON FOR STUDY: Syncope COMPARISON: None. TECHNIQUE: Axial images acquired through the cervical spine without intravenous contrast. Images re viewed with lung, soft tissue and bone windows. Reconstructed coronal and sagittal MPR images review ed. Images stored on PACS. All CT scanners at this facility use dose modulation, iterative reconstruction, and/or weight based d osing when appropriate to reduce radiation dose to as low as reasonably achievable (ALARA). [facility]: Dose Right [facility]: CareDose [facility]: Dose Right [facility]: Teradose 4D [facility]: [employer] RADIATION DOSE: CT Rad equipment meets quality standard of care and radiation dose reduction techniq ues were employed. CTDIvol: 19.8 mGy. DLP: 342 mGy-cm. mGy. LIMITATIONS: None. FINDINGS: ALIGNMENT: Anatomic. MINERALIZATION: Normal. VERTEBRAL BODIES: No fractures or dislocation. DISCS: No significant disc disease. FACETS, LATERAL MASSES, POSTERIOR ELEMENTS: No fractures. No dislocation. No acute findings. HARDWARE: None in the spine. VISUALIZED RIBS: No fractures. LUNG APICES AND SOFT TISSUES: No significant or acute findings. OTHER: No other significant finding. IMPRESSION: NO ACUTE OR SIGNIFICANT FINDINGS IN THE CERVICAL SPINE. TECHNICAL DOCUMENTATION: JOB ID: [id number] Quality ID # [id number]: Final reports with documentation of one or more dose reduction techniques (e.g., Au tomated exposure control, adjustment of the mA and/or kV according to patient size, use of iterative reconstruction technique) 2010 [employer]- All Rights Reserved Reading location - IP/workstation name: [email or web address]
[2020-01-06 18:58] LABS: APPEARANCE,URINE CLEAR; BILIRUBIN,URINE NEGATIVE (NEGATIVE); COLOR,URINE STRAW; GLUCOSE, URINE >=500 mg/dL (NEGATIVE); KETONES,URINE NEGATIVE (NEGATIVE); LEUKOCYTE ESTERASE,URINE NEGATIVE (NEGATIVE); NITRITE,URINE NEGATIVE (NEGATIVE); PROTEIN,URINE NEGATIVE (NEGATIVE); URINE SPECIFIC GRAVITY 1.027; UROBILINOGEN,URINE NEGATIVE mg/dL (<2.0)
[2020-01-06 19:26] VITALS: BP 137/48
--- NOTE | 2020-01-06 23:37 | EKG REPORT ---
SEVERITY:- ABNORMAL ECG - SINUS RHYTHM LVH WITH SECONDARY REPOLARIZATION ABNORMALITY : Confirmed by: Marylin Cavazos MD 06-Jan-2020 23:36:09
== END 2020-01-06 19:29 | disposition home or self-care (01) ==
LOC: ER 12:59
DX: R55 Syncope and collapse (principal); E11.65 Type 2 diabetes mellitus with hyperglycemia; M25.561 Pain in right knee; M25.562 Pain in left knee; I11.0 Hypertensive heart disease with heart failure; I50.9 Heart failure, unspecified; E78.00 Pure hypercholesterolemia, unspecified; I25.10 Atherosclerotic heart disease of native coronary artery without angina pectoris; J44.9 Chronic obstructive pulmonary disease, unspecified; Z79.82 Long term (current) use of aspirin; Z79.02 Long term (current) use of antithrombotics/antiplatelets; Z79.899 Other long term (current) drug therapy; Z86.73 Personal history of transient ischemic attack (TIA), and cerebral infarction without residual deficits; Z95.5 Presence of coronary angioplasty implant and graft; Z86.74 Personal history of sudden cardiac arrest
CPT/HCPCS: 36415; 70450; 71045; 72125; 80053; 81001; 82550; 82553; 82962; 84484; 85025; 85379; 85610; 85730; 93005; 93010; 99285

== ENCOUNTER 2020-03-31 14:27 | Inpatient (IN) | payer MEDICAID ==
--- NOTE | 2020-03-31 15:09 | ER Document Report ---
ED Medical Screen (RME) - General Chief Complaint: Chest Pressure Stated Complaint: CHEST PRESSURE Time Seen by Provider: 03/31/20 14:58 TRAVEL OUTSIDE OF THE [place] IN LAST 30 DAYS: No - HPI Notes: Patient is a 64 y/o female with a hx of CABG, CHF, and DM who presents with substernal chest pressure that began three days ago. She reports shortness of breath but denies cough and syncope. Patient has not been compliant with some of her medications because she doesn't like the way they make her feel. Patient has an appointment with her primary care provider on April 23. - Related Data Allergies/Adverse Reactions: No Known Allergies Allergy (Verified 03/31/20 14:54) Past Medical History - Past Medical History Cardiac Medical History: Reports: Hx Congestive Heart Failure, Hx Coronary Artery Disease, Hx Hypercholesterolemia, Hx Hypertension Denies: Hx DVT, Hx Heart Attack, Hx Pulmonary Embolism Pulmonary Medical History: Reports: Hx Asthma, Hx Bronchitis, Hx COPD Denies: Hx Pneumonia Neurological Medical History: Reports: Hx Cerebrovascular Accident - several years ago/no residual effects. Denies: Hx Seizures Endocrine Medical History: Reports: Hx Diabetes Mellitus Type 2. Denies: Hx Hyperthyroidism, Hx Hypothyroidism Renal/ Medical History: Denies: Hx Peritoneal Dialysis GI Medical History: Denies: Hx Cirrhosis, Hx Gastroesophageal Reflux Disease, Hx Hepatitis, Hx Hiatal Hernia, Hx Ulcer Musculoskeltal Medical History: Denies Hx Arthritis Psychiatric Medical History: Reports: Hx Depression - denies suicidal/homicidal ideation Infectious Medical History: Denies: Hx Hepatitis Past Surgical History: Reports: Hx Cardiac Catheterization, Hx Cardiac Surgery - CABG, Hx Section, Hx Coronary Artery Bypass Graft, Hx Hysterectomy, Hx Tubal Ligation. Denies: Hx Mastectomy, Hx Open Heart Surgery, Hx Pacemaker - Immunizations Hx Diphtheria, Pertussis, Tetanus Vaccination: No Physical Exam - Vital signs Vitals: Temp Pulse Resp BP Pulse Ox 97.9 F 91 24 H 209/93 H 95 03/31/20 14:42 03/31/20 14:42 03/31/20 14:42 03/31/20 14:42 03/31/20 14:42 - Respiratory Respiratory status: No respiratory distress Breath sounds: Normal - Cardiovascular Rhythm: Regular Heart sounds: Normal auscultation Course - Re-evaluation Re-evalutation: I have greeted and performed a rapid initial assessment of this patient. A [facility] prehensive ED assessment and evaluation of the patient, analysis of test results and completion of medical decision making process will be conducted by an additional ED providers. - Vital Signs Vital signs: Temp Pulse Resp BP Pulse Ox 97.9 F 91 24 H 209/93 H 95 03/31/20 14:42 03/31/20 14:42 03/31/20 14:42 03/31/20 14:42 03/31/20 14:42
--- NOTE | 2020-03-31 15:30 | RADIOLOGY REPORT (SQ) ---
EXAM DESCRIPTION: CHEST SINGLE VIEW IMAGES COMPLETED DATE/TIME: 03/31/2020 3:23 pm REASON FOR STUDY: chest pain COMPARISON: 01/06/2020. EXAM PARAMETERS: NUMBER OF VIEWS: One view. TECHNIQUE: Single frontal radiographic view of the chest acquired. RADIATION DOSE: NA LIMITATIONS: None. FINDINGS: LUNGS AND PLEURA: No opacities, masses or pneumothorax. No pleural effusion. MEDIASTINUM AND HILAR STRUCTURES: No masses. Contour normal. HEART AND VASCULAR STRUCTURES: Heart upper limits of normal in size. Normal vasculature. BONES: No acute findings. HARDWARE: Sternotomy wires. OTHER: No other significant finding. IMPRESSION: NO ACUTE RADIOGRAPHIC FINDING IN THE CHEST. TECHNICAL DOCUMENTATION: JOB ID: [id number] 2010 [employer]- All Rights Reserved Reading location - IP/workstation name: [email or web address]
[2020-03-31] MEDS ORDERED: IPRATROPIUM/ALBUTEROL 0.5-2.5 MG/3 ML AMPUL NEB ONE (16:07)
[2020-03-31 16:18] LABS: ABSOLUTE EOSINOPHILS # (AUTO) 0.2 10^3/uL (0.0-0.6); ABSOLUTE LYMPHOCYTES (AUTO) 1.8 10^3/uL (0.5-4.7); ABSOLUTE MONOCYTES (AUTO) 0.5 10^3/uL (0.1-1.4); ABSOLUTE NEUT (AUTO) 5.3 10^3/uL (1.7-8.2); BASOPHILS % (AUTO) 0.4 % (0-2); EOSINOPHILS % (AUTO) 2.5 % (0-6); HEMATOCRIT 41.1 % (36.0-47.0); HEMOGLOBIN 13.7 g/dL (12.0-15.5); LYMPHOCYTES % (AUTO) 22.5 % (13-45); MEAN CORPUSCULAR HEMOGLOBIN 30.4 pg (27.0-33.4); MEAN CORPUSCULAR HGB CONC 33.3 g/dL (32.0-36.0); MEAN CORPUSCULAR VOLUME 91 fl (80-97); MONOCYTES % (AUTO) 5.9 % (3-13); PLATELET COUNT 294 10^3/uL (150-450); RED BLOOD COUNT 4.51 10^6/uL (3.72-5.28); SEGMENTED NEUTROPHILS % (AUTO) 68.7 % (42-78); TOTAL CELLS COUNTED % (AUTO) 100 %; WHITE BLOOD COUNT 7.8 10^3/uL (4.0-10.5)
[2020-03-31 16:24] LABS: ALBUMIN 4.3 g/dL (3.5-5.0); ALKALINE PHOSPHATASE 168 U/L (38-126); ANION GAP 10 (5-19); ASPARTATE AMINO TRANSFERASE 17 U/L (14-36); BILIRUBIN,DIRECT 0.2 mg/dL (0.0-0.4); BILIRUBIN,TOTAL 0.9 mg/dL (0.2-1.3); BLOOD UREA NITROGEN 13 mg/dL (7-20); CALCIUM 9.6 mg/dL (8.4-10.2); CARBON DIOXIDE 31 mmol/L (22-30); CHLORIDE 96 mmol/L (98-107); POTASSIUM 4.5 mmol/L (3.6-5.0); TOTAL PROTEIN 7.3 g/dL (6.3-8.2)
[2020-03-31] MEDS ORDERED: METHYLPREDNISOLONE INJ 125 MG/2 ML SDV IV ONE ×2 (16:28→16:29)
--- NOTE | 2020-03-31 16:33 | ER Document Report ---
ED General - General Chief Complaint: Chest Pain Stated Complaint: CHEST PRESSURE Time Seen by Provider: 03/31/20 14:58 Primary Care Provider: ROSANNE ZEPEDA [Primary Care Provider] - Follow up as needed Notes: HPI: 64-year-old female with extensive past medical history as recorded including COPD, heart failure, cardiomyopathy, blood pressure, and diabetes who presents today stating some 3 days of some shortness of breath with some wheezing. She states some anterior chest "pressure". She denies any calf pain or leg swelling. No recent trips or travel. She denies fever, vomiting, or diarrhea. Patient states she intermittently takes some of her medications because she does not "like the way they make me feel". History of cocaine abuse. She denies any cocaine at this time. ROS: See HPI All other review of systems reviewed and otherwise negative Reviewed vital signs and nursing note as charted by RN. PHYSICAL EXAM: CONSTITUTIONAL: Alert and oriented and responds appropriately to questions. Well-appearing; well-nourished HEAD: Normocephalic; atraumatic EYES: PERRL; Conjunctivae clear, sclerae non-icteric ENT: Normal nose; no rhinorrhea; moist mucous membranes; pharynx without lesions noted NECK: Supple without meningismus; non-tender; no cervical lymphadenopathy, no masses CARD: Regular rate and rhythm; no murmurs; symmetric distal pulses RESP: Normal chest excursion without splinting or tachypnea; breath sounds clear and equal bilaterally; bilateral expiratory wheezing without rhonchi or rales ABD/GI: Normal bowel sounds; non-distended; soft, non-tender BACK: The back appears normal and is non-tender to palpation EXT: Normal ROM in all joints; non-tender to palpation; no edema SKIN: No acute lesions noted NEURO: CN 2-12 intact; 5/5 bilateral upper and lower extremity strength with sensation intact to light touch PSYCH: The patient's mood and manner are appropriate. Grooming and personal hygiene are appropriate. TRAVEL OUTSIDE OF THE [place] IN LAST 30 DAYS: No - Related Data Allergies/Adverse Reactions: No Known Allergies Allergy (Verified 03/31/20 14:54) Past Medical History - Social History Smoking Status: Former Smoker Family History: CAD, CVA, DM - Past Medical History Cardiac Medical History: Reports: Hx Congestive Heart Failure, Hx Coronary Artery Disease, Hx Hypercholesterolemia, Hx Hypertension Denies: Hx DVT, Hx Heart Attack, Hx Pulmonary Embolism Pulmonary Medical History: Reports: Hx Asthma, Hx Bronchitis, Hx COPD Denies: Hx Pneumonia Neurological Medical History: Reports: Hx Cerebrovascular Accident - several years ago/no residual effects. Denies: Hx Seizures Endocrine Medical History: Reports: Hx Diabetes Mellitus Type 2. Denies: Hx Hyperthyroidism, Hx Hypothyroidism Renal/ Medical History: Denies: Hx Peritoneal Dialysis GI Medical History: Denies: Hx Cirrhosis, Hx Gastroesophageal Reflux Disease, Hx Hepatitis, Hx Hiatal Hernia, Hx Ulcer Musculoskeletal Medical History: Denies Hx Arthritis Psychiatric Medical History: Reports: Hx Depression - denies suicidal/homicidal ideation Infectious Medical History: Denies: Hx Hepatitis Past Surgical History: Reports: Hx Cardiac Catheterization, Hx Cardiac Surgery - CABG, Hx Section, Hx Coronary Artery Bypass Graft, Hx Hysterectomy, Hx Tubal Ligation. Denies: Hx Mastectomy, Hx Open Heart Surgery, Hx Pacemaker - Immunizations Hx Diphtheria, Pertussis, Tetanus Vaccination: No Physical Exam - Vital signs Vitals: Temp Pulse Resp BP Pulse Ox 97.9 F 91 24 H 209/93 H 95 03/31/20 14:42 03/31/20 14:42 03/31/20 14:42 03/31/20 14:42 03/31/20 14:42 Course - Re-evaluation Re-evalutation: Given the history and physical examination, I will provide a nebulizer given the wheezing with a history of COPD. Given that the patient has most probably been noncompliant with medications I will provide hydralazine. I will stay away currently from beta-blockers given the history of cocaine abuse. Patient denies any pain currently. No radiation to her back. History of COPD with wheezing. I do believe dissection and PE to be unlikely at this moment. Patient has no lower extremity edema and is speaking in complete sentences. I do not detect any rails. I feel flash pulmonary edema to be unlikely given the well appearance and the oxygen saturation is recorded. 03/31/20 16:32 EKG shows a rate of 86, normal sinus rhythm, normal axis, LVH with inverted T waves in leads I, aVL, V4 through V6. Poor R wave progression. I did compare this EKG to the previous one in December showing no obvious appreciable change. 03/31/20 17:02 Blood glucose as recorded. A liter of fluid has been given. I treated the patient with hydralazine given my concern about the possibility of cocaine. Urine drug screen is pending. Wheezing has improved with the nebulizer. X-ray of the chest shows no obvious infiltrate. Troponin as recorded. BNP as recorded. I did discuss the case with the hospitalist to admit the patient for further evaluation and treatment. - Vital Signs Vital signs: Temp Pulse Resp BP Pulse Ox 97.9 F 91 24 H 209/93 H 95 03/31/20 14:42 03/31/20 14:42 03/31/20 14:42 03/31/20 14:42 03/31/20 14:42 - Laboratory Result Diagrams: 03/31/20 15:10 03/31/20 15:10 Laboratory results interpreted by me: 03/31/20 03/31/20 15:10 15:10 Chloride 96 L Carbon Dioxide 31 H Glucose 408 H* Alkaline Phosphatase 168 H NT-Pro-B Natriuret Pep 220 H Discharge - Discharge Clinical Impression: Hypertensive emergency, Hyperglycemia, Non compliance with medical treatment, Wheezing Chest pain Qualifiers: Chest pain type: unspecified Qualified Code(s): R07.9 - Chest pain, unspecified Condition: Fair Disposition: ADMITTED INPATIENT Admitting Provider: Magdy (Hospitalist) Unit Admitted: Telemetry Referrals: LOCALMD,NO [Primary Care Provider] - Follow up as needed
[2020-03-31 16:36] LABS: GLUCOSE 408 mg/dL (75-110); NT PRO BNP 220 pg/mL (<125)
[2020-03-31 16:37] LABS: TROPONIN I < 0.012 ng/mL
[2020-03-31] MEDS ORDERED: NORMAL SALINE 1000 ML 1,000 ML IV ONE (16:52)
[2020-03-31] MEDS ORDERED: ASPIRIN 325 MG TABLET PO ONE (17:02)
[2020-03-31] MEDS: IPRATROPIUM/ALBUTEROL 0.5-2.5 MG/3 ML AMPUL NEB SCH ×3 (17:19→21:03)
[2020-03-31] MEDS ORDERED: IPRATROPIUM/ALBUTEROL 0.5-2.5 MG/3 ML AMPUL NEB PRN (17:23)
[2020-03-31] MEDS ORDERED: GLUCAGON,HUMAN RECOMB 1 MG INJ IM PRN (17:23)
[2020-03-31] MEDS ORDERED: DEXTROSE 50%-WATER 25 GM/50 ML DISP.SYRIN IV PRN ×2 (17:23)
[2020-03-31] MEDS ORDERED: ACETAMINOPHEN 325 MG TABLET PO PRN (17:23)
[2020-03-31] MEDS ORDERED: DEXTROSE 40% GEL 15 GM TUBE PO PRN ×2 (17:23)
[2020-03-31] MEDS ORDERED: OXYCODONE-ACETAMINOPHEN 5-325 MG TABLET PO PRN (17:23)
[2020-03-31] MEDS ORDERED: TEMAZEPAM 7.5 MG CAPSULE PO PRN (17:23)
[2020-03-31] MEDS ORDERED: ONDANSETRON HCL INJ/PF 4 MG/2 ML SDV IV PRN (17:23)
[2020-03-31] MEDS ORDERED: MAGNESIUM HYDROXIDE SUSP 30 ML UDCUP PO PRN (17:23)
--- NOTE | 2020-03-31 17:57 | PDOC H&P ---
History of Present Illness Admission Date/PCP: 03/31/20 17:28 NO LOCALMD Patient complains of: Patient presents emergency room with complaints of chest pain, difficulty breathing and shortness of breath. She was found to be wheezing on arrival to the emergency room. She was treated with bronchodilators and she has been admitted for further work-up. History of Present Illness: BARAK EWING is a 64 year old female Patient presents emergency room with complaints of chest pain, difficulty breathing and shortness of breath. She was found to be wheezing on arrival to the emergency room. She was treated with bronchodilators and she has been admitted for further work-up. Patient admits to noncompliance with her medications. She states she does not like the way some of her medications make her feel and so she has not been taking them as prescribed. She was found to be hyperglycemic with a blood sugar of 406 and states that she sometimes take her medicine. My impression is that she is not really fully aware of her illnesses. Her main reason for coming to the ER today was because she was wheezing but denies any history of recent smoking. She apparently had a right carotid endarterectomy done [facility] she has not smoked since then. She was also found to be hypertensive in the emergency room with a blood pressure of 200/92. She was given some hydralazine and her blood pressure did come down to around 189/70. Complains of some tingling chest pain although none currently. EKG shows no acute ST changes her EKG is grossly similar to the one from December nonspecific T wave changes in inferior leads. Initial troponin is within normal. Chest x-ray is really not significant. The last echocardiogram on file is from December 2018 and at that time ejection fraction was 50% with no gross significant findings Past Medical History Cardiac Medical History: Reports: Congestive Heart Failure, Coronary Artery Disease, Hyperlipidema, Hypertension Denies: DVT, Myocardial Infarction, Pulmonary Embolism Pulmonary Medical History: Reports: Asthma, Bronchitis, Chronic Obstructive Pul monary Disease (COPD) Denies: Pneumonia Neurological Medical History: Denies: Seizures Endocrine Medical History: Reports: Diabetes Mellitus Type 2 Denies: Hyperthyroidism, Hypothyroidism GI Medical History: Denies: Cirrhosis, Gastroesophageal Reflux Disease, Hepatitis, Hiatal Hernia Musculoskeltal Medical History: Denies: Arthritis Psychiatric Medical History: Reports: Depression - denies suicidal/homicidal ideation Hematology: Denies: Anemia, Sickle Cell Disease Past Surgical History Past Surgical History: Reports: Cardiac Catheterization, Section, Coronary Artery Bypass Graft, Hysterectomy, Tubal Ligation, Vascular Surgery - Right carotid endarterectomy Denies: Amputation, Mastectomy, Pacemaker Social History Information Source: Patient Smoking Status: Former Smoker Frequency of Alcohol Use: Social Hx Recreational Drug Use: Yes Drugs: Cocaine Hx Prescription Drug Abuse: No - Advance Directive Resuscitation Status: Full Code Family History Family History: CAD, CVA, DM Parental Family History Reviewed: No Children Family History Reviewed: Yes Sibling(s) Family History Reviewed.: Yes Medication/Allergy Home Medications: Albuterol Sulfate [Proair HFA Inhalation Aerosol 8.5 gm MDI] 2 puff IH Q4HP PRN 02/16/19 Aspirin [Ecotrin 81 mg EC Tablet] 81 mg PO DAILY 02/16/19 Potassium Chloride [Klor-Con 10 Meq Tablet ER] 10 meq PO DAILY 02/16/19 Azithromycin 500 mg PO DAILY #5 tablet 02/17/19 Lisinopril [Prinivil 10 mg Tablet] 10 mg PO DAILY #30 tablet 02/17/19 Prednisone [Deltasone 20 mg Tablet] 40 mg PO DAILY #10 tablet 02/17/19 Glyburide/Metformin HCl [Glyburide-Metformin 5-500 mg] 1 each PO DAILY #15 t ablet 01/06/20 Allergies/Adverse Reactions: No Known Allergies Allergy (Verified 03/31/20 14:54) Review of Systems All systems: reviewed and no additional remarkable complaints except as stated Constitutional: ABSENT: fever(s), weakness Eyes: ABSENT: visual disturbances Nose, Mouth, and Throat: ABSENT: mouth pain Cardiovascular: PRESENT: chest pain. ABSENT: edema, palpitations Respiratory: ABSENT: cough, dyspnea, hemoptysis Gastrointestinal: ABSENT: abdominal pain, diarrhea, nausea, vomiting Genitourinary: ABSENT: difficulty urinating, hematuria Integumentary: ABSENT: lesions Neurological: ABSENT: abnormal gait, abnormal speech, confusion, dizziness, focal weakness, syncope Physical Exam Vital Signs: Temp Pulse Resp BP Pulse Ox 97.9 F 91 24 H 209/93 H 95 03/31/20 14:42 03/31/20 14:42 03/31/20 14:42 03/31/20 14:42 03/31/20 14:42 General appearance: PRESENT: no acute distress, well-developed, well-nourished Head exam: PRESENT: atraumatic, normocephalic Eye exam: PRESENT: PERRLA. ABSENT: scleral icterus Mouth exam: PRESENT: tongue midline Neck exam: ABSENT: carotid bruit, JVD, lymphadenopathy, thyromegaly Respiratory exam: PRESENT: rhonchi. ABSENT: rales, wheezes Cardiovascular exam: PRESENT: RRR, +S1, +S2. ABSENT: diastolic murmur, rubs, systolic murmur Pulses: PRESENT: normal dorsalis pedis pul Vascular exam: PRESENT: normal capillary refill - Occasional GI/Abdominal exam: PRESENT: normal bowel sounds, soft. ABSENT: distended, guarding, mass, organolmegaly, rebound, tenderness Rectal exam: PRESENT: deferred Extremities exam: PRESENT: full ROM. ABSENT: calf tenderness, clubbing, pedal edema Neurological exam: PRESENT: alert, awake, oriented to person, oriented to place, oriented to time, oriented to situation, CN II-XII grossly intact. ABSENT: motor sensory deficit Psychiatric exam: PRESENT: appropriate affect, normal mood. ABSENT: homicidal ideation, suicidal ideation Skin exam: PRESENT: dry, intact, warm. ABSENT: cyanosis, rash Results Laboratory Results: 03/31/20 15:10 03/31/20 15:10 03/31/20 03/31/20 15:10 15:10 WBC 7.8 RBC 4.51 Hgb 13.7 Hct 41.1 MCV 91 MCH 30.4 MCHC 33.3 RDW 14.0 Plt Count 294 Seg Neutrophils % 68.7 Sodium 137.0 Potassium 4.5 Chloride 96 L Carbon Dioxide 31 H Anion Gap 10 BUN 13 Creatinine 0.55 Est GFR ( Amer) > 60 Glucose 408 H* Calcium 9.6 Total Bilirubin 0.9 AST 17 Alkaline Phosphatase 168 H Total Protein 7.3 Albumin 4.3 03/31/20 15:10 Troponin I < 0.012 NT-Pro-B Natriuret Pep 220 H Impressions: Chest X-Ray 03/31/20 15:05 IMPRESSION: NO ACUTE RADIOGRAPHIC FINDING IN THE CHEST. Assessment and Plan - Diagnosis (1) Chest pain Qualifiers: Chest pain type: unspecified Qualified Code(s): R07.9 - Chest pain, unspecified Is this a current diagnosis for this admission?: Yes Plan: Chest pain likely related to poorly controlled hypertension. Serial troponins will be obtained. She is currently chest pain-free. (2) Hyperglycemia Is this a current diagnosis for this admission?: Yes Plan: Likely secondary to noncompliance. I will place her on sliding scale insulin as well as basal insulin for now (3) Hypertensive emergency Is this a current diagnosis for this admission?: Yes Plan: Blood pressure improved after parenteral hydralazine. She does have a history of drug abuse although she denies any currently at this time. Toxicology screen is pending. I will go ahead and start her on some metoprolol. Reviewing her chart it appears she only takes Lisinopril 10 mg daily (5) COPD exacerbation Is this a current diagnosis for this admission?: Yes Plan: Patient received bronchodilators as well as steroids in the emergency room. By the time I actually saw her she was no more wheezing. She has a history of heavy smoking until about 6 months ago also likely has COPD. In addition her blood pressure was out of control although chest x-ray does not show pulmonary vascular congestion. At any rate patient will be treated with bronchodilators and steroids - Time Time Spent with patient: 35 or more minutes Medications reviewed and adjusted accordingly: Yes Anticipated Discharge Disposition: Home, Self Care Anticipated Discharge Timeframe: within 48 hours
[2020-03-31 18:14] LABS: URINE AMPHETAMINES SCREEN NEGATIVE; URINE BARBITURATES SCREEN NEGATIVE; URINE BENZODIAZEPINES SCREEN NEGATIVE; URINE COCAINE SCREEN NEGATIVE; URINE MARIJUANA (THC) SCREEN NEGATIVE; URINE METHADONE SCREEN NEGATIVE; URINE PHENCYCLIDINE SCREEN NEGATIVE
[2020-03-31] MEDS: HYDRALAZINE HCL INJ/PF 20 MG/1 ML SDV IV PRN (19:36)
[2020-03-31] MEDS: INSULIN REG, HUMAN 100 UNIT/ML 3 ML VIAL (PYX) SUBCUT SCH (19:50)
[2020-03-31] MEDS ORDERED: MORPHINE SULFATE 10 MG/ML INJ IV ONE (20:38)
[2020-03-31] MEDS: NITROGLYCERIN 0.4 MG/TAB 25 TAB/BOTTLE SL PRN ×3 (20:51→21:09)
--- NOTE | 2020-03-31 21:04 | EKG REPORT ---
SEVERITY:- ABNORMAL ECG - SINUS RHYTHM PROBABLE LEFT ATRIAL ABNORMALITY LVH WITH SECONDARY REPOLARIZATION ABNORMALITY : Confirmed by: Marylin Cavazos MD 31-Mar-2020 21:03:46
[2020-03-31] MEDS ORDERED: INSULIN GLARGINE,HUM.REC.ANLOG 1,000 UNIT/10 ML VIAL SUBCUT SCH (22:00)
[2020-03-31] MEDS: ATORVASTATIN CALCIUM 40 MG TABLET PO SCH (22:41)
[2020-04-01] MEDS: HYDRALAZINE HCL INJ/PF 20 MG/1 ML SDV IV PRN (01:47)
[2020-04-01] MEDS: NITROGLYCERIN 0.4 MG/TAB 25 TAB/BOTTLE SL PRN (02:06)
[2020-04-01] MEDS: IPRATROPIUM/ALBUTEROL 0.5-2.5 MG/3 ML AMPUL NEB SCH ×4 (02:33→21:04)
[2020-04-01] MEDS ORDERED: MORPHINE SULFATE 10 MG/ML INJ ONE (02:36)
[2020-04-01 02:55] LABS: ABSOLUTE LYMPHOCYTES (AUTO) 0.9 10^3/uL (0.5-4.7); ABSOLUTE MONOCYTES (AUTO) 0.1 10^3/uL (0.1-1.4); ABSOLUTE NEUT (AUTO) 10.6 10^3/uL (1.7-8.2); BASOPHILS % (AUTO) 0.1 % (0-2); HEMATOCRIT 40.9 % (36.0-47.0); HEMOGLOBIN 13.4 g/dL (12.0-15.5); MEAN CORPUSCULAR HGB CONC 32.7 g/dL (32.0-36.0); MEAN CORPUSCULAR VOLUME 92 fl (80-97); PLATELET COUNT 315 10^3/uL (150-450); RED BLOOD COUNT 4.46 10^6/uL (3.72-5.28); RED CELL DISTRIBUTION WIDTH 13.9 % (11.5-14.0); SEGMENTED NEUTROPHILS % (AUTO) 90.9 % (42-78); TOTAL CELLS COUNTED % (AUTO) 100 %; WHITE BLOOD COUNT 11.6 10^3/uL (4.0-10.5)
[2020-04-01] MEDS ORDERED: MORPHINE SULFATE 10 MG/ML INJ IV ONE (03:00)
[2020-04-01 03:13] LABS: ANION GAP 12 (5-19); BLOOD UREA NITROGEN 20 mg/dL (7-20); CALCIUM 9.6 mg/dL (8.4-10.2); CARBON DIOXIDE 25 mmol/L (22-30); CHLORIDE 98 mmol/L (98-107); CHOLESTEROL 187.64 mg/dL (0-200); POTASSIUM 4.3 mmol/L (3.6-5.0); TRIGLYCERIDES 84 mg/dL (<150)
[2020-04-01 03:25] LABS: DIRECT LDL 125 mg/dL (<100)
[2020-04-01 03:28] LABS: GLUCOSE 503 mg/dL (75-110)
[2020-04-01] MEDS ORDERED: INSULIN REG, HUMAN 100 UNIT/ML 3 ML VIAL SUBCUT ONE (04:00)
[2020-04-01] MEDS: PANTOPRAZOLE SODIUM 40 MG TABLET.DR PO SCH (06:28)
[2020-04-01] MEDS: INSULIN REG, HUMAN 100 UNIT/ML 3 ML VIAL (PYX) SUBCUT SCH ×3 (08:33→17:02)
[2020-04-01] MEDS: DOCUSATE SODIUM 100 MG CAPSULE PO SCH (09:18)
[2020-04-01] MEDS: PREDNISONE 20 MG TABLET PO SCH (09:19)
[2020-04-01] MEDS: INSULIN GLARGINE,HUM.REC.ANLOG 1,000 UNIT/10 ML VIAL SUBCUT SCH ×2 (09:19→22:08)
[2020-04-01] MEDS: ENOXAPARIN SODIUM INJ 40 MG/0.4 ML DISP.SYRIN SUBCUT SCH (09:23)
[2020-04-01] MEDS ORDERED: ENALAPRILAT DIHYDRATE INJ/PF 1.25 MG/1 ML SDV IV PRN (12:40)
--- NOTE | 2020-04-01 12:48 | PDOC PROGRESS REPORT ---
Subjective Date:: 04/01/20 Subjective:: Patient says she is feeling better today. She apparently complained of chest pa in after receiving hydralazine IVOvernight and so I have discontinued the hydralazine. Blood pressure is improved. Troponins have been negative and she denies any chest pain at the time of my exam Reason For Visit: CHEST PAIN,HYPERTENSIVE EMERGENCY,HYPERGLYCEMIA Physical Exam Vital Signs: Temp Pulse Resp BP Pulse Ox 98.4 F 105 H 20 152/60 H 98 04/01/20 09:30 04/01/20 08:23 04/01/20 08:23 04/01/20 08:10 04/01/20 08:23 Intake & Output 03/31/20 04/01/20 04/02/20 06:59 06:59 06:59 Intake Total 1480 Balance 1480 Weight 85 kg General appearance: PRESENT: no acute distress, well-developed, well-nourished Head exam: PRESENT: atraumatic, normocephalic Eye exam: PRESENT: conjunctiva pink, EOMI, PERRLA. ABSENT: scleral icterus Ear exam: PRESENT: normal external ear exam Mouth exam: PRESENT: moist, tongue midline Neck exam: ABSENT: carotid bruit, JVD, lymphadenopathy, thyromegaly Respiratory exam: PRESENT: clear to auscultation sindy. ABSENT: rales, rhonchi, wheezes Cardiovascular exam: PRESENT: RRR, +S1, +S2. ABSENT: diastolic murmur, rubs, systolic murmur Pulses: PRESENT: normal dorsalis pedis pul Vascular exam: PRESENT: normal capillary refill GI/Abdominal exam: PRESENT: distended, normal bowel sounds, soft. ABSENT: guarding, mass, organolmegaly, rebound, tenderness Rectal exam: PRESENT: deferred Extremities exam: PRESENT: full ROM. ABSENT: calf tenderness, clubbing, pedal edema Neurological exam: PRESENT: alert, awake, oriented to person, oriented to place, oriented to time, oriented to situation, CN II-XII grossly intact. ABSENT: motor sensory deficit Psychiatric exam: PRESENT: appropriate affect, normal mood. ABSENT: homicidal ideation, suicidal ideation Skin exam: PRESENT: dry, intact, warm. ABSENT: cyanosis, rash Results Laboratory Results: 04/01/20 02:47 04/01/20 02:47 03/31/20 03/31/2020 15:10 15:10 02:47 WBC 7.8 11.6 H RBC 4.51 4.46 Hgb 13.7 13.4 Hct 41.1 40.9 MCV 91 92 MCH 30.4 30.0 MCHC 33.3 32.7 RDW 14.0 13.9 Plt Count 294 315 Seg Neutrophils % 68.7 90.9 H Sodium 137.0 Potassium 4.5 Chloride 96 L Carbon Dioxide 31 H Anion Gap 10 BUN 13 Creatinine 0.55 Est GFR ( Amer) > 60 Glucose 408 H* Calcium 9.6 Total Bilirubin 0.9 AST 17 Alkaline Phosphatase 168 H Total Protein 7.3 Albumin 4.3 Triglycerides Cholesterol LDL Cholesterol Direct VLDL Cholesterol HDL Cholesterol 04/01/20 02:47 WBC RBC Hgb Hct MCV MCH MCHC RDW Plt Count Seg Neutrophils % Sodium 135.2 L Potassium 4.3 Chloride 98 Carbon Dioxide 25 Anion Gap 12 BUN 20 Creatinine 0.60 Est GFR ( Amer) > 60 Glucose 503 H* Calcium 9.6 Total Bilirubin AST Alkaline Phosphatase Total Protein Albumin Triglycerides 84 Cholesterol 187.64 LDL Cholesterol Direct 125 H VLDL Cholesterol 17.0 HDL Cholesterol 55 03/31/20 03/31/20 04/01/20 15:10 21:05 02:47 Troponin I < 0.012 < 0.012 < 0.012 NT-Pro-B Natriuret Pep 220 H Impressions: Chest X-Ray 03/31/20 15:05 IMPRESSION: NO ACUTE RADIOGRAPHIC FINDING IN THE CHEST. Assessment and Plan - Diagnosis (1) Chest pain Qualifiers: Chest pain type: unspecified Qualified Code(s): R07.9 - Chest pain, unspecified Is this a current diagnosis for this admission?: Yes Plan: Chest pain likely related to poorly controlled hypertension. Serial troponins been negative she is currently chest pain-free. (2) Hyperglycemia Is this a current diagnosis for this admission?: Yes Plan: Likely secondary to noncompliance. Increased her Lantus insulin and also added preprandial coverage with Humalog. Patient will also benefit from asthma educator. He admits to noncompliance with her insulin. Hemoglobin A1c is greater than 14 Also she did receive 125 mg of Solu-Medrol in the emergency department and she is currently on oral steroids all this likely contributing to her hyperglycemia. (3) Hypertensive emergency Is this a current diagnosis for this admission?: Yes Plan: Blood pressure is improved though still suboptimal. Started on metoprolol orally. Further adjustments should be made depending on her subsequent blood pressure readings (4) Wheezing Is this a current diagnosis for this admission?: Yes Plan: Likely secondary to uncontrolled hypertension although there was no evidence of pulmonary vascular congestion. She likely also has COPD. She is on steroids and this could be tapered depending on her clinical course (5) COPD exacerbation Is this a current diagnosis for this admission?: Yes Plan: Patient received bronchodilators as well as steroids in the emergency room. By the time I actually saw her she was no more wheezing. She has a history of heavy smoking until about 6 months ago also likely has COPD. In addition her blood pressure was out of control although chest x-ray does not show pulmonary vascular congestion. At any rate patient will be treated with bronchodilators and steroids 04/01 continue with bronchodilators as well as steroids - Time Time Spent with patient: 15-24 minutes Medications reviewed and adjusted accordingly: Yes Anticipated Discharge Disposition: Home, Self Care Anticipated Discharge Timeframe: within 48 hours
[2020-04-01] MEDS: METOPROLOL SUCCINATE 25 MG TAB.SR.24H PO SCH ×2 (13:59→22:07)
[2020-04-01] MEDS: INSULIN LISPRO 100 UNIT/ML 3 ML VIAL SUBCUT SCH (17:02)
--- NOTE | 2020-04-01 19:01 | EKG REPORT ---
SEVERITY:- ABNORMAL ECG - SINUS RHYTHM LVH WITH SECONDARY REPOLARIZATION ABNORMALITY BORDERLINE PROLONGED QT INTERVAL : Confirmed by: Marylin Cavazos MD 01-Apr-2020 19:01:17
--- NOTE | 2020-04-01 19:01 | EKG REPORT ---
SEVERITY:- ABNORMAL ECG - SINUS RHYTHM LVH WITH SECONDARY REPOLARIZATION ABNORMALITY : Confirmed by: Marylin Cavazos MD 01-Apr-2020 19:01:11
[2020-04-01] MEDS: ATORVASTATIN CALCIUM 40 MG TABLET PO SCH (22:07)
[2020-04-02] MEDS: IPRATROPIUM/ALBUTEROL 0.5-2.5 MG/3 ML AMPUL NEB SCH ×2 (02:31→08:16)
[2020-04-02] MEDS: PANTOPRAZOLE SODIUM 40 MG TABLET.DR PO SCH (05:10)
[2020-04-02 05:48] LABS: ABSOLUTE LYMPHOCYTES (AUTO) 2.2 10^3/uL (0.5-4.7); ABSOLUTE MONOCYTES (AUTO) 0.8 10^3/uL (0.1-1.4); ABSOLUTE NEUT (AUTO) 8.8 10^3/uL (1.7-8.2); BASOPHILS % (AUTO) 0.3 % (0-2); EOSINOPHILS % (AUTO) 0.1 % (0-6); HEMATOCRIT 38.2 % (36.0-47.0); HEMOGLOBIN 12.5 g/dL (12.0-15.5); LYMPHOCYTES % (AUTO) 18.4 % (13-45); MEAN CORPUSCULAR HEMOGLOBIN 29.8 pg (27.0-33.4); MEAN CORPUSCULAR HGB CONC 32.8 g/dL (32.0-36.0); MEAN CORPUSCULAR VOLUME 91 fl (80-97); PLATELET COUNT 291 10^3/uL (150-450); RED CELL DISTRIBUTION WIDTH 14.1 % (11.5-14.0); SEGMENTED NEUTROPHILS % (AUTO) 74.2 % (42-78); TOTAL CELLS COUNTED % (AUTO) 100 %; WHITE BLOOD COUNT 11.9 10^3/uL (4.0-10.5)
[2020-04-02 06:10] LABS: ANION GAP 13 (5-19); BLOOD UREA NITROGEN 18 mg/dL (7-20); CARBON DIOXIDE 24 mmol/L (22-30); CHLORIDE 98 mmol/L (98-107); GLUCOSE 266 mg/dL (75-110); POTASSIUM 3.8 mmol/L (3.6-5.0)
[2020-04-02] MEDS: INSULIN REG, HUMAN 100 UNIT/ML 3 ML VIAL (PYX) SUBCUT SCH (08:19)
[2020-04-02] MEDS: INSULIN LISPRO 100 UNIT/ML 3 ML VIAL SUBCUT SCH (08:20)
[2020-04-02] MEDS: PREDNISONE 20 MG TABLET PO SCH (09:34)
[2020-04-02] MEDS: ENOXAPARIN SODIUM INJ 40 MG/0.4 ML DISP.SYRIN SUBCUT SCH (09:34)
[2020-04-02] MEDS: DOCUSATE SODIUM 100 MG CAPSULE PO SCH (09:34)
[2020-04-02] MEDS: METOPROLOL SUCCINATE 25 MG TAB.SR.24H PO SCH (09:34)
[2020-04-02] MEDS: INSULIN GLARGINE,HUM.REC.ANLOG 1,000 UNIT/10 ML VIAL SUBCUT SCH (09:35)
--- NOTE | 2020-04-02 10:58 | PDOC DISCHARGE SUMMARY ---
Impression - Admit/DC Date/PCP Admission Date/Primary Care Provider: 03/31/20 17:28 NO LOCALMD Discharge Date: 04/02/20 - Discharge Diagnosis (1) Chest pain Is this a current diagnosis for this admission?: Yes (2) COPD exacerbation Is this a current diagnosis for this admission?: Yes (3) Hyperglycemia Is this a current diagnosis for this admission?: Yes (4) Hypertensive emergency Is this a current diagnosis for this admission?: Yes (5) Wheezing Is this a current diagnosis for this admission?: Yes - Additional Information Resuscitation Status: Full Code Discharge Diet: Cardiac, Diabetic Discharge Activity: Activity As Tolerated Referrals: AWILDA LOAIZA MD [ACTIVE STAFF] - 04/12/20 11:30 am Prescriptions: Carvedilol [Coreg 12.5 mg Tablet] 12.5 mg PO Q12 #30 tablet Empagliflozin [Jardiance] 25 mg PO QAM #15 tab Potassium Chloride [Klor-Con 10 Meq Tablet ER] 10 meq PO DAILY #15 tab Insulin Glargine,Hum.rec.anlog [Lantus Insulin 100 Unit/mL Insulin Pen] 12 unit SUBCUT Q12 #4 pen Furosemide [Lasix 40 mg Tablet] 40 mg PO QAM #15 tab Atorvastatin Calcium [Lipitor 80 mg Tablet] 80 mg PO QHS #15 Atorvastatin Calcium [Lipitor 80 mg Tablet] 80 mg PO QHS #15 tablet Lisinopril 20 mg PO DAILY #15 tablet Metformin HCl 500 mg PO BID #30 tab Nitroglycerin [Nitrostat 0.4 mg (1/150 Gr) Tabs 25/Bottle] 1 tab SL Q5MP PRN #1 bottle PRN Reason: chest pain Budesonide/Formoterol Fumarate [Symbicort Hfa 80-4.5 Mcg Inhaler 6.9 gm] 2 puff IH Q12 #1 inhaler Home Medications: Albuterol Sulfate [Proair HFA Inhalation Aerosol 8.5 gm MDI] 2 puff IH Q4HP PRN 02/16/19 Aspirin [Ecotrin 81 mg EC Tablet] 81 mg PO DAILY 02/16/19 Ferrous Sulfate [Ferrousul] 325 mg PO DAILY 04/01/20 Multivit,Tx with Iron,Minerals [Thera-M] 1 each PO DAILY 04/01/20 Tiotropium [place] [Spiriva Respimat] 1 puff IH DAILY 04/01/20 Atorvastatin Calcium [Lipitor 80 mg Tablet] 80 mg PO QHS #15 04/02/20 Atorvastatin Calcium [Lipitor 80 mg Tablet] 80 mg PO QHS #15 tablet 04/02/20 Budesonide/Formoterol Fumarate [Symbicort Hfa 80-4.5 Mcg Inhaler 6.9 gm] 2 puff IH Q12 #1 inhaler 04/02/20 Carvedilol [Coreg 12.5 mg Tablet] 12.5 mg PO Q12 #30 tablet 04/02/20 Empagliflozin [Jardiance] 25 mg PO QAM #15 tab 04/02/20 Furosemide [Lasix 40 mg Tablet] 40 mg PO QAM #15 tab 04/02/20 Insulin Glargine,Hum.rec.anlog [Lantus Insulin 100 Unit/mL Insulin Pen] 12 unit SUBCUT Q12 #4 pen 04/02/20 Lisinopril 20 mg PO DAILY #15 tablet 04/02/20 Metformin HCl 500 mg PO BID #30 tab 04/02/20 Nitroglycerin [Nitrostat 0.4 mg (1/150 Gr) Tabs 25/Bottle] 1 tab SL Q5MP PRN #1 bottle 04/02/20 Potassium Chloride [Klor-Con 10 Meq Tablet ER] 10 meq PO DAILY #15 tab 04/02/20 History of Present Illiness History of Present Illness: BARAK EWING is a 64 year old female with complaints of chest pain, difficulty breathing and shortness of breath. She was found to be wheezing on arrival to the emergency room. She was treated with bronchodilators and she has been admitted for further work-up. Patient admits to noncompliance with her medications. She states she does not like the way some of her medications make her feel and so she has not been taking them as prescribed. She was found to be hyperglycemic with a blood sugar of 406 and states that she sometimes take her medicine. My impression is that she is not really fully aware of her illnesses. Her main reason for coming to the ER today was because she was wheezing but denies any history of recent sm oking. She apparently had a right carotid endarterectomy done in says she has not smoked since then. She was also found to be hypertensive in the emergency room with a blood pressure of 200/92. She was given some hydralazine and her blood pressure did come down to around 189/70. Complains of some tingling chest pain although none currently. EKG shows no acute ST changes her EKG is grossly similar to the one from December nonspecific T wave changes in inferior leads. Initial troponin is within normal. Chest x-ray is really not significant. The last echocardiogram on file is from December 2018 and at that time ejection fraction was 50% with no gross significant findings Hospital Course Hospital Course: Unremarkable hospital course. Blood pressure is better as her troponins are all less than 0.012. No further chest pain. Patient is most likely noncompliant. She could not tell me her medications. She could not even tell me her primary care provider. Stable for discharge with a streamline medication list until she sees Dr. Driver later this week. We will also utilize Lantus pens. Physical Exam Vital Signs: Temp Pulse Resp BP Pulse Ox 97.6 F 77 15 150/76 H 91 L 04/02/20 10:00 04/02/20 08:16 04/02/20 08:16 04/02/20 08:13 04/02/20 08:16 Intake & Output 04/01/20 04/02/20 04/03/20 06:59 06:59 06:59 Intake Total 1480 980 Output Total 1 Balance 1480 979 Weight 85 kg 86.2 kg General appearance: PRESENT: no acute distress Respiratory exam: PRESENT: clear to auscultation sindy, symmetrical, unlabored. ABSENT: tachypnea, wheezes Cardiovascular exam: PRESENT: RRR, +S1, +S2 GI/Abdominal exam: PRESENT: normal bowel sounds, soft. ABSENT: tenderness Results Laboratory Results: WBC 11.9 10^3/uL (4.0-10.5) H 04/02/20 05:11 RBC 4.20 10^6/uL (3.72-5.28) 04/02/20 05:11 Hgb 12.5 g/dL (12.0-15.5) 04/02/20 05:11 Hct 38.2 % (36.0-47.0) 04/02/20 05:11 MCV 91 fl (80-97) 04/02/20 05:11 MCH 29.8 pg (27.0-33.4) 04/02/20 05:11 MCHC 32.8 g/dL (32.0-36.0) 04/02/20 05:11 RDW 14.1 % (11.5-14.0) H 04/02/20 05:11 Plt Count 291 10^3/uL (150-450) 04/02/20 05:11 Lymph % (Auto) 18.4 % (13-45) 04/02/20 05:11 [place] % (Auto) 7.0 % (3-13) 04/02/20 05:11 Eos % (Auto) 0.1 % (0-6) 04/02/20 05:11 Baso % (Auto) 0.3 % (0-2) 04/02/20 05:11 Absolute Neuts (auto) 8.8 10^3/uL (1.7-8.2) H 04/02/20 05:11 Absolute Lymphs (auto) 2.2 10^3/uL (0.5-4.7) 04/02/20 05:11 Absolute Monos (auto) 0.8 10^3/uL (0.1-1.4) 04/02/20 05:11 Absolute Eos (auto) 0.0 10^3/uL (0.0-0.6) 04/02/20 05:11 Absolute Basos (auto) 0.0 10^3/uL (0.0-0.2) 04/02/20 05:11 Seg Neutrophils % 74.2 % (42-78) 04/02/20 05:11 Sodium 135.4 mmol/L (137-145) L 04/02/20 05:11 Potassium 3.8 mmol/L (3.6-5.0) 04/02/20 05:11 Chloride 98 mmol/L (98-107) 04/02/20 05:11 Carbon Dioxide 24 mmol/L (22-30) 04/02/20 05:11 Anion Gap 13 (5-19) 04/02/20 05:11 BUN 18 mg/dL (7-20) 04/02/20 05:11 Creatinine 0.53 mg/dL (0.52-1.25) 04/02/20 05:11 Est GFR ( Amer) > 60 (>60) 04/02/20 05:11 Est GFR (MDRD) Non-Af > 60 (>60) 11/23/20 05:11 Glucose 266 mg/dL (75-110) H 04/02/20 05:11 POC Glucose 283 mg/dL (70-110) H 04/02/20 08:15 Hemoglobin A1c % > 14.0 % (4.7-6.0) H 04/01/20 02:47 Calcium 8.0 mg/dL (8.4-10.2) L 04/02/20 05:11 Total Bilirubin 0.9 mg/dL (0.2-1.3) 03/31/20 15:10 Direct Bilirubin 0.2 mg/dL (0.0-0.4) 03/31/20 15:10 Neonat Total Bilirubin Not Reportable 03/31/20 15:10 Neonat Direct Bilirubin Not Reportable 03/31/20 15:10 Neonat Indirect Bili Not Reportable 03/31/20 15:10 AST 17 U/L (14-36) 03/31/20 15:10 ALT 22 U/L (<35) 03/31/20 15:10 Alkaline Phosphatase 168 U/L (38-126) H 03/31/20 15:10 Troponin I < 0.012 ng/mL 04/01/20 11:30 NT-Pro-B Natriuret Pep 220 pg/mL (<125) H 03/31/20 15:10 Total Protein 7.3 g/dL (6.3-8.2) 03/31/20 15:10 Albumin 4.3 g/dL (3.5-5.0) 03/31/20 15:10 Triglycerides 84 mg/dL (<150) 04/01/20 02:47 Cholesterol 187.64 mg/dL (0-200) 04/01/20 02:47 LDL Cholesterol Direct 125 mg/dL (<100) H 04/01/20 02:47 VLDL Cholesterol 17.0 mg/dL (10-31) 04/01/20 02:47 HDL Cholesterol 55 mg/dL (>40) 04/01/20 02:47 Urine Opiates Screen NEGATIVE 03/31/20 17:25 Urine Methadone Screen NEGATIVE 03/31/20 17:25 Ur Barbiturates Screen NEGATIVE 03/31/20 17:25 Ur Phencyclidine Scrn NEGATIVE 03/31/20 17:25 Ur Amphetamines Screen NEGATIVE 03/31/20 17:25 U Benzodiazepines Scrn NEGATIVE 03/31/20 17:25 Urine Cocaine Screen NEGATIVE 03/31/20 17:25 U Marijuana (THC) Screen NEGATIVE 03/31/20 17:25 03/31/20 03/31/20 04/01/20 15:10 21:05 02:47 Troponin I < 0.012 < 0.012 < 0.012 NT-Pro-B Natriuret Pep 220 H 04/01/20 11:30 Troponin I < 0.012 NT-Pro-B Natriuret Pep Impressions: Chest X-Ray 03/31/20 15:05 IMPRESSION: NO ACUTE RADIOGRAPHIC FINDING IN THE CHEST. Plan Health Concerns: Noncompliance in a patient with diabetes, uncontrolled hypertension and hyperlipidemia as well as probable COPD Plan of Treatment: Streamline medications as outlined above until she sees cardiology and she needs to see her primary care provider. She needs a dedicated regimen and she needs to be compliant. Goals: Establish appropriate medication regimen to treat her multiple comorbidities Time Spent: Greater than 30 Minutes Stroke Is this a Stroke Patient?: No Acute Heart Failure Is this a Heart Failure Patient?: No
[2020-04-02 12:04] VITALS: BP 157/71
== END 2020-04-02 12:15 | disposition home or self-care (01) | DRG 305 ==
LOC: ER 14:27 → EH 17:28 → 3S 23:16
PROVIDERS: ADMIT Internal Medicine; ATTEND Hospitalist
DX: I16.1 Hypertensive emergency (principal); J44.1 Chronic obstructive pulmonary disease with (acute) exacerbation; Z91.14 Patient's other noncompliance with medication regimen; E11.65 Type 2 diabetes mellitus with hyperglycemia; Z87.891 Personal history of nicotine dependence; I25.10 Atherosclerotic heart disease of native coronary artery without angina pectoris; Z95.1 Presence of aortocoronary bypass graft; Z82.49 Family history of ischemic heart disease and other diseases of the circulatory system; Z83.3 Family history of diabetes mellitus; Z82.3 Family history of stroke; Z79.4 Long term (current) use of insulin; E78.5 Hyperlipidemia, unspecified
CPT/HCPCS: 36415; 71045; 80048; 80053; 80061; 80307; 82962; 83036; 83880; 84484; 85025; 93005; 93010; 94640; 96374; 99285; J0360; J1650; J1815; J2270; J2930; J3490; J7030; J7512

== ENCOUNTER 2020-05-29 21:00 | Emergency (ER) | payer MEDICAID ==
--- NOTE | 2020-05-29 21:59 | EKG REPORT ---
SEVERITY:- ABNORMAL ECG - SINUS RHYTHM PROBABLE LEFT ATRIAL ABNORMALITY ABNORMAL T, CONSIDER ISCHEMIA, JUANITA LATERAL LEADS : Confirmed by: Lennox Yusuf MD 29-May-2020 21:58:52
--- NOTE | 2020-05-29 22:15 | ER Document Report ---
ED Medical Screen (RME) - General Chief Complaint: Breathing Difficulty Stated Complaint: BREATHING DIFFICULTY, PAIN IN BACK ON RIGHT SIDE Time Seen by Provider: 05/29/20 22:09 Primary Care Provider: ROSANNE ZEPEDA [Primary Care Provider] - Follow up as needed Mode of Arrival: Ambulatory Information source: Patient TRAVEL OUTSIDE OF THE [place] IN LAST 30 DAYS: No - HPI Patient complains to provider of: Right posterior chest pain Notes: 05/29/20 22:13 Patient with complaints of pain in her right upper back. States it worse when she moves or takes a deep breath. Patient has a history of congestive heart failure. She states that she has her normal shortness of breath. She denies any fever or cough. She denies blood thinning medications. No nausea, vomiting, diarrhea. Exam: Nontoxic, no distress. Lungs clear and equal throughout. Heart regular rate and rhythm. +1 pitting edema to the bilateral lower extremities. An initial examination was made on the patient as part of the triage process, and it was determined a more comprehensive evaluation was necessary. Initial orders were placed and patient was transferred to another provider in the ED who assumed care and finished evaluation and plan. - Related Data Allergies/Adverse Reactions: No Known Allergies Allergy (Verified 03/31/20 14:54) Past Medical History - Past Medical History Cardiac Medical History: Reports: Hx Congestive Heart Failure, Hx Coronary Artery Disease, Hx Hypercholesterolemia, Hx Hypertension Denies: Hx DVT, Hx Heart Attack, Hx Pulmonary Embolism Pulmonary Medical History: Reports: Hx Asthma, Hx Bronchitis, Hx COPD Denies: Hx Pneumonia Neurological Medical History: Reports: Hx Cerebrovascular Accident - several years ago/no residual effects. Denies: Hx Seizures Endocrine Medical History: Reports: Hx Diabetes Mellitus Type 2. Denies: Hx Hyperthyroidism, Hx Hypothyroidism Renal/ Medical History: Denies: Hx Peritoneal Dialysis GI Medical History: Denies: Hx Cirrhosis, Hx Gastroesophageal Reflux Disease, Hx Hepatitis, Hx Hiatal Hernia, Hx Ulcer Musculoskeltal Medical History: Denies Hx Arthritis Psychiatric Medical History: Reports: Hx Depression - denies suicidal/homicidal ideation Infectious Medical History: Denies: Hx Hepatitis Past Surgical History: Reports: Hx Cardiac Catheterization, Hx Cardiac Surgery - CABG, Hx Section, Hx Coronary Artery Bypass Graft, Hx Hysterectomy, Hx Tubal Ligation, Hx Vascular Surgery - Right carotid endarterectomy. Denies: Hx Mastectomy, Hx Open Heart Surgery, Hx Pacemaker - Immunizations Hx Diphtheria, Pertussis, Tetanus Vaccination: No Physical Exam - Vital signs Vitals: Temp Pulse Resp BP Pulse Ox 98.4 F 78 21 H 160/74 H 94 05/29/20 21:17 05/29/20 21:17 05/29/20 21:17 05/29/20 21:17 05/29/20 21:17 Course - Vital Signs Vital signs: Temp Pulse Resp BP Pulse Ox 98.4 F 78 21 H 160/74 H 94 05/29/20 21:17 05/29/20 21:17 05/29/20 21:17 05/29/20 21:17 05/29/20 21:17 Doctor's Discharge - Discharge Referrals: LOCALMD,NO [Primary Care Provider] - Follow up as needed
[2020-05-29 22:51] LABS: ABSOLUTE BASOPHILS # (AUTO) 0.1 10^3/uL (0.0-0.2); ABSOLUTE EOSINOPHILS # (AUTO) 0.1 10^3/uL (0.0-0.6); ABSOLUTE LYMPHOCYTES (AUTO) 2.3 10^3/uL (0.5-4.7); ABSOLUTE MONOCYTES (AUTO) 0.6 10^3/uL (0.1-1.4); ABSOLUTE NEUT (AUTO) 5.6 10^3/uL (1.7-8.2); BASOPHILS % (AUTO) 0.7 % (0-2); EOSINOPHILS % (AUTO) 0.9 % (0-6); HEMATOCRIT 40.1 % (36.0-47.0); HEMOGLOBIN 13.1 g/dL (12.0-15.5); MEAN CORPUSCULAR HEMOGLOBIN 29.9 pg (27.0-33.4); MEAN CORPUSCULAR HGB CONC 32.7 g/dL (32.0-36.0); MEAN CORPUSCULAR VOLUME 92 fl (80-97); MONOCYTES % (AUTO) 7.1 % (3-13); PLATELET COUNT 309 10^3/uL (150-450); RED BLOOD COUNT 4.38 10^6/uL (3.72-5.28); SEGMENTED NEUTROPHILS % (AUTO) 64.3 % (42-78); TOTAL CELLS COUNTED % (AUTO) 100 %; WHITE BLOOD COUNT 8.7 10^3/uL (4.0-10.5)
[2020-05-29 22:54] LABS: APPEARANCE,URINE CLEAR; BILIRUBIN,URINE NEGATIVE (NEGATIVE); COLOR,URINE STRAW; GLUCOSE, URINE >=500 mg/dL (NEGATIVE); KETONES,URINE NEGATIVE (NEGATIVE); LEUKOCYTE ESTERASE,URINE TRACE (NEGATIVE); NITRITE,URINE NEGATIVE (NEGATIVE); PROTEIN,URINE NEGATIVE (NEGATIVE); URINE SPECIFIC GRAVITY 1.026; UROBILINOGEN,URINE NEGATIVE mg/dL (<2.0)
--- NOTE | 2020-05-29 23:08 | RADIOLOGY REPORT (SQ) ---
EXAM DESCRIPTION: XR CHEST 2 VIEWS COMPLETED DATE/TME: 05/29/2020 22:45 CLINICAL HISTORY: 64 years, Female, right posterior CP COMPARISON: 03/31/2020 chest NUMBER OF VIEWS: 2 TECHNIQUE: Frontal and lateral views of the chest LIMITATIONS: None. FINDINGS: Cardiomegaly. Atheromatous change thoracic aorta. Osteopenia. Stable left apical pleural thickening. Lungs are otherwise clear. No pneumothorax IMPRESSION: Cardiomegaly. No acute cardiopulmonary process. copyright 2010 [employer]- All Rights Reserved
[2020-05-29 23:09] LABS: ALBUMIN 4.1 g/dL (3.5-5.0); ALKALINE PHOSPHATASE 111 U/L (38-126); ANION GAP 6 (5-19); ASPARTATE AMINO TRANSFERASE 19 U/L (14-36); BILIRUBIN,DIRECT 0.2 mg/dL (0.0-0.4); BILIRUBIN,TOTAL 0.7 mg/dL (0.2-1.3); BLOOD UREA NITROGEN 23 mg/dL (7-20); CALCIUM 9.6 mg/dL (8.4-10.2); CARBON DIOXIDE 31 mmol/L (22-30); CHLORIDE 102 mmol/L (98-107); GLUCOSE 251 mg/dL (75-110); POTASSIUM 4.8 mmol/L (3.6-5.0)
[2020-05-29 23:20] LABS: NT PRO BNP 195 pg/mL (<125)
[2020-05-29 23:21] LABS: TROPONIN I < 0.012 ng/mL
--- NOTE | 2020-05-30 01:05 | ER Document Report ---
Doctor's Note Notes: 05/30/20 01:05 I reviewed chart and added orders to expedite patient care, patient waiting for full evaluation by treating provider.
--- NOTE | 2020-05-30 11:42 | RADIOLOGY REPORT (SQ) ---
EXAM DESCRIPTION: CTA CHEST IMAGES COMPLETED DATE/TIME: 05/30/2020 10:03 am REASON FOR STUDY: pain/sob COMPARISON: Chest radiograph, 05/29/2020. Chest radiograph, 03/18/2016. TECHNIQUE: CT scan of the chest performed using helical scanning technique with dynamic intravenous contrast injection. Images reviewed with lung, soft tissue and bone windows. Reconstructed coronal and sagittal MPR images reviewed. Additional 3 dimensional post-processing performed to develop Maximal Intensity Projection images (FL P). All images stored on PACS. All CT scanners at this facility use dose modulation, iterative reconstruction, and/or weight based d osing when appropriate to reduce radiation dose to as low as reasonably achievable (ALARA). [facility]: Dose Right [facility]: CareDose [facility]: Dose Right [facility]: Teradose 4D [facility]: zLense CONTRAST TYPE AND DOSE: contrast/concentration: Isovue 350.00 mmol/ml; Total Contrast Delivered: 63. 0 ml; Total Saline Delivered: 45.6 ml Contrast bolus optimized for the pulmonary arteries. Not diagnostic for the aorta. RENAL FUNCTION: GFR > 60. RADIATION DOSE: CT Rad equipment meets quality standard of care and radiation dose reduction techniq ues were employed. CTDIvol: 19.8 - 25.8 mGy. DLP: 831 mGy-cm. . LIMITATIONS: None. FINDINGS: LUNGS AND PLEURA: Trachea has normal caliber and appearance. [facility] no bronchial wall thick ening or bronchiectasis. No focal consolidation or pleural effusion. No significant ground-glass at tenuation. Mild atelectasis bilateral lung bases. AORTA AND GREAT VESSELS: No aneurysm. Contrast bolus not optimized for the aorta. HEART: The heart is moderately enlarged. No pericardial effusion. Postoperative changes of prior CA BG. PULMONARY ARTERIES: No emboli visualized in the main pulmonary arteries or the segmental branches. HILAR AND MEDIASTINAL STRUCTURES: No identified masses or abnormal nodes. HARDWARE: None in the chest. UPPER ABDOMEN: No significant findings. Limited exam. THYROID AND OTHER SOFT TISSUES: No masses. No adenopathy. BONES: Age-indeterminate severe compression fracture at T3, with sclerotic appearance, suggestive of chronic or subacute fracture. Osteoarthritis right shoulder. No suspicious bone lesions. 3D MIPS: Confirm above findings. OTHER: No other significant finding. IMPRESSION: 1. No pulmonary embolism. No acute pulmonary disease. 2. Technically age-indeterminate severe compression fracture at T3, with more sclerotic appearance martinez ggestive of chronic or possibly subacute fracture. 3. Moderate cardiomegaly. COMMENT: Quality ID # [id number]: Final reports with documentation of one or more dose reduction techniques (e.g., Automated exposure control, adjustment of the mA and/or kV according to patient size, use of iterative reconstruction technique) TECHNICAL DOCUMENTATION: JOB ID: [id number] 2010 [employer]- All Rights Reserved Reading location - IP/workstation name: [email or web address]
[2020-05-30] MEDS ORDERED: MORPHINE SULFATE 10 MG/ML INJ IV ONE (12:17)
--- NOTE | 2020-05-30 12:51 | ER Document Report ---
ED General - General Chief Complaint: Shortness Of Breath Stated Complaint: BREATHING DIFFICULTY, PAIN IN BACK ON RIGHT SIDE Time Seen by Provider: 05/29/20 22:09 Primary Care Provider: ROSANNE ZEPEDA [NO LOCAL MD] - Follow up as needed Mode of Arrival: Ambulatory Information source: Patient TRAVEL OUTSIDE OF THE [place] IN LAST 30 DAYS: No - HPI Notes: Patient complains of midthoracic back pain. She states it does radiate to her r ight arm at times. She states the pain is been worse over the last week. Has been coming and going. She does not know of anything that makes it better or worse. It has been a sharp pain. And she states it feels "like a hole in my back". She has had some shortness of breath. No cough. No significant chest pain. No vomiting or diarrhea. No known trauma. - Related Data Allergies/Adverse Reactions: No Known Allergies Allergy (Verified 03/31/20 14:54) Home Medications: SEE LIST Past Medical History - General Information source: Patient - Social History Smoking Status: Former Smoker Frequency of alcohol use: None Drug Abuse: None Family History: CAD, CVA, DM - Past Medical History Cardiac Medical History: Reports: Hx Congestive Heart Failure, Hx Coronary Artery Disease, Hx Hypercholesterolemia, Hx Hypertension Denies: Hx DVT, Hx Heart Attack, Hx Pulmonary Embolism Pulmonary Medical History: Reports: Hx Asthma, Hx Bronchitis, Hx COPD Denies: Hx Pneumonia Neurological Medical History: Reports: Hx Cerebrovascular Accident - several years ago/no residual effects. Denies: Hx Seizures Endocrine Medical History: Reports: Hx Diabetes Mellitus Type 2. Denies: Hx Hyperthyroidism, Hx Hypothyroidism Renal/ Medical History: Denies: Hx Peritoneal Dialysis GI Medical History: Denies: Hx Cirrhosis, Hx Gastroesophageal Reflux Disease, Hx Hepatitis, Hx Hiatal Hernia, Hx Ulcer Musculoskeletal Medical History: Denies Hx Arthritis Psychiatric Medical History: Reports: Hx Depression - denies suicidal/homicidal ideation Infectious Medical History: Denies: Hx Hepatitis Past Surgical History: Reports: Hx Cardiac Catheterization, Hx Cardiac Surgery - CABG, Hx Section, Hx Coronary Artery Bypass Graft, Hx Hysterectomy, Hx Tubal Ligation, Hx Vascular Surgery - Right carotid endarterectomy. Denies: Hx Mastectomy, Hx Open Heart Surgery, Hx Pacemaker - Immunizations Hx Diphtheria, Pertussis, Tetanus Vaccination: No Review of Systems - Review of Systems Constitutional: denies: Chills, Fever Cardiovascular: denies: Chest pain, Palpitations Respiratory: Short of breath. denies: Cough -: Yes All other systems reviewed and negative Physical Exam - Vital signs Vitals: Temp Pulse Resp BP Pulse Ox 98.4 F 78 21 H 160/74 H 94 05/29/20 21:17 05/29/20 21:17 05/29/20 21:17 05/29/20 21:17 05/29/20 21:17 Interpretation: Hypertensive - General General appearance: Appears well, Alert - HEENT Head: Normocephalic, Atraumatic Eyes: Normal Pupils: PERRL - Respiratory Respiratory status: No respiratory distress Chest status: Nontender Breath sounds: Normal Chest palpation: Normal - Cardiovascular Rhythm: Regular Heart sounds: Normal auscultation Murmur: No - Abdominal Inspection: Normal Distension: No distension Bowel sounds: Normal Tenderness: Nontender Organomegaly: No organomegaly - Back Back: Tender - Patient has some diffuse tenderness of the upper thoracic spine. - Extremities General upper extremity: Normal inspection, Nontender, Normal color, Normal ROM, Normal temperature General lower extremity: Normal inspection, Nontender, Normal color, Normal ROM, Normal temperature, Normal weight bearing. No: Kacie's sign - Neurological Neuro grossly intact: Yes Cognition: Normal Orientation: AAOx4 Bernice Coma Scale Eye Opening: Spontaneous Bernice Coma Scale Verbal: Oriented [place] Coma Scale Motor: Obeys Commands [place] Coma Scale Total: 15 Speech: Normal Motor strength normal: LUE, RUE, LLE, RLE Sensory: Normal - Psychological Associated symptoms: Normal affect, Normal mood - Skin Skin Temperature: Warm Skin Moisture: Dry Skin Color: Normal Course - Re-evaluation Re-evalutation: 05/30/20 12:51 Patient is work-up is remarkable for a compression fracture of T3 of an indeterminate age. At this time an MRI has been ordered to further delineate the nature of this fracture. MRI was not able to be obtained due to patient possibly having a metal shunt in her neck. Patient was unable to give details doing an MRI and the patient I also called and discussed with radiology if a CT scan was dedicated to thoracic spine would be of benefit. They stated that they did not feel would add any more than what was seen on the previous CT scan. They did recommend the patient get an outpatient bone scan and follow-up with orthopedics which I will do. 05/30/20 15:08 - Vital Signs Vital signs: Temp Pulse Resp BP Pulse Ox 98.2 F 72 18 178/83 H 99 05/30/20 13:00 05/30/20 13:00 05/30/20 13:00 05/30/20 13:00 05/30/20 13:00 - Laboratory Results Result Diagrams: 05/29/20 22:38 05/29/20 22:38 Laboratory Results Interpreted: 05/29/20 05/29/20 05/29/20 22:38 22:38 22:38 Carbon Dioxide 31 H BUN 23 H Glucose 251 H POC Glucose NT-Pro-B Natriuret Pep 195 H Urine Glucose (UA) >=500 H Ur Leukocyte Esterase TRACE H 05/30/20 07:42 Carbon Dioxide BUN Glucose POC Glucose 146 H NT-Pro-B Natriuret Pep Urine Glucose (UA) Ur Leukocyte Esterase Critical Laboratory Results Reviewed: No Critical Results - Radiology Results Critical Radiology Results Reviewed: Yes Attending or Supervising Physician who Reviewed Radiology: ISAIAS KEANE - EKG Interpretation by Or EKG shows normal: Sinus rhythm Rate: Normal - 83 Rhythm: NSR [place]/QRS: No: Right axis deviation, Left axis deviation When compared to previous EKG there are: No significant change Discharge - Discharge Clinical Impression: Thoracic compression fracture Qualifiers: Encounter type: initial encounter Thoracic vertebra fracture level: T3 Qualified Code(s): S22.030A - Wedge compression fracture of third thoracic vertebra, initial encounter for closed fracture Condition: Stable Disposition: HOME, SELF-CARE Additional Instructions: Please follow-up with orthopedics as soon as possible Prescriptions: Hydrocodone/Acetaminophen [[place] 5-325 mg Tablet] 1 tab PO Q6 PRN 3 Days #12 tablet PRN Reason: Forms: Return to Work Referrals: VIKY PAYAN MD [ASSOCIATE] - Follow up in 3-5 days
[2020-05-30 16:30] VITALS: BP 164/78
== END 2020-05-30 16:00 | disposition home or self-care (01) ==
LOC: ER 21:00
DX: S22.030A Wedge compression fracture of third thoracic vertebra, initial encounter for closed fracture (principal); X58.XXXA Exposure to other specified factors, initial encounter; R06.00 Dyspnea, unspecified; M54.9 Dorsalgia, unspecified; R07.89 Other chest pain; I50.9 Heart failure, unspecified; I25.10 Atherosclerotic heart disease of native coronary artery without angina pectoris; I11.0 Hypertensive heart disease with heart failure; E78.00 Pure hypercholesterolemia, unspecified; Z86.73 Personal history of transient ischemic attack (TIA), and cerebral infarction without residual deficits; E11.9 Type 2 diabetes mellitus without complications; Z95.1 Presence of aortocoronary bypass graft
CPT/HCPCS: 99285; 96374; 36415; 82962; 85025; 80053; 81001; 84484; 85379; 83880; 71046; 71275; 93005; 93010; J2270